=== PATIENT | male | born 1950 | race Caucasian/White ===

== ENCOUNTER 2016-12-30 20:23 | Emergency (ER) | payer MEDICARE, OTHER ==
[2016-12-30 20:31] VITALS: PULSE 64
--- NOTE | 2016-12-30 20:36 | ERPHSYRPT ---
- History of Present Illness Time Seen by Provider: 12/30/16 20:31 Source: patient, family Exam Limitations: no limitations Physician History: pt struck his left forearm with a coke can swatting a wasp at noon and it swelled up afterward; does not think it was a sting but has rl when moving it; pt had prior stent but has no cardiac symptoms no CP or pressure or SOB , left arm pain is reproduced exactly by palpation of the erythematous swollen distal left arm upp joints nontender Occurred: this afternoon Method of Injury: direct blow Quality: constant Severity of Pain-Max: mild Severity of Pain-Current: mild Extremities Pain Location: forearm: left Modifying Factors: Improves With: cold therapy, immobilization, movement Associated Symptoms: none, No chest discomfort, No chest pain, No dyspnea, No jaw pain, No neck pain, No short of breath Allergies/Adverse Reactions: No Known Drug Allergies Allergy (Unverified 12/30/16 20:47) Home Medications: Aspirin 81 mg PO DAILY 03/31/15 [History] Buspirone HCl [Buspar] 7.5 mg PO 03/31/15 [History] Nitroglycerin 0.4 mg Tablet [Nitrostat 0.4 MG Tablet] 0.4 mg SL UD [History] Omeprazole 20 MG [Prilosec 20 mg] 20 mg PO DAILY 03/31/15 [History] Pravastatin Sodium 40 mg PO DAILY 03/31/15 [History] Ramipril [Altace] 2.5 mg PO DAILY 03/31/15 [History] Tamsulosin HCl 0.4 mg [Flomax 0.4 MG] 0.4 mg PO HS 03/31/15 [History] - Review of Systems Constitutional: No Fever, No Chills Eyes: No Symptoms Ears, Nose, & Throat: No Symptoms Respiratory: No Cough, No Dyspnea Cardiac: No Chest Pain, No Edema, No Syncope Abdominal/Gastrointestinal: No Abdominal Pain, No Nausea, No Vomiting, No Diarrhea Genitourinary Symptoms: No Dysuria Musculoskeletal: Injury (left forearm and reproduces pain exactly), No Back Pain , No Neck Pain Skin: No Rash Neurological: No Dizziness, No Focal Weakness, No Sensory Changes Psychological: No Symptoms Endocrine: No Symptoms All Other Systems: Reviewed and Negative - Past Medical History Pertinent Past Medical History: Yes Neurological History: No Pertinent History ENT History: No Pertinent History Cardiac History: High Cholesterol, Hypertension, Other Respiratory History: No Pertinent History Endocrine Medical History: No Pertinent History Musculoskeletal History: No Pertinent History GI Medical History: GERD History: No Pertinent History Psycho-Social History: No Pertinent History Male Reproductive Disorders: Other Other Medical History: states not sure why he takes flomax,denies prostate problems,heart attack 2006 - Past Surgical History Past Surgical History: Yes Neuro Surgical History: No Pertinent History Cardiac: Cardiac Stent Respiratory: No Pertinent History Gastrointestinal: Cholecystectomy Genitourinary: No Pertinent History Musculoskeletal: No Pertinent History Male Surgical History: No Pertinent History Other Surgical History: 2006 heart attack with stent placed, - Social History Smoking Status: Never smoker Exposure to second hand smoke: No Drug Use: none - Nursing Vital Signs Nursing Vital Signs: Initial Vital Signs Temperature 97.9 F 12/30/16 20:30 Pulse Rate 64 12/30/16 20:30 Respiratory Rate 18 12/30/16 20:30 Blood Pressure 141/77 12/30/16 20:30 O2 Sat by Pulse Oximetry 98 12/30/16 20:30 Pain Scale Pain Intensity 2 - Physical Exam General Appearance: no apparent distress, alert Eyes, Ears, Nose, Throat Exam: pharynx normal, moist mucous membranes, No pharyngeal erythema Neck Exam: non-tender, supple, No meningismus Cardiovascular/Respiratory Exam: chest non-tender, normal breath sounds, regular rate/rhythm, heart sounds normal, no respiratory distress, No rales, No rhonchi, No wheezing Abdominal Exam: non-tender, No guarding Back Exam: normal inspection, normal range of motion, No vertebral tenderness Shoulder Exam: normal inspection, non-tender, no evidence of injury, normal ROM Elbow/Forearm Exam: normal inspection, normal ROM, soft tissue tenderness, swelling (distal forearm ) Wrist Exam: normal inspection, non-tender, no evidence of injury, normal ROM Hand Exam: normal inspection, non-tender, no evidence of injury, normal ROM DTR - Upper Extremity Exam: bicep (R): 2+, bicep (L): 2+, tricep (R): 2+, tricep (L): 2+ Neuro/Tendon Exam: normal sensation, normal motor functions, normal tendon functions Mental Status Exam: alert, oriented x 3, cooperative Skin Exam: normal color, warm, dry, No rash SpO2 Interpretation: normal SpO2: 98 Oxygen Delivery: Room Air - Course Nursing assessment & vital signs reviewed: Yes - Radiology Exams Left Forearm X-ray Interpretation: Reviewed by me, No Fracture Ordered Tests: Active Orders 24 hr Category Date Time Status Ice Pack, Apply PRN Care 12/30/16 20:32 Active FOREARM Stat Exams 12/30/16 20:37 Taken Medication Summary Discontinued Medications Generic Name Dose Route Start Last Admin Trade Name Berta PRN Reason Stop Dose Admin Diphenhydramine HCl 50 mg 12/30/16 20:38 12/30/16 20:42 Benadryl 25 Mg Capsule PO 12/30/16 20:39 50 mg STAT ONE Administration Diphenhydramine HCl Confirm 12/30/16 20:41 Benadryl 25 Mg Capsule Administered 12/30/16 20:42 Dose 50 mg .ROUTE .STK-MED ONE - Progress Progress: improved, re-examined Progress Note: 12/30/16 21:23 swelling gradually decreasing no additional symptoms or concerns Counseled pt/family regarding: diagnosis, need for follow-up, rad results - Departure Time of Disposition: 21:29 Departure Disposition: Home Clinical Impression: Contusion of left forearm, beesting Condition: Good Critical Care Time: No Referrals: MAN [facility]ON [Primary Care Provider] - Instructions: Care for an Insect Bite or Sting, Insect Bites and Stings, Contusion Additional Instructions: followup your blood pressure with your Dr. continue to use intermittent ice , rest and elevate arm next 24 hours ; followup with your Dr. or return if not resolving next few days or if increased swelling or redness;
[2016-12-30] MEDS ORDERED: BENADRYL 25 MG CAPSULE PO ONE (20:38)
[2016-12-30] MEDS ORDERED: BENADRYL 25 MG CAPSULE ONE (20:41)
[2016-12-30 21:46] VITALS: BP 110/74; O2SAT 97
--- NOTE | 2016-12-31 09:54 | XRAY ---
Indication: Pain following injury. Comparison: None 2 views of the left forearm obtained. No bony, articular, or soft tissue abnormalities.
== END 2016-12-30 21:46 | disposition home or self-care (01) ==
LOC: ED 20:23
DX: S50.12XA Contusion of left forearm, initial encounter (principal); T63.441A Toxic effect of venom of bees, accidental (unintentional), initial encounter
CPT/HCPCS: 73090; 99283; A9270-GY

== ENCOUNTER 2019-11-11 15:58 | Observation (INO) | payer MEDICARE ==
--- NOTE | 2019-11-11 16:11 | ERPHSYRPT ---
- History of Present Illness Time Seen by Provider: 11/11/19 16:00 Source: patient Exam Limitations: no limitations Patient Subjective Stated Complaint: pt here for was outside for 15 mins today cutting boards and became dizzy and lightheaded, he states he worked outside y as well. denies any chest pain Triage Nursing Assessment: pt alert, arrived per ambulance, mask applied to pt, resp easy, skin warm,moist, pink, no pain,moves all ext well. no edema noted, Physician History: Patient is a 69-year-old male presents to our ED with complaints of dizziness lightheadedness and a headache. Patient was working outdoors in the hot weather cutting wood. Patient became symptomatic and sat down on the steps. Symptoms did not resolve. Patient called 911 for an evaluation. No associated chest pain. No nausea or vomiting. No diaphoresis. Symptoms are mild to moderate in intensity. No specific worsening or improving factors. Patient voices no other complaints at this time. Timing/Duration: today Severity: moderate Modifying Factors: Improves With: nothing Associated Symptoms: headaches, No shortness of breath, No rash, No syncope, No seizure Allergies/Adverse Reactions: acetaminophen [From [place]] Allergy (Verified 11/11/19 16:07) hydrocodone [From [place]] Allergy (Verified 11/11/19 16:07) Home Medications: Buspirone HCl [Buspar] 15 mg PO BID 03/31/15 [History] Nitroglycerin 0.4 mg Tablet [Nitrostat 0.4 MG Tablet] 0.4 mg SL UD PRN 03/31/15 [History] Pravastatin Sodium 40 mg PO HS 03/31/15 [History] Tamsulosin HCl 0.4 mg [Flomax 0.4 MG] 0.4 mg PO HS 03/31/15 [History] Diltiazem HCl [Diltiazem ER] 180 mg PO DAILY 06/30/19 [History] Omeprazole 10 mg PO DAILY 06/30/19 [History] Warfarin Sodium 5 mg PO SUMOWEFRSA@1800 06/30/19 [History] Warfarin Sodium 7.5 mg PO TUTH@1800 06/30/19 [History] Hx Tetanus, Diphtheria Vaccination/Date Given: Yes (2011) Hx Influenza Vaccination/Date Given: Yes Hx Pneumococcal Vaccination/Date Given: Yes Immunizations Up to Date: Yes Travel Risk - International Travel Have you traveled outside of the country in past 3 weeks: No - Coronavirus Screening Are you exhibiting any of the following symptoms?: No Close contact with a COVID-19 positive Pt in past 14-21 Days: No - Review of Systems Constitutional: No Symptoms, No Fever, No Chills Eyes: No Symptoms Ears, Nose, & Throat: No Symptoms Respiratory: No Symptoms, No Cough, No Dyspnea Cardiac: No Symptoms, No Chest Pain, No Edema, No Syncope Abdominal/Gastrointestinal: No Symptoms, No Abdominal Pain, No Nausea, No Vomiting, No Diarrhea Genitourinary Symptoms: No Symptoms, No Dysuria Musculoskeletal: No Symptoms, No Back Pain, No Neck Pain Skin: No Symptoms, No Rash Neurological: No Symptoms, No Dizziness, No Focal Weakness, No Sensory Changes Psychological: No Symptoms Endocrine: No Symptoms Hematologic/Lymphatic: No Symptoms Immunological/Allergic: No Symptoms All Other Systems: Reviewed and Negative - Past Medical History Pertinent Past Medical History: Yes Neurological History: Migraines ENT History: No Pertinent History Cardiac History: Coronary Artery Disease, Myocardial Infarction ([place]) Respiratory History: Sleep Apnea Endocrine Medical History: No Pertinent History Musculoskeletal History: No Pertinent History GI Medical History: GERD History: No Pertinent History Psycho-Social History: No Pertinent History Male Reproductive Disorders: Other Other Medical History: [place] 2006, GALLBLADDER REMOVED 25+ YEARS AGO - Past Surgical History Past Surgical History: Yes Neuro Surgical History: No Pertinent History Cardiac: Cardiac Catheterization, Cardiac Stent Respiratory: No Pertinent History Gastrointestinal: Cholecystectomy Genitourinary: No Pertinent History Musculoskeletal: No Pertinent History Male Surgical History: No Pertinent History Other Surgical History: 2006 heart attack with stent placed, - Social History Smoking Status: Never smoker Exposure to second hand smoke: No Drug Use: none Patient Lives Alone: No - Nursing Vital Signs Nursing Vital Signs: Initial Vital Signs Temperature 97.9 F 11/11/19 15:59 Pulse Rate 63 11/11/19 15:59 Respiratory Rate 16 11/11/19 15:59 Blood Pressure 136/70 11/11/19 15:59 O2 Sat by Pulse Oximetry 97 11/11/19 15:59 Pain Scale Pain Intensity 0 - Physical Exam General Appearance: no apparent distress, alert Eye Exam: PERRL/EOMI, eyes nml inspection Ears, Nose, Throat Exam: normal ENT inspection, TMs normal, pharynx normal, moist mucous membranes Neck Exam: normal inspection, non-tender, supple, full range of motion Respiratory Exam: normal breath sounds, lungs clear, No respiratory distress Cardiovascular Exam: regular rate/rhythm, normal heart sounds, normal peripheral pulses Gastrointestinal/Abdomen Exam: soft, normal bowel sounds, No tenderness, No mass Male Genitalia Exam: normal genitalia Back Exam: normal inspection, normal range of motion, No CVA tenderness, No vertebral tenderness Extremity Exam: normal inspection, normal range of motion, pelvis stable Neurologic Exam: alert, oriented x 3, cooperative, normal mood/affect, nml cerebellar function, nml station & gait, sensation nml, No motor deficits Skin Exam: normal color, warm, dry, No rash Lymphatic Exam: No adenopathy SpO2 Interpretation: normal SpO2: 97 O2 Delivery: Room Air - Course Nursing assessment & vital signs reviewed: Yes EKG Interpreted by Me: RATE (59), Sinus Rhythm, NORMAL AXIS, NORMAL INTERVALS, Left Bundle Branch Block - Radiology Exams Chest X-ray Interpretation: Teleradiologist Report (Chest again demonstrates normal heart and lungs. Bony thorax intact with minimal degenerative changes. No new acute findings.) - CT Exams Head CT Interpretation: Tele-radiologist Report (Normal appearing brain parenchyma ventricles and bony calvarium. Visualized paranasal sinuses and mastoid air cells are clear.) Ordered Tests: Active Orders 24 hr Category Date Time Status Newspaper Peddler STAT Care 11/11/19 16:09 Active EKG-ER Only STAT Care 11/11/19 16:07 Active IV Insertion STAT Care 11/11/19 16:07 Active Pulse Oximetry (ED) STAT Care 11/11/19 16:07 Active CHEST 1 VIEW (PORTABLE) Stat Exams 11/11/19 16:09 Completed HEAD WITHOUT CONTRAST [CT] Stat Exams 11/11/19 16:11 Completed CBC W DIFF Stat Lab 11/11/19 16:07 Completed CMP Stat Lab 11/11/19 16:15 Completed MAGNESIUM Stat Lab 11/11/19 16:15 Completed PROTIME WITH INR Stat Lab 11/11/19 16:15 Received PTT Stat Lab 11/11/19 16:15 Received TROPONIN Q3H Lab 11/11/19 16:15 Completed TROPONIN Q3H Lab 11/11/19 19:15 Ordered TROPONIN Q3H Lab 11/11/19 22:15 Ordered TROPONIN Q3H Lab 11/12/19 01:15 Ordered TROPONIN Q3H Lab 11/12/19 04:15 Ordered UA W/RFX UR CULTURE Stat Lab 11/11/19 16:09 Uncollected Medication Summary Generic Name Dose Route Start Last Admin Trade Name Berta PRN Reason Stop Dose Admin Sodium Chloride 1,000 mls @ 100 mls/hr 11/11/19 16:15 11/11/19 16:25 Sodium Chloride 0.9% 1000 Ml IV 12/11/19 16:14 100 mls/hr .Q10H PETRA Administration Lab/Rad Data: Laboratory Result Diagrams 11/11/19 16:07 11/11/19 16:15 Laboratory Results 11/11/19 11/11/19 11/11/19 Range/Units 16:15 16:15 16:15 WBC (4.0-10.5) K/mm3 RBC (4.1-5.6) M/mm3 Hgb (12.5-18.0) gm/dl Hct (42-50) % MCV (78-100) fl MCH (26-32) pg MCHC (32-36) g/dl RDW (11.5-14.0) % Plt Count (150-450) K/mm3 MPV (7.5-11.0) fl Gran % (36.0-66.0) % Eos # (Auto) (0-0.5) Absolute Lymphs (auto) (1.0-4.6) Absolute Monos (auto) (0.0-1.3) Lymphocytes % (24.0-44.0) % Monocytes % (0.0-12.0) % Eosinophils % (0.00-5.0) % Basophils % (0.0-0.4) % Absolute Granulocytes (1.4-6.9) Basophils # (0-0.4) PT 22.2 H (8.83-12.87) SECONDS INR 1.95 (0.8-3.0) APTT 31.2 (24.1-36.1) SECONDS Sodium 141 (137-145) mmol/L Potassium 3.9 (3.5-5.1) mmol/L Chloride 106 (98-107) mmol/L Carbon Dioxide 28 (22-30) mmol/L Anion Gap 10.4 (5-15) MEQ/L BUN 23 H (9-20) mg/dL Creatinine 1.18 (0.66-1.25) mg/dL Estimated GFR > 60.0 ML/MIN Glucose 102 (74-106) mg/dL Calcium 9.0 (8.4-10.2) mg/dL Magnesium 2.1 (1.6-2.3) mg/dL Total Bilirubin 1.40 H (0.2-1.3) mg/dL AST 24 (17-59) U/L ALT 19 (0-50) U/L Alkaline Phosphatase 75 (38-126) U/L Troponin I < 0.012 (0.000-0.034) ng/mL Serum Total Protein 6.9 (6.3-8.2) g/dL Albumin 4.0 (3.5-5.0) g/dL // Range/Units 16:07 WBC 6.2 (4.0-10.5) K/mm3 RBC 4.26 (4.1-5.6) M/mm3 Hgb 13.5 (12.5-18.0) gm/dl Hct 41.0 L (42-50) % MCV 96.2 (78-100) fl MCH 31.7 (26-32) pg MCHC 32.9 (32-36) g/dl RDW 13.2 (11.5-14.0) % Plt Count 168 (150-450) K/mm3 MPV 12.0 H (7.5-11.0) fl Gran % 46.7 (36.0-66.0) % Eos # (Auto) 0.20 (0-0.5) Absolute Lymphs (auto) 2.42 (1.0-4.6) Absolute Monos (auto) 0.66 (0.0-1.3) Lymphocytes % 39.0 (24.0-44.0) % Monocytes % 10.6 (0.0-12.0) % Eosinophils % 3.2 (0.00-5.0) % Basophils % 0.5 (0.0-0.4) % Absolute Granulocytes 2.89 (1.4-6.9) Basophils # 0.03 (0-0.4) PT (8.83-12.87) SECONDS INR (0.8-3.0) APTT (24.1-36.1) SECONDS Sodium (137-145) mmol/L Potassium (3.5-5.1) mmol/L Chloride (98-107) mmol/L Carbon Dioxide (22-30) mmol/L Anion Gap (5-15) MEQ/L BUN (9-20) mg/dL Creatinine (0.66-1.25) mg/dL Estimated GFR ML/MIN Glucose (74-106) mg/dL Calcium (8.4-10.2) mg/dL Magnesium (1.6-2.3) mg/dL Total Bilirubin (0.2-1.3) mg/dL AST (17-59) U/L ALT (0-50) U/L Alkaline Phosphatase (38-126) U/L Troponin I (0.000-0.034) ng/mL Serum Total Protein (6.3-8.2) g/dL Albumin (3.5-5.0) g/dL - Departure Departure Disposition: Home, In-patient Admission Clinical Impression: Near syncope, LBBB (left bundle branch block) Condition: Stable Critical Care Time: No Referrals: [facility] [Primary Care Provider] -
[2019-11-11] MEDS ORDERED: Sodium Chloride 0.9% 1000 ML 1,000 ML IV SCH ×2 (16:15→20:19)
[2019-11-11 16:20] LABS: Absolute Neutrophil Ct (ANC) 2.89 (1.4-6.9); BASOPHIL % 0.5 % (0.0-0.4); Basophil (Absolute #) 0.03 (0-0.4); Eosinophil % 3.2 % (0.00-5.0); Hemoglobin 13.5 gm/dl (12.5-18.0); Lymphocyte (Absolute #) 2.42 (1.0-4.6); Mean Cell Volume 96.2 fl (78-100); Mean Corpuscular Hemoglobin 31.7 pg (26-32); Mean Corpuscular Hgb Concent. 32.9 g/dl (32-36); Monocyte (Absolute #) 0.66 (0.0-1.3); Monocytes % 10.6 % (0.0-12.0); Neutrophil % 46.7 % (36.0-66.0); Platelet Count 168 K/mm3 (150-450); Red Blood Count 4.26 M/mm3 (4.1-5.6); Red Cell Distribution Width 13.2 % (11.5-14.0); White Blood Count 6.2 K/mm3 (4.0-10.5)
[2019-11-11] MEDS ORDERED: Sodium Chloride 0.9% 1000 ML 1,000 ML ONE (16:20)
--- NOTE | 2019-11-11 16:31 | XRAY ---
Indication: Chest pain. Heat exhaustion. Comparison: May 11, 2014. Portable chest again demonstrates normal heart and lungs. Bony thorax intact again with minimal degenerative changes. No new/acute findings.
--- NOTE | 2019-11-11 16:31 | XRAY ---
Indication: Headache and dizziness. Heat exhaustion. Multiple contiguous axial images obtained through the head without contrast. Comparison: October 12, 2006. Again normal appearing brain parenchyma, ventricles, and bony calvarium. Visualized paranasal sinuses and mastoid air cells are clear. Impression: Continued normal CT head without contrast exam.
[2019-11-11 16:33] LABS: ALKALINE PHOSPHATASE 75 U/L (38-126); ANION GAP 10.4 MEQ/L (5-15); BLOOD UREA NITROGEN 23 mg/dL (9-20); CHLORIDE 106 mmol/L (98-107); Carbon Dioxide 28 mmol/L (22-30); Creatinine 1 1.18 mg/dL (0.66-1.25); Glucose 102 mg/dL (74-106); MAGNESIUM 2.1 mg/dL (1.6-2.3); Potassium 3.9 mmol/L (3.5-5.1); SGOT/AST 24 U/L (17-59); SGPT/ALT 19 U/L (0-50); SODIUM 141 mmol/L (137-145); Total Protein 6.9 g/dL (6.3-8.2)
[2019-11-11 16:35] LABS: INR 1.95 (0.8-3.0); PROTIME 22.2 SECONDS (8.83-12.87)
[2019-11-11 16:38] LABS: PTT 31.2 SECONDS (24.1-36.1)
[2019-11-11 19:21] LABS: Appearance CLEAR (CLEAR); Bilirubin NEGATIVE (NEGATIVE); Blood NEGATIVE Ery/ul (0-5); Glucose NEGATIVE (NEGATIVE); Ketones SMALL (NEGATIVE); Leukocyte Esterase NEGATIVE (NEGATIVE); Mucus SLIGHT /HPF (NEGATIVE); Nitrite NEGATIVE (NEGATIVE); Protein,Urine Dip NEGATIVE (Negative); Specific Gravity 1.017 (1.005-1.025); Urobilinogen 2 mg/dL (0-1)
[2019-11-11 19:27] LABS: Bacteria NONE SEEN /HPF (NEGATIVE); WBC NONE SEEN /HPF (0-5)
[2019-11-11] MEDS ORDERED: Nitrostat 0.4 MG Tablet SL PRN (20:37)
[2019-11-11] MEDS ORDERED: Coumadin 5 MG PO ONE (20:38)
[2019-11-11] MEDS ORDERED: Lactated Ringers 1,000 ML IV ONE (20:50)
[2019-11-11] MEDS ORDERED: ZOCOR 20MG PO SCH (22:00)
[2019-11-11] MEDS ORDERED: Flomax 0.4 MG PO SCH (22:00)
--- NOTE | 2019-11-11 22:00 | PCM.HP ---
History of Present Illness - Chief Complaint Chief Complaint: near syncope History of Present Illness: is a 69 year old male pt of mine from [facility] with CAD (hx RI and stent in 2006) who was seen in ER today for dizziness, found to have LBBB of undetermined age, and admitted for r/o RI. He was working outside for about 15 min and started having lightheadedness, band like pain around his head, and some nausea. He sat down; denies any chest pain or SOB, no palpitations. In ER his EKG was nsr, no ST changes, but LBBB and no old EKG to compare. First troponin is negative. In April of this year he apparently had some sort of arrhythmia and syncopal episode and was started on coumadin. I spoke with Dr. Bach, plastics seasoner operator for Dr. Duval, and he agreed with admitting the pt for serial troponins and overnight observation. - Review of Systems Abdominal/Gastrointestinal: Nausea Neurological: Dizziness, Headache All Other Systems: Reviewed and Negative Medications & Allergies Home Medications: Home Medication List Buspirone HCl [Buspar] 15 mg PO BID 03/31/15 [History Confirmed 11/11/19] Nitroglycerin 0.4 mg Tablet [Nitrostat 0.4 MG Tablet] 0.4 mg SL UD PRN 03/31/15 [History Confirmed 11/11/19] Pravastatin Sodium 40 mg PO HS 03/31/15 [History Confirmed 11/11/19] Tamsulosin HCl 0.4 mg [Flomax 0.4 MG] 0.4 mg PO HS 03/31/15 [History Confirmed 11/11/19] Diltiazem HCl [Diltiazem ER] 180 mg PO DAILY 06/30/19 [History Confirmed 11/11/19] Omeprazole 10 mg PO DAILY 06/30/19 [History Confirmed 11/11/19] Warfarin Sodium 5 mg PO SUMOWEFRSA@1800 06/30/19 [History Confirmed 11/11/19] Warfarin Sodium 7.5 mg PO TUTH@1800 06/30/19 [History Confirmed 11/11/19] Allergies/Adverse Reactions: Allergies Allergy/AdvReac Type Severity Reaction Status Date / Time acetaminophen [From [place]] Allergy Verified 11/11/19 16:07 hydrocodone [From [place]] Allergy Verified 11/11/19 16:07 - Past Medical History Past Medical History: Yes Neurological History: Migraines ENT History: No Pertinent History Cardiac History: Coronary Artery Disease, Myocardial Infarction (RI) Respiratory History: Sleep Apnea Endocrine Medical History: No Pertinent History Musculoskelatal History: No Pertinent History GI Medical History: GERD History: No Pertinent History Pyscho-Social History: Anxiety Male Reproductive Disorders: Other Comment: RI 2006, GALLBLADDER REMOVED 25+ YEARS AGO - Past Surgical History Past Surgical History: Yes Neuro Surgical History: No Pertinent History Cardiac History: Cardiac Catheterization, Cardiac Stent Respiratory Surgery: No Pertinent History GI Surgical History: Cholecystectomy Genitourinary Surgical Hx: No Pertinent History Musculskeletal Surgical Hx: No Pertinent History, Orthopedic Surgery Male Surgical History: No Pertinent History Other Surgical History: 2006 heart attack with stent placed, shoulder surgery may 2019 - Social History Smoking Status: Never smoker Exposure to second hand smoke: No Alcohol: Rarely Drug Use: none - Physical Exam Vital Signs: Vital Signs - 24 hr Temp Pulse Resp BP Pulse Ox 11/11/19 21:20 96 11/11/19 21:01 98.4 F 61 17 149/71 94 L 11/11/19 19:04 64 19 133/73 98 11/11/19 18:36 65 19 140/67 97 11/11/19 18:35 97 11/11/19 16:54 97 11/11/19 15:59 97.9 F 63 16 136/70 97 General Appearance: no apparent distress, alert Neurologic Exam: oriented x 3, cooperative Eye Exam: eyes nml inspection Ears, Nose, Throat Exam: moist mucous membranes Neck Exam: normal inspection, non-tender, No lymphadenopathy Respiratory Exam: normal breath sounds, lungs clear, No crackles/rales, No rhonchi, No wheezing Cardiovascular Exam: regular rate/rhythm, normal heart sounds, No murmur Back Exam: normal inspection, No rash Extremity Exam: No swelling, No tenderness Skin Exam: normal color, warm, dry, No rash Results - Labs Lab/Micro Results: Lab Results-Last 24 Hours 11/11/19 11/11/19 11/11/19 Range/Units 16:07 16:15 16:15 WBC 6.2 (4.0-10.5) K/mm3 RBC 4.26 (4.1-5.6) M/mm3 Hgb 13.5 (12.5-18.0) gm/dl Hct 41.0 L (42-50) % MCV 96.2 (78-100) fl MCH 31.7 (26-32) pg MCHC 32.9 (32-36) g/dl RDW 13.2 (11.5-14.0) % Plt Count 168 (150-450) K/mm3 MPV 12.0 H (7.5-11.0) fl Gran % 46.7 (36.0-66.0) % Eos # (Auto) 0.20 (0-0.5) Absolute Lymphs (auto) 2.42 (1.0-4.6) Absolute Monos (auto) 0.66 (0.0-1.3) Lymphocytes % 39.0 (24.0-44.0) % Monocytes % 10.6 (0.0-12.0) % Eosinophils % 3.2 (0.00-5.0) % Basophils % 0.5 (0.0-0.4) % Absolute Granulocytes 2.89 (1.4-6.9) Basophils # 0.03 (0-0.4) PT (8.83-12.87) SECONDS INR (0.8-3.0) APTT (24.1-36.1) SECONDS Sodium 141 (137-145) mmol/L Potassium 3.9 (3.5-5.1) mmol/L Chloride 106 (98-107) mmol/L Carbon Dioxide 28 (22-30) mmol/L Anion Gap 10.4 (5-15) MEQ/L BUN 23 H (9-20) mg/dL Creatinine 1.18 (0.66-1.25) mg/dL Estimated GFR > 60.0 ML/MIN Glucose 102 (74-106) mg/dL Calcium 9.0 (8.4-10.2) mg/dL Magnesium 2.1 (1.6-2.3) mg/dL Total Bilirubin 1.40 H (0.2-1.3) mg/dL AST 24 (17-59) U/L ALT 19 (0-50) U/L Alkaline Phosphatase 75 (38-126) U/L Troponin I < 0.012 (0.000-0.034) ng/mL Serum Total Protein 6.9 (6.3-8.2) g/dL Albumin 4.0 (3.5-5.0) g/dL Urine Color (YELLOW) Urine Appearance (CLEAR) Urine pH (5-6) Ur Specific [place] (1.005-1.025) Urine Protein (Negative) Urine Ketones (NEGATIVE) Urine Blood (0-5) Marquis/ul Urine Nitrite (NEGATIVE) Urine Bilirubin (NEGATIVE) Urine Urobilinogen (0-1) mg/dL Ur Leukocyte Esterase (NEGATIVE) Urine WBC (Auto) (0-5) /HPF Urine RBC (Auto) (0-2) /HPF U Epithel Cells (Auto) (FEW) /HPF Urine Bacteria (Auto) (NEGATIVE) /HPF Urine Mucus (Auto) (NEGATIVE) /HPF Urine Culture Reflexed (NO) Urine Glucose (NEGATIVE) mg/dL 11/11/19 11/11/19 Range/Units 16:15 19:06 WBC (4.0-10.5) K/mm3 RBC (4.1-5.6) M/mm3 Hgb (12.5-18.0) gm/dl Hct (42-50) % MCV (78-100) fl MCH (26-32) pg MCHC (32-36) g/dl RDW (11.5-14.0) % Plt Count (150-450) K/mm3 MPV (7.5-11.0) fl Gran % (36.0-66.0) % Eos # (Auto) (0-0.5) Absolute Lymphs (auto) (1.0-4.6) Absolute Monos (auto) (0.0-1.3) Lymphocytes % (24.0-44.0) % Monocytes % (0.0-12.0) % Eosinophils % (0.00-5.0) % Basophils % (0.0-0.4) % Absolute Granulocytes (1.4-6.9) Basophils # (0-0.4) PT 22.2 H (8.83-12.87) SECONDS INR 1.95 (0.8-3.0) APTT 31.2 (24.1-36.1) SECONDS Sodium (137-145) mmol/L Potassium (3.5-5.1) mmol/L Chloride (98-107) mmol/L Carbon Dioxide (22-30) mmol/L Anion Gap (5-15) MEQ/L BUN (9-20) mg/dL Creatinine (0.66-1.25) mg/dL Estimated GFR ML/MIN Glucose (74-106) mg/dL Calcium (8.4-10.2) mg/dL Magnesium (1.6-2.3) mg/dL Total Bilirubin (0.2-1.3) mg/dL AST (17-59) U/L ALT (0-50) U/L Alkaline Phosphatase (38-126) U/L Troponin I (0.000-0.034) ng/mL Serum Total Protein (6.3-8.2) g/dL Albumin (3.5-5.0) g/dL Urine Color YELLOW (YELLOW) Urine Appearance CLEAR (CLEAR) Urine pH 6.0 (5-6) Ur Specific [place] 1.017 (1.005-1.025) Urine Protein NEGATIVE (Negative) Urine Ketones SMALL (NEGATIVE) Urine Blood NEGATIVE (0-5) Marquis/ul Urine Nitrite NEGATIVE (NEGATIVE) Urine Bilirubin NEGATIVE (NEGATIVE) Urine Urobilinogen 2 (0-1) mg/dL Ur Leukocyte Esterase NEGATIVE (NEGATIVE) Urine WBC (Auto) NONE SEEN (0-5) /HPF Urine RBC (Auto) NONE (0-2) /HPF U Epithel Cells (Auto) NONE (FEW) /HPF Urine Bacteria (Auto) NONE SEEN (NEGATIVE) /HPF Urine Mucus (Auto) SLIGHT (NEGATIVE) /HPF Urine Culture Reflexed NO (NO) Urine Glucose NEGATIVE (NEGATIVE) mg/dL - Radiology Impressions Radiology Exams & Impressions: Radiology Procedures Category Date Time Status CHEST 1 VIEW (PORTABLE) Stat Exams 11/11/19 16:09 Completed HEAD WITHOUT CONTRAST [CT] Stat Exams 11/11/19 16:11 Completed - Other Procedures and Tests Respiratory Therapy 11/11/19 21:31 BiPap/CPAP ROUTINE Assessment/Plan (1) Near syncope Current Visit: Yes Status: Acute Assessment & Plan: admitting for serial troponins. If troponins #2 is elevated, Dr. Bach would like to know and would transfer pt up to [facility]. (2) LBBB (left bundle branch block) Current Visit: Yes Status: Acute Assessment & Plan: Unsure the chronicity, no old EKG available. Code(s): I44.7 - LEFT BUNDLE-BRANCH BLOCK, UNSPECIFIED
[2019-11-11] MEDS: BUSPAR 5 MG PO SCH (22:11)
[2019-11-12] MEDS ORDERED: Lactated Ringers 1,000 ML IV SCH (05:00)
[2019-11-12 05:17] LABS: Absolute Neutrophil Ct (ANC) 2.98 (1.4-6.9); BASOPHIL % 0.5 % (0.0-0.4); Basophil (Absolute #) 0.03 (0-0.4); Eosinophil % 3.4 % (0.00-5.0); Hematocrit 41.3 % (42-50); Hemoglobin 13.6 gm/dl (12.5-18.0); Lymphocytes % 33.6 % (24.0-44.0); Mean Cell Volume 96.5 fl (78-100); Mean Corpuscular Hemoglobin 31.8 pg (26-32); Mean Corpuscular Hgb Concent. 32.9 g/dl (32-36); Mean Platelet Volume 11.6 fl (7.5-11.0); Monocyte (Absolute #) 0.75 (0.0-1.3); Monocytes % 12.6 % (0.0-12.0); Neutrophil % 49.9 % (36.0-66.0); Platelet Count 148 K/mm3 (150-450); Red Blood Count 4.28 M/mm3 (4.1-5.6)
[2019-11-12 05:37] LABS: ALBUMIN 3.4 g/dL (3.5-5.0); ALKALINE PHOSPHATASE 64 U/L (38-126); ANION GAP 6.9 MEQ/L (5-15); BLOOD UREA NITROGEN 17 mg/dL (9-20); CHLORIDE 109 mmol/L (98-107); Calcium 8.9 mg/dL (8.4-10.2); Carbon Dioxide 29 mmol/L (22-30); Creatinine 1 0.81 mg/dL (0.66-1.25); Glucose 78 mg/dL (74-106); Potassium 4.1 mmol/L (3.5-5.1); SGOT/AST 22 U/L (17-59); SGPT/ALT 17 U/L (0-50); SODIUM 140 mmol/L (137-145); Total Protein 6.1 g/dL (6.3-8.2)
[2019-11-12 08:14] VITALS: PULSE 64
[2019-11-12] MEDS: BUSPAR 5 MG PO SCH (09:58)
[2019-11-12] MEDS ORDERED: Cardizem CD 180 MG PO SCH (10:00)
[2019-11-12] MEDS ORDERED: DILTIAZEM HCL 180 MG PO SCH (10:00)
[2019-11-12] MEDS ORDERED: OMEPRAZOLE 10 MG PO SCH (10:00)
[2019-11-12] MEDS ORDERED: Protonix 20MG Tablet PO SCH (10:00)
[2019-11-12 10:10] VITALS: O2SAT 97
[2019-11-12 13:04] VITALS: BP 115/56
--- NOTE | 2019-11-12 13:38 | PCM.DS ---
Discharge Summary Date of Admission: 11/11/19 19:58 Admitting Physician: MAN PINON Primary Care Provider: [facility] Allergies Allergies acetaminophen [From [place]] Allergy (Verified 11/11/19 16:07) hydrocodone [From [place]] Allergy (Verified 11/11/19 16:07) Hospital Summary - Hospital Course Hospital Course: Pt is a 69 yo male pt of mine with CAD who came in to ER with dizziness (lightheaded) and LBBB of unknown age and was admitted overnight to r/o [place]. His troponins were neg x 5. CT head neg. He had one episode of vertigo today that was momentary (has had in the past). Otherwise feeling great and ready to d/c to home. I spoke with Dr. Bach, component design engineer for Dr. Salazar, who agreed with admission at [facility] to watch the patient. Pt to f/u with Dr. Salazar on Dec 03 (first available). - Vitals & Intake/Output Vital Signs: Vital Signs Temperature 98.4 F 11/12/19 12:00 Pulse Rate 64 11/12/19 12:00 Respiratory Rate 18 11/12/19 12:00 Blood Pressure 115/56 11/12/19 12:00 O2 Sat by Pulse Oximetry 97 11/12/19 12:00 Intake & Output: Intake & Output 11/10/19 11/11/19 11/12/19 11/13/19 11:59 11:59 11:59 11:59 Intake Total 1534 480 Output Total 550 Balance 984 480 Weight 80.8 kg - Lab Result Diagrams: 11/12/19 05:00 11/12/19 05:00 Lab Results-Last 24 Hrs: Lab Results-Last 24 Hours 11/11/19 11/11/19 11/11/19 Range/Units 16:07 16:15 16:15 WBC 6.2 (4.0-10.5) K/mm3 RBC 4.26 (4.1-5.6) M/mm3 Hgb 13.5 (12.5-18.0) gm/dl Hct 41.0 L (42-50) % MCV 96.2 (78-100) fl MCH 31.7 (26-32) pg MCHC 32.9 (32-36) g/dl RDW 13.2 (11.5-14.0) % Plt Count 168 (150-450) K/mm3 MPV 12.0 H (7.5-11.0) fl Gran % 46.7 (36.0-66.0) % Eos # (Auto) 0.20 (0-0.5) Absolute Lymphs (auto) 2.42 (1.0-4.6) Absolute Monos (auto) 0.66 (0.0-1.3) Lymphocytes % 39.0 (24.0-44.0) % Monocytes % 10.6 (0.0-12.0) % Eosinophils % 3.2 (0.00-5.0) % Basophils % 0.5 (0.0-0.4) % Absolute Granulocytes 2.89 (1.4-6.9) Basophils # 0.03 (0-0.4) PT (8.83-12.87) SECONDS INR (0.8-3.0) APTT (24.1-36.1) SECONDS Sodium 141 (137-145) mmol/L Potassium 3.9 (3.5-5.1) mmol/L Chloride 106 (98-107) mmol/L Carbon Dioxide 28 (22-30) mmol/L Anion Gap 10.4 (5-15) MEQ/L BUN 23 H (9-20) mg/dL Creatinine 1.18 (0.66-1.25) mg/dL Estimated GFR > 60.0 ML/MIN Glucose 102 (74-106) mg/dL Calcium 9.0 (8.4-10.2) mg/dL Magnesium 2.1 (1.6-2.3) mg/dL Total Bilirubin 1.40 H (0.2-1.3) mg/dL AST 24 (17-59) U/L ALT 19 (0-50) U/L Alkaline Phosphatase 75 (38-126) U/L Troponin I < 0.012 (0.000-0.034) ng/mL Serum Total Protein 6.9 (6.3-8.2) g/dL Albumin 4.0 (3.5-5.0) g/dL Urine Color (YELLOW) Urine Appearance (CLEAR) Urine pH (5-6) Ur Specific [place] (1.005-1.025) Urine Protein (Negative) Urine Ketones (NEGATIVE) Urine Blood (0-5) Marquis/ul Urine Nitrite (NEGATIVE) Urine Bilirubin (NEGATIVE) Urine Urobilinogen (0-1) mg/dL Ur Leukocyte Esterase (NEGATIVE) Urine WBC (Auto) (0-5) /HPF Urine RBC (Auto) (0-2) /HPF U Epithel Cells (Auto) (FEW) /HPF Urine Bacteria (Auto) (NEGATIVE) /HPF Urine Mucus (Auto) (NEGATIVE) /HPF Urine Culture Reflexed (NO) Urine Glucose (NEGATIVE) mg/dL 11/11/19 11/11/19 11/11/19 Range/Units 16:15 19:06 19:55 WBC (4.0-10.5) K/mm3 RBC (4.1-5.6) M/mm3 Hgb (12.5-18.0) gm/dl Hct (42-50) % MCV (78-100) fl MCH (26-32) pg MCHC (32-36) g/dl RDW (11.5-14.0) % Plt Count (150-450) K/mm3 MPV (7.5-11.0) fl Gran % (36.0-66.0) % Eos # (Auto) (0-0.5) Absolute Lymphs (auto) (1.0-4.6) Absolute Monos (auto) (0.0-1.3) Lymphocytes % (24.0-44.0) % Monocytes % (0.0-12.0) % Eosinophils % (0.00-5.0) % Basophils % (0.0-0.4) % Absolute Granulocytes (1.4-6.9) Basophils # (0-0.4) PT 22.2 H (8.83-12.87) SECONDS INR 1.95 (0.8-3.0) APTT 31.2 (24.1-36.1) SECONDS Sodium (137-145) mmol/L Potassium (3.5-5.1) mmol/L Chloride (98-107) mmol/L Carbon Dioxide (22-30) mmol/L Anion Gap (5-15) MEQ/L BUN (9-20) mg/dL Creatinine (0.66-1.25) mg/dL Estimated GFR ML/MIN Glucose (74-106) mg/dL Calcium (8.4-10.2) mg/dL Magnesium (1.6-2.3) mg/dL Total Bilirubin (0.2-1.3) mg/dL AST (17-59) U/L ALT (0-50) U/L Alkaline Phosphatase (38-126) U/L Troponin I < 0.012 (0.000-0.034) ng/mL Serum Total Protein (6.3-8.2) g/dL Albumin (3.5-5.0) g/dL Urine Color YELLOW (YELLOW) Urine Appearance CLEAR (CLEAR) Urine pH 6.0 (5-6) Ur Specific [place] 1.017 (1.005-1.025) Urine Protein NEGATIVE (Negative) Urine Ketones SMALL (NEGATIVE) Urine Blood NEGATIVE (0-5) Marquis/ul Urine Nitrite NEGATIVE (NEGATIVE) Urine Bilirubin NEGATIVE (NEGATIVE) Urine Urobilinogen 2 (0-1) mg/dL Ur Leukocyte Esterase NEGATIVE (NEGATIVE) Urine WBC (Auto) NONE SEEN (0-5) /HPF Urine RBC (Auto) NONE (0-2) /HPF U Epithel Cells (Auto) NONE (FEW) /HPF Urine Bacteria (Auto) NONE SEEN (NEGATIVE) /HPF Urine Mucus (Auto) SLIGHT (NEGATIVE) /HPF Urine Culture Reflexed NO (NO) Urine Glucose NEGATIVE (NEGATIVE) mg/dL 11/11/19 11/12/19 11/12/19 Range/Units 22:22 01:15 05:00 WBC (4.0-10.5) K/mm3 RBC (4.1-5.6) M/mm3 Hgb (12.5-18.0) gm/dl Hct (42-50) % MCV (78-100) fl MCH (26-32) pg MCHC (32-36) g/dl RDW (11.5-14.0) % Plt Count (150-450) K/mm3 MPV (7.5-11.0) fl Gran % (36.0-66.0) % Eos # (Auto) (0-0.5) Absolute Lymphs (auto) (1.0-4.6) Absolute Monos (auto) (0.0-1.3) Lymphocytes % (24.0-44.0) % Monocytes % (0.0-12.0) % Eosinophils % (0.00-5.0) % Basophils % (0.0-0.4) % Absolute Granulocytes (1.4-6.9) Basophils # (0-0.4) PT (8.83-12.87) SECONDS INR (0.8-3.0) APTT (24.1-36.1) SECONDS Sodium (137-145) mmol/L Potassium (3.5-5.1) mmol/L Chloride (98-107) mmol/L Carbon Dioxide (22-30) mmol/L Anion Gap (5-15) MEQ/L BUN (9-20) mg/dL Creatinine (0.66-1.25) mg/dL Estimated GFR ML/MIN Glucose (74-106) mg/dL Calcium (8.4-10.2) mg/dL Magnesium (1.6-2.3) mg/dL Total Bilirubin (0.2-1.3) mg/dL AST (17-59) U/L ALT (0-50) U/L Alkaline Phosphatase (38-126) U/L Troponin I < 0.012 < 0.012 < 0.012 (0.000-0.034) ng/mL Serum Total Protein (6.3-8.2) g/dL Albumin (3.5-5.0) g/dL Urine Color (YELLOW) Urine Appearance (CLEAR) Urine pH (5-6) Ur Specific [place] (1.005-1.025) Urine Protein (Negative) Urine Ketones (NEGATIVE) Urine Blood (0-5) Marquis/ul Urine Nitrite (NEGATIVE) Urine Bilirubin (NEGATIVE) Urine Urobilinogen (0-1) mg/dL Ur Leukocyte Esterase (NEGATIVE) Urine WBC (Auto) (0-5) /HPF Urine RBC (Auto) (0-2) /HPF U Epithel Cells (Auto) (FEW) /HPF Urine Bacteria (Auto) (NEGATIVE) /HPF Urine Mucus (Auto) (NEGATIVE) /HPF Urine Culture Reflexed (NO) Urine Glucose (NEGATIVE) mg/dL 11/12/19 11/12/19 Range/Units 05:00 05:00 WBC 6.0 (4.0-10.5) K/mm3 RBC 4.28 (4.1-5.6) M/mm3 Hgb 13.6 (12.5-18.0) gm/dl Hct 41.3 L (42-50) % MCV 96.5 (78-100) fl MCH 31.8 (26-32) pg MCHC 32.9 (32-36) g/dl RDW 13.0 (11.5-14.0) % Plt Count 148 L (150-450) K/mm3 MPV 11.6 H (7.5-11.0) fl Gran % 49.9 (36.0-66.0) % Eos # (Auto) 0.20 (0-0.5) Absolute Lymphs (auto) 2.00 (1.0-4.6) Absolute Monos (auto) 0.75 (0.0-1.3) Lymphocytes % 33.6 (24.0-44.0) % Monocytes % 12.6 H (0.0-12.0) % Eosinophils % 3.4 (0.00-5.0) % Basophils % 0.5 (0.0-0.4) % Absolute Granulocytes 2.98 (1.4-6.9) Basophils # 0.03 (0-0.4) PT (8.83-12.87) SECONDS INR (0.8-3.0) APTT (24.1-36.1) SECONDS Sodium 140 (137-145) mmol/L Potassium 4.1 (3.5-5.1) mmol/L Chloride 109 H (98-107) mmol/L Carbon Dioxide 29 (22-30) mmol/L Anion Gap 6.9 (5-15) MEQ/L BUN 17 (9-20) mg/dL Creatinine 0.81 (0.66-1.25) mg/dL Estimated GFR > 60.0 ML/MIN Glucose 78 (74-106) mg/dL Calcium 8.9 (8.4-10.2) mg/dL Magnesium (1.6-2.3) mg/dL Total Bilirubin 0.90 (0.2-1.3) mg/dL AST 22 (17-59) U/L ALT 17 (0-50) U/L Alkaline Phosphatase 64 (38-126) U/L Troponin I (0.000-0.034) ng/mL Serum Total Protein 6.1 L (6.3-8.2) g/dL Albumin 3.4 L (3.5-5.0) g/dL Urine Color (YELLOW) Urine Appearance (CLEAR) Urine pH (5-6) Ur Specific [place] (1.005-1.025) Urine Protein (Negative) Urine Ketones (NEGATIVE) Urine Blood (0-5) Marquis/ul Urine Nitrite (NEGATIVE) Urine Bilirubin (NEGATIVE) Urine Urobilinogen (0-1) mg/dL Ur Leukocyte Esterase (NEGATIVE) Urine WBC (Auto) (0-5) /HPF Urine RBC (Auto) (0-2) /HPF U Epithel Cells (Auto) (FEW) /HPF Urine Bacteria (Auto) (NEGATIVE) /HPF Urine Mucus (Auto) (NEGATIVE) /HPF Urine Culture Reflexed (NO) Urine Glucose (NEGATIVE) mg/dL - Radiology Exams Ordered Rad Exams-Entire Visit: Radiology Procedures Category Date Time Status CHEST 1 VIEW (PORTABLE) Stat Exams 11/11/19 16:09 Completed HEAD WITHOUT CONTRAST [CT] Stat Exams 11/11/19 16:11 Completed - Procedures and Test Procedures and Tests throughout Hospitalization: Therapy Orders & Screens 11/11/19 21:31 BiPap/CPAP ROUTINE Comment: Diagnosis: near syncope Discharge Exam General Appearance: no apparent distress, alert, thin Neurologic Exam: oriented x 3, cooperative Eye Exam: eyes nml inspection Ears, Nose, Throat Exam: moist mucous membranes Neck Exam: normal inspection Respiratory Exam: normal breath sounds, lungs clear, No crackles/rales, No rhonchi, No wheezing Cardiovascular Exam: regular rate/rhythm, normal heart sounds, No murmur Gastrointestinal/Abdomen Exam: soft, normal bowel sounds, No tenderness Extremity Exam: normal inspection, No swelling, No tenderness Skin Exam: normal color, warm, dry, No rash Final Diagnosis/Problem List - Final Discharge Diagnosis/Problem (1) Near syncope Current Visit: Yes Status: Resolved Assessment & Plan: On telemetry overnight with no arrythmia or pauses. Had a syncopal episode in the past with arrhythmia and now on coumadin. F/u wiht Dr. Salazar. (2) LBBB (left bundle branch block) Current Visit: Yes Status: Acute Assessment & Plan: Unsure if new or old. Will be sending records to Dr. Salazar. Code(s): I44.7 - LEFT BUNDLE-BRANCH BLOCK, UNSPECIFIED - Discharge Disposition: Home, Self-Care Condition: Good Prescriptions: Continue Tamsulosin HCl 0.4 mg [Flomax 0.4 MG] 0.4 mg PO HS Pravastatin Sodium 40 mg PO HS Nitroglycerin 0.4 mg Tablet [Nitrostat 0.4 MG Tablet] 0.4 mg SL UD PRN PRN Reason: Chest Pain Buspirone HCl [Buspar] 15 mg PO BID Warfarin Sodium 7.5 mg PO TUTH@1800 Warfarin Sodium 5 mg PO SUMOWEFRSA@1800 Diltiazem HCl [Diltiazem 24Hr ER] 180 mg PO DAILY Omeprazole 10 mg PO DAILY Instructions: Syncope (Fainting) (DC) Additional Instructions: 's office will be calling back with an appointment for early next week. Follow up with: MAC SALAZAR [COURTESY STAFF] - 12/04/19 3:30 pm MAN PINON [ACTIVE STAFF] - 11/23/19 10:45 am
[2019-11-12] MEDS ORDERED: Coumadin 5 MG PO SCH (18:00)
[2019-11-13] MEDS ORDERED: Coumadin 5 MG PO SCH (18:00)
== END 2019-11-12 14:00 | disposition home or self-care (01) ==
LOC: ED 15:58 → INTOOBSV 19:58 → MED SURG 19:58
PROVIDERS: ADMIT Family Medicine; ATTEND Family Medicine
DX: R42 Dizziness and giddiness (principal); I44.7 Left bundle-branch block, unspecified; I25.10 Atherosclerotic heart disease of native coronary artery without angina pectoris; G47.30 Sleep apnea, unspecified; Z79.01 Long term (current) use of anticoagulants; I25.2 Old myocardial infarction; Z79.899 Other long term (current) drug therapy
CPT/HCPCS: 36000; 36415; 70450; 71045; 80053; 81001; 83735; 84484; 85025; 85610; 85730; 93005; 93041; 93268; 94660; 94760; 94762; 96360; 96361; 99285; G0378; A9270-GY

== ENCOUNTER 2021-08-17 13:32 | Emergency (ER) | payer MEDICARE, OTHER ==
[2021-08-17 13:44] VITALS: O2SAT 98
[2021-08-17] MEDS ORDERED: PROTONIX 40 MG IV IV ONE ×2 (14:09→14:37)
[2021-08-17] MEDS ORDERED: Sodium Chloride 0.9% 1000 ML 1,000 ML IV STA (14:09)
[2021-08-17] MEDS ORDERED: Zofran 4 MG/2 ML VIAL IV ONE (14:09)
--- NOTE | 2021-08-17 14:29 | ERPHSYRPT ---
- History of Present Illness Time Seen by Provider: 08/17/21 13:34 Historian: patient Exam Limitations: no limitations Patient Subjective Stated Complaint: Pt states "I have stomach pain. It started this morning. I took a stool softner at 9 am and drank prune juice." Triage Nursing Assessment: Pt presented alert and oriented X 3, skin pwd Pt amb ulates with an upright steady gait, able to speak in clear full sentences. PT in no apparent respiratory distress Physician History: 71 yo c/o upper abd pain since morning with nausea but no vomiting . questioanle constipation and has taken lasxative with prune juice with no relief. pain is without any significant aggravating/relieving factors . no abd distention. Timing/Duration: today, constant, gradual onset, improved Activities at Onset: rest Quality: aching, cramping, dullness Abdominal Pain Onset Location: RUQ, LUQ, epigastric Pain Radiation: no radiation Severity of Pain-Max: moderate Severity of Pain-Current: moderate Modifying Factors: Improves With: nothing Associated Symptoms: nausea, No diarrhea, No shortness of breath Previous symptoms: no prior history Allergies/Adverse Reactions: acetaminophen [From [place]] Allergy (Verified 11/11/19 16:07) hydrocodone [From [place]] Allergy (Verified 11/11/19 16:07) Home Medications: Buspirone HCl [Buspar] 5 mg PO BID 03/31/15 [History] Nitroglycerin 0.4 mg Tablet [Nitrostat 0.4 MG Tablet] 0.4 mg SL UD PRN 03/31/15 [History] Pravastatin Sodium 40 mg PO HS 03/31/15 [History] Tamsulosin HCl 0.4 mg [Flomax 0.4 MG] 0.4 mg PO HS 03/31/15 [History] Diltiazem HCl [Diltiazem 24Hr ER] 180 mg PO DAILY 06/30/19 [History] Omeprazole 10 mg PO DAILY 06/30/19 [History] Hx Tetanus, Diphtheria Vaccination/Date Given: Yes (2011) Hx Influenza Vaccination/Date Given: Yes Hx Pneumococcal Vaccination/Date Given: Yes Immunizations Up to Date: Yes Travel Risk - International Travel Have you traveled outside of the country in past 3 weeks: No - Coronavirus Screening Are you exhibiting any of the following symptoms?: No Close contact with a COVID-19 positive Pt in past 14-21 Days: No - Vaccine Status Have you recieved a Covid-19 vaccination: Yes 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[employer] - Vaccination Dates Date of 2cond Vaccination (if applicable): 07/2020 - Review of Systems Constitutional: No Symptoms Eyes: No Symptoms Ears, Nose, & Throat: No Symptoms Respiratory: No Symptoms Cardiac: No Symptoms Abdominal/Gastrointestinal: Abdominal Pain, Nausea, Constipation, No Diarrhea Genitourinary Symptoms: No Symptoms Musculoskeletal: No Symptoms Skin: No Symptoms Neurological: No Symptoms Psychological: No Symptoms Endocrine: No Symptoms Hematologic/Lymphatic: No Symptoms Immunological/Allergic: No Symptoms - Past Medical History Pertinent Past Medical History: Yes Neurological History: Migraines ENT History: No Pertinent History Cardiac History: Coronary Artery Disease, Myocardial Infarction ([place]) Respiratory History: Sleep Apnea Endocrine Medical History: No Pertinent History Musculoskeletal History: No Pertinent History GI Medical History: GERD History: No Pertinent History Psycho-Social History: Anxiety Male Reproductive Disorders: Other Other Medical History: [place] 2006, GALLBLADDER REMOVED 25+ YEARS AGO - Past Surgical History Past Surgical History: Yes Neuro Surgical History: No Pertinent History Cardiac: Cardiac Catheterization, Cardiac Stent Respiratory: No Pertinent History Gastrointestinal: Cholecystectomy Genitourinary: No Pertinent History Musculoskeletal: No Pertinent History, Orthopedic Surgery Male Surgical History: No Pertinent History Other Surgical History: 2006 heart attack with stent placed, shoulder surgery may 2019 - Social History Smoking Status: Never smoker Exposure to second hand smoke: No Drug Use: none Patient Lives Alone: No - Nursing Vital Signs Nursing Vital Signs: Initial Vital Signs Temperature 96.5 F 08/17/21 13:37 Pulse Rate 66 08/17/21 13:37 Respiratory Rate 20 08/17/21 13:37 Blood Pressure 168/80 08/17/21 13:37 O2 Sat by Pulse Oximetry 98 08/17/21 13:37 Pain Scale Pain Intensity 2 - Physical Exam General Appearance: no apparent distress, alert Eye Exam: PERRL/EOMI, eyes nml inspection Ears, Nose, Throat Exam: normal ENT inspection, pharynx normal Neck Exam: normal inspection, non-tender, supple, full range of motion Respiratory Exam: normal breath sounds, lungs clear Cardiovascular Exam: regular rate/rhythm, normal heart sounds Gastrointestinal/Abdomen Exam: soft, normal bowel sounds, tenderness (upper abd , negative duff sign) Back Exam: normal inspection, normal range of motion Extremity Exam: normal inspection, normal range of motion Neurologic Exam: alert, oriented x 3, cooperative Skin Exam: normal color SpO2 Interpretation: normal SpO2: 98 O2 Delivery: Room Air Ordered Tests: Active Orders 24 hr Category Date Time Status IV Insertion STAT Care 08/17/21 14:09 Completed NPO (ED) STAT Care 08/17/21 14:09 Completed ABDOMEN AND PELVIS W CONTRAST [CT] Stat Exams 08/17/21 14:10 Completed CBC W DIFF Stat Lab 08/17/21 14:20 Completed CMP Stat Lab 08/17/21 14:20 Completed LIPASE Stat Lab 08/17/21 14:20 Completed PROTIME WITH INR Stat Lab 08/17/21 14:20 Completed TROPONIN Q3H Lab 08/17/21 14:20 Completed TROPONIN Q3H Lab 08/17/21 17:15 Ordered TROPONIN Q3H Lab 08/17/21 20:15 Ordered TROPONIN Q3H Lab 08/17/21 23:15 Ordered Medication Summary Discontinued Medications Generic Name Dose Route Start Last Admin Trade Name Moisesq PRN Reason Stop Dose Admin Sodium Chloride 1,000 mls @ 999 mls/hr 08/17/21 14:09 08/17/21 15:40 Sodium Chloride 0.9% 1000 Ml IV 08/17/21 15:09 Infused .Q1H1M STA Infusion Sodium Chloride Confirm 08/17/21 14:37 Sodium Chloride 0.9% 1000 Ml Administered 08/17/21 14:38 Dose 1,000 mls @ ud .ROUTE .STK-MED ONE Ondansetron HCl 4 mg 08/17/21 14:09 08/17/21 14:37 Ondansetron Hcl 4 Mg/2 Ml Vial IV 08/17/21 14:10 4 mg STAT ONE Administration Ondansetron HCl Confirm 08/17/21 14:37 Ondansetron Hcl 4 Mg/2 Ml Vial Administered 08/17/21 14:38 Dose 4 mg .ROUTE .STK-MED ONE Pantoprazole Sodium 40 mg 08/17/21 14:09 08/17/21 14:38 Pantoprazole 40 Mg Vial IV 08/17/21 14:10 40 mg STAT ONE Administration Pantoprazole Sodium Confirm 08/17/21 14:37 Pantoprazole 40 Mg Vial Administered 08/17/21 14:38 Dose 40 mg IV .STK-MED ONE Lab/Rad Data: Laboratory Result Diagrams 08/17/21 14:20 08/17/21 14:20 Laboratory Results 08/17/21 08/17/21 08/17/21 Range/Units 16:35 14:20 14:20 WBC (4.0-10.5) K/mm3 RBC (4.1-5.6) M/mm3 Hgb (12.5-18.0) gm/dl Hct (42-50) % MCV (78-100) fl MCH (26-32) pg MCHC (32-36) g/dl RDW (11.5-14.0) % Plt Count (150-450) K/mm3 MPV (7.5-11.0) fl Gran % (36.0-66.0) % Eos # (Auto) (0-0.5) Absolute Lymphs (auto) (1.0-4.6) Absolute Monos (auto) (0.0-1.3) Lymphocytes % (24.0-44.0) % Monocytes % (0.0-12.0) % Eosinophils % (0.00-5.0) % Basophils % (0.0-0.4) % Absolute Granulocytes (1.4-6.9) Basophils # (0-0.4) PT 21.5 H (9.4-12.5) SECONDS INR 1.82 (0.8-3.0) Sodium (137-145) mmol/L Potassium (3.5-5.1) mmol/L Chloride (98-107) mmol/L Carbon Dioxide (22-30) mmol/L Anion Gap (5-15) MEQ/L BUN (9-20) mg/dL Creatinine (0.66-1.25) mg/dL Estimated GFR ML/MIN Glucose (74-106) mg/dL Calcium (8.4-10.2) mg/dL Total Bilirubin (0.2-1.3) mg/dL AST (17-59) U/L ALT (0-50) U/L Alkaline Phosphatase (38-126) U/L Troponin I < 0.012 (0.000-0.034) ng/mL Serum Total Protein (6.3-8.2) g/dL Albumin (3.5-5.0) g/dL Lipase (23-300) U/L Urinalys Dipstick Clnc MAIN LAB Urine Color YELLOW (YELLOW) Urine Appearance CLEAR (CLEAR) Urine pH 7.5 (5-6) Ur Specific [place] 1.015 (1.005-1.025) POC Urine Protein Conf NEGATIVE (Negative) Urine Ketones MODERATE-40 (NEGATIVE) Urine Nitrite NEGATIVE (NEGATIVE) Urine Bilirubin NEGATIVE (NEGATIVE) Urine Urobilinogen 0.2 (0-1) mg/dL Urine Leukocytes NEGATIVE (NEGATIVE) Urine WBC (Auto) NONE (0-5) /HPF Urine RBC (Auto) NONE (0-2) /HPF U Epithel Cells (Auto) NONE (FEW) /HPF Urine Bacteria (Auto) NONE (NEGATIVE) /HPF Urine RBC NEGATIVE (0-5) Marquis/ul Urine Mucus (Auto) SLIGHT (NEGATIVE) /HPF Ur Culture Indicated? NO Urine Glucose NEGATIVE (NEGATIVE) mg/dL 08/17/21 08/17/21 Range/Units 14:20 14:20 WBC 12.4 H (4.0-10.5) K/mm3 RBC 4.81 (4.1-5.6) M/mm3 Hgb 15.6 (12.5-18.0) gm/dl Hct 46.6 (42-50) % MCV 96.9 (78-100) fl MCH 32.4 H (26-32) pg MCHC 33.5 (32-36) g/dl RDW 13.6 (11.5-14.0) % Plt Count 212 (150-450) K/mm3 MPV 12.1 H (7.5-11.0) fl Gran % 78.8 H (36.0-66.0) % Eos # (Auto) 0.17 (0-0.5) Absolute Lymphs (auto) 1.60 (1.0-4.6) Absolute Monos (auto) 0.82 (0.0-1.3) Lymphocytes % 12.9 L (24.0-44.0) % Monocytes % 6.6 (0.0-12.0) % Eosinophils % 1.4 (0.00-5.0) % Basophils % 0.3 (0.0-0.4) % Absolute Granulocytes 9.73 H (1.4-6.9) Basophils # 0.04 (0-0.4) PT (9.4-12.5) SECONDS INR (0.8-3.0) Sodium 139 (137-145) mmol/L Potassium 4.1 (3.5-5.1) mmol/L Chloride 99 (98-107) mmol/L Carbon Dioxide 31 H (22-30) mmol/L Anion Gap 14.0 (5-15) MEQ/L BUN 23 H (9-20) mg/dL Creatinine 0.90 (0.66-1.25) mg/dL Estimated GFR > 60.0 ML/MIN Glucose 103 (74-106) mg/dL Calcium 10.0 (8.4-10.2) mg/dL Total Bilirubin 1.20 (0.2-1.3) mg/dL AST 32 (17-59) U/L ALT 25 (0-50) U/L Alkaline Phosphatase 94 (38-126) U/L Troponin I (0.000-0.034) ng/mL Serum Total Protein 7.5 (6.3-8.2) g/dL Albumin 4.6 (3.5-5.0) g/dL Lipase 106 (23-300) U/L Urinalys Dipstick Clnc Urine Color (YELLOW) Urine Appearance (CLEAR) Urine pH (5-6) Ur Specific [place] (1.005-1.025) POC Urine Protein Conf (Negative) Urine Ketones (NEGATIVE) Urine Nitrite (NEGATIVE) Urine Bilirubin (NEGATIVE) Urine Urobilinogen (0-1) mg/dL Urine Leukocytes (NEGATIVE) Urine WBC (Auto) (0-5) /HPF Urine RBC (Auto) (0-2) /HPF U Epithel Cells (Auto) (FEW) /HPF Urine Bacteria (Auto) (NEGATIVE) /HPF Urine RBC (0-5) Marquis/ul Urine Mucus (Auto) (NEGATIVE) /HPF Ur Culture Indicated? Urine Glucose (NEGATIVE) mg/dL - Progress Progress: improved, re-examined Progress Note: 08/17/21 16:51 Given fluids with protonix , refused painmeds and is feeling better , has mildly hyperactive bowel sounds but no peritoneal signs. wbc 12 and grossly unremarkable chemistries. CT showed findings consistent with GE vs ileus VS partial SBO with diffuse constipation. dont think is SBO , and is more of constpation with some element of GE . recommended miralax and outpatient follow up. discussed sx/sn of worsening needing return which he seems understanding Counseled pt/family regarding: lab results, diagnosis, need for follow-up, rad results - Departure Departure Disposition: Home Clinical Impression: Upper abdominal pain, Constipation Condition: Stable Critical Care Time: No Referrals: MAN GUADARRAMA [Primary Care Provider] - Follow up/PCP as directed (1-2 days for re evaluation) Instructions: Acute Abdomen (Belly Pain), Adult (DC) Additional Instructions: drink plenty of fluids , take miralax regularly , return to ER FOR WORSENING PAIN , OR IF DEVELOP INTRACTABLE VOMITING/FEVER ETC. Prescriptions: Polyethylene Glycol 3350 [Miralax] 17 gm PO DAILY 10 Days #1 unit Polyethylene Glycol 3350 17 gm [Miralax Powder 17GM PACKET] 17 gm PO DAILY #30 packet Ondansetron ODT 4 MG [Zofran Odt 4 mg] 1 ea PO QIDPRN PRN #5 tablet PRN Reason: n/v
[2021-08-17] MEDS ORDERED: Zofran 4 MG/2 ML VIAL ONE (14:37)
[2021-08-17] MEDS ORDERED: Sodium Chloride 0.9% 1000 ML 1,000 ML ONE (14:37)
[2021-08-17 14:40] LABS: Absolute Neutrophil Ct (ANC) 9.73 (1.4-6.9); Basophil (Absolute #) 0.04 (0-0.4); Eosinophil % 1.4 % (0.00-5.0); Eosinophil (Absolute #) 0.17 (0-0.5); Hematocrit 46.6 % (42-50); Hemoglobin 15.6 gm/dl (12.5-18.0); INR 1.82 (0.8-3.0); Lymphocytes % 12.9 % (24.0-44.0); Mean Cell Volume 96.9 fl (78-100); Mean Corpuscular Hemoglobin 32.4 pg (26-32); Mean Corpuscular Hgb Concent. 33.5 g/dl (32-36); Mean Platelet Volume 12.1 fl (7.5-11.0); Monocyte (Absolute #) 0.82 (0.0-1.3); Monocytes % 6.6 % (0.0-12.0); Neutrophil % 78.8 % (36.0-66.0); PROTIME 21.5 SECONDS (9.4-12.5); Platelet Count 212 K/mm3 (150-450); Red Blood Count 4.81 M/mm3 (4.1-5.6); Red Cell Distribution Width 13.6 % (11.5-14.0); White Blood Count 12.4 K/mm3 (4.0-10.5)
[2021-08-17 14:45] LABS: ALBUMIN 4.6 g/dL (3.5-5.0); ALKALINE PHOSPHATASE 94 U/L (38-126); BLOOD UREA NITROGEN 23 mg/dL (9-20); CHLORIDE 99 mmol/L (98-107); Carbon Dioxide 31 mmol/L (22-30); EST GLOMERULAR FILTRATION RATE > 60.0 ML/MIN; Glucose 103 mg/dL (74-106); LIPASE 106 U/L (23-300); Potassium 4.1 mmol/L (3.5-5.1); SGOT/AST 32 U/L (17-59); SGPT/ALT 25 U/L (0-50); SODIUM 139 mmol/L (137-145); Total Protein 7.5 g/dL (6.3-8.2)
--- NOTE | 2021-08-17 16:29 | XRAY ---
Indication: Right upper quadrant pain. Nausea and constipation. Multiple contiguous axial images obtained through the abdomen and pelvis using 80 cc Isovue 370 contrast. Comparison: None Lung bases demonstrates mild dependent atelectasis. Heart not enlarged. Stomach is moderately fluid distended. Duodenal and jejunal bowel loops are also fluid distended uniformly up to 3.5 cm diameter with synchronous fluid leveling. Ileal bowel loops are more normal in caliber and there is normal bowel gas throughout the colon. Findings either ileus versus gastroenteritis versus partial distal small bowel obstruction. No free fluid/air. Normal appendix. Remaining colon demonstrates mild diffuse scattered fecal debris and diverticulosis. Right kidney demonstrates 4.3 cm cyst. Previous cholecystectomy. Remaining liver, pancreas, spleen, adrenal glands, kidneys, ureters, and bladder are unremarkable. Mild scattered aortoiliac calcifications. No AAA or pathologic retroperitoneal lymphadenopathy. Osseous structures demonstrates mild degenerative spondylosis throughout the thoracolumbar spine. Also bilateral L5 spondylolysis with 9 mm spondylolisthesis. Impression: 1. Abnormal fluid distended stomach and proximal small bowel loops, ileus versus gastroenteritis. Partial distal small bowel obstruction not completely excluded. 2. Mild diffuse fecal stasis and diffuse colonic diverticulosis. 3. Incidental right renal cyst, arteriosclerotic disease, mild multilevel degenerative spondylosis, and L5 spondylolysis with grade 1-2 spondylolisthesis.
[2021-08-17 16:51] LABS: Appearance CLEAR (CLEAR); Bilirubin NEGATIVE (NEGATIVE); Dipstick done @ ? MAIN LAB; Glucose NEGATIVE (NEGATIVE); Ketones MODERATE-40 (NEGATIVE); Nitrite NEGATIVE (NEGATIVE); Ph 7.5 (5-6); Protein,Urine Dip NEGATIVE (Negative); RBC NEGATIVE Ery/ul (0-5); Specific Gravity 1.015 (1.005-1.025); Urobilinogen 0.2 mg/dL (0-1)
[2021-08-17 16:56] VITALS: BP 147/85; PULSE 78
[2021-08-17 16:59] LABS: Mucus SLIGHT /HPF (NEGATIVE); Urine Cultured Indicated? NO
== END 2021-08-17 17:11 | disposition home or self-care (01) ==
LOC: ED 13:32
DX: K59.00 Constipation, unspecified (principal); R10.10 Upper abdominal pain, unspecified; R11.0 Nausea; K21.9 Gastro-esophageal reflux disease without esophagitis; Z79.899 Other long term (current) drug therapy
CPT/HCPCS: 36000; 36415; 74177; 80053; 81015; 83690; 84484; 85025; 85610; 96360; 96374; 96375; 99284; J2405

== ENCOUNTER 2021-09-23 10:01 | Emergency (ER) | payer MEDICARE, OTHER ==
[2021-09-23 10:27] VITALS: O2SAT 97
[2021-09-23] MEDS ORDERED: Tylenol #3 Tablet PO ONE (10:27)
[2021-09-23] MEDS ORDERED: Tylenol #3 Tablet ONE (10:31)
--- NOTE | 2021-09-23 11:16 | ERPHSYRPT ---
- History of Present Illness Time Seen by Provider: 09/23/21 10:02 Source: patient Exam Limitations: no limitations Patient Subjective Stated Complaint: pt co right knee pain after last night, he states is was raining and unsre of how he hurt knee Triage Nursing Assessment: pt alert, resp easy, skin w/d/p. 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 No swelling. No direct trauma to the knee. Method of Injury: unknown Occurred: yesterday Quality: sharpness Severity of Pain-Max: moderate Severity of Pain-Current: moderate Lower Extremities Pain: knee: right Modifying Factors: Improves With: immobilization. Worsens With: movement Associated Symptoms: unable to bear weight Allergies/Adverse Reactions: hydrocodone [From [place]] Allergy (Verified 09/23/21 10:27) Home Medications: Buspirone HCl [Buspar] 5 mg PO BID 03/31/15 [History] Nitroglycerin 0.4 mg Tablet [Nitrostat 0.4 MG Tablet] 0.4 mg SL UD PRN 03/31/15 [History] Pravastatin Sodium 40 mg PO HS 03/31/15 [History] Tamsulosin HCl 0.4 mg [Flomax 0.4 MG] 0.4 mg PO HS 03/31/15 [History] Diltiazem HCl [Diltiazem 24Hr ER] 180 mg PO DAILY 06/30/19 [History] Omeprazole 10 mg PO DAILY 06/30/19 [History] lisinopriL [Lisinopril] 2.5 mg PO DAILY 09/23/21 [History] Hx Tetanus, Diphtheria Vaccination/Date Given: Yes (2011) Hx Influenza Vaccination/Date Given: Yes Hx Pneumococcal Vaccination/Date Given: Yes Immunizations Up to Date: Yes Travel Risk - International Travel Have you traveled outside of the country in past 3 weeks: No - Coronavirus Screening Are you exhibiting any of the following symptoms?: No - Vaccine Status Have you recieved a Covid-19 vaccination: Yes 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[employer] - Vaccination Dates Date of 2cond Vaccination (if applicable): 07/2020 - Review of Systems Constitutional: No Symptoms Eyes: No Symptoms Ears, Nose, & Throat: No Symptoms Respiratory: No Symptoms Cardiac: No Symptoms Abdominal/Gastrointestinal: No Symptoms Genitourinary Symptoms: No Symptoms Musculoskeletal: Joint Pain Skin: No Symptoms Neurological: No Symptoms Psychological: No Symptoms Endocrine: No Symptoms - Past Medical History Pertinent Past Medical History: Yes Neurological History: Migraines ENT History: No Pertinent History Cardiac History: Coronary Artery Disease, Myocardial Infarction ([place]) Respiratory History: Sleep Apnea Endocrine Medical History: No Pertinent History Musculoskeletal History: No Pertinent History GI Medical History: GERD History: No Pertinent History Psycho-Social History: Anxiety Male Reproductive Disorders: Other Other Medical History: [place] 2006, GALLBLADDER REMOVED 25+ YEARS AGO - Past Surgical History Past Surgical History: Yes Neuro Surgical History: No Pertinent History Cardiac: Cardiac Catheterization, Cardiac Stent Respiratory: No Pertinent History Gastrointestinal: Cholecystectomy Genitourinary: No Pertinent History Musculoskeletal: No Pertinent History, Orthopedic Surgery Male Surgical History: No Pertinent History Other Surgical History: 2006 heart attack with stent placed, shoulder surgery may 2019 - Social History Smoking Status: Never smoker Exposure to second hand smoke: No Drug Use: none Patient Lives Alone: No - Nursing Vital Signs Nursing Vital Signs: Initial Vital Signs Temperature 98.0 F 09/23/21 10:23 Pulse Rate 65 09/23/21 10:23 Respiratory Rate 18 09/23/21 10:23 Blood Pressure 125/73 09/23/21 10:23 O2 Sat by Pulse Oximetry 97 09/23/21 10:23 Pain Scale Pain Intensity 0 - Physical Exam General Appearance: no apparent distress, alert Eyes, Ears, Nose, Throat Exam: normal ENT inspection Neck Exam: normal inspection, non-tender, supple, full range of motion Cardiovascular/Respiratory Exam: normal breath sounds, regular rate/rhythm Back Exam: normal inspection, normal range of motion Legs Exam: bilateral leg: non-tender, normal inspection, normal range of motion, no evidence of injury Knees Exam: right knee: bone tenderness (Medial aspect of knee), pain, soft tissue tenderness, left knee: non-tender, normal range of motion, bilateral knee: normal inspection, no evidence of injury Neuro/Tendon Exam: normal sensation, normal motor functions Mental Status Exam: alert, oriented x 3, cooperative Skin Exam: normal color SpO2 Interpretation: normal SpO2: 97 O2 Delivery: Room Air Ordered Tests: Active Orders 24 hr Category Date Time Status KNEE (3 VIEWS) Stat Exams 09/23/21 11:23 Completed Medication Summary Discontinued Medications Generic Name Dose Route Start Last Admin Trade Name Freq PRN Reason Stop Dose Admin Acetaminophen/Codeine Phosphate 1 tab 09/23/21 10:27 09/23/21 10:34 Codeine Phosphate/Apap #3 PO 09/23/21 10:28 1 tab STAT ONE Administration Acetaminophen/Codeine Phosphate Confirm 09/23/21 10:31 Codeine Phosphate/Apap #3 Administered 09/23/21 10:32 Dose 1 tab .ROUTE .STK-MED ONE - Progress Progress: improved, pain not gone completely, re-examined Progress Note: 09/23/21 11:13 I have obtained x-rays which is negative, probably ligamentous strain, David wrap applied, recommended walker for ambulation and outpatient follow-up. Discussed signs symptoms of worsening needing return to ER which he seems understanding. Counseled pt/family regarding: diagnosis, need for follow-up, rad results - Departure Departure Disposition: Home Clinical Impression: Sprain, knee Condition: Stable Critical Care Time: No Referrals: MAN GUADARRAMA [Primary Care Provider] - Follow up/PCP as directed [facility] - LOPEZ LEYVA NP [NON-STAFF PHY W/O PRIVILEGES] - Follow up/PCP as directed (In 3 days for reevaluation) Instructions: Knee Sprain (DC) Additional Instructions: Pain medications as needed. Weightbearing only as tolerated. Use walker for ambulation. Return to ER for increasing pain swelling, difficulty movements etc. Follow-up with orthopedic surgery for reevaluation. Prescriptions: Codeine Phosphate/APAP #3 [Tylenol #3 Tablet] 1 tab PO Q4-6HPRN PRN 3 Days #12 tablet PRN Reason: Pain
[2021-09-23 11:17] VITALS: BP 122/84; PULSE 78
--- NOTE | 2021-09-23 20:12 | XRAY ---
Indication: Pain. No known injury. Comparison: None 3 view right knee demonstrates minimal medial joint space narrowing, small spurring patella/tibial tuberosity, and minimal vascular calcifications. No other bony, articular, or soft tissue abnormalities.
== END 2021-09-23 11:45 | disposition home or self-care (01) ==
LOC: ED 10:01
DX: S83.91XA Sprain of unspecified site of right knee, initial encounter (principal); Y93.01 Activity, walking, marching and hiking; Y92.481 Parking lot as the place of occurrence of the external cause; Z79.899 Other long term (current) drug therapy; Z79.891 Long term (current) use of opiate analgesic
CPT/HCPCS: 73562; 99284; A9270-GY

== ENCOUNTER 2023-07-24 21:55 | Emergency (ER) | payer MEDICARE, OTHER ==
[2023-07-24 22:30] VITALS: TEMP 99.1
[2023-07-24 23:17] LABS: Absolute Neutrophil Ct (ANC) 8.06 x10^3/uL (1.4-6.9); BASOPHIL % 0.5 % (0.0-0.4); Basophil (Absolute #) 0.05 x10^3/uL (0-0.4); Eosinophil % 0.5 % (0.00-5.0); Eosinophil (Absolute #) 0.05 x10^3/uL (0-0.5); Hematocrit 46.9 % (42-50); Hemoglobin 15.7 g/dL (12.5-18.0); IMMATURE GRAN # 0.04 x10^3u/L (0.00-0.03); IMMATURE GRAN % 0.4 % (0.00-0.4); Lymphocyte (Absolute #) 0.42 x10^3/uL (1.0-4.6); Lymphocytes % 4.4 % (24.0-44.0); Mean Cell Volume 97.3 fL (78-100); Mean Corpuscular Hemoglobin 32.6 pg (26-32); Mean Corpuscular Hgb Concent. 33.5 g/dL (32-36); Mean Platelet Volume 10.8 fL (7.5-11.0); Monocyte (Absolute #) 0.86 x10^3/uL (0.0-1.3); Monocytes % 9.1 % (0.0-12.0); Neutrophil % 85.1 % (36.0-66.0); Platelet Count 201 x10^3/uL (150-450); Red Blood Count 4.82 x10^6/uL (4.1-5.6); Red Cell Distribution Width 13.2 % (11.5-14.0); White Blood Count 9.5 x10^3/uL (4.0-10.5)
[2023-07-24] MEDS ORDERED: Zofran 4 MG/2 ML VIAL ONE (23:17)
[2023-07-24] MEDS ORDERED: Lactated Ringers 1,000 ML IV ONE (23:17)
[2023-07-24] MEDS: Lactated Ringers 1,000 ML IV ONE (23:21)
[2023-07-24] MEDS: Zofran 4 MG/2 ML VIAL IV ONE (23:21)
[2023-07-24 23:26] LABS: ALBUMIN 4.1 g/dL (3.5-5.0); ANION GAP 12.3 MEQ/L (5-15); BILIRUBIN,TOTAL 1.5 mg/dL (0.2-1.3); Calcium 9.2 mg/dL (8.4-10.2); Creatinine 1 1.03 mg/dL (0.66-1.25); EST GLOMERULAR FILTRATION RATE 76.2 ML/MIN; Potassium 4.1 mmol/L (3.5-5.1); Total Protein 7.3 g/dL (6.3-8.2)
[2023-07-24 23:38] LABS: INFLUENZA A NEGATIVE (NEGATIVE); INFLUENZA B NEGATIVE (NEGATIVE); RESPIRATORY SYNCTIAL VIRUS NEGATIVE (NEGATIVE); SARS-CoV-2 Xpert Express NEGATIVE (NEGATIVE)
--- NOTE | 2023-07-24 23:46 | ERPHSYRPT ---
- History of Present Illness Time Seen by Provider: 07/24/23 22:35 Source: patient Exam Limitations: no limitations Patient Subjective Stated Complaint: vomiting and diarrhea today Triage Nursing Assessment: Pt ambulated into ER without diff, daughter at bedside. Pt c/o diarrhea x3 times today that started at 0430 and ended by noon, pt did take imodium for it. Pt vomited x6 times today which started around noon. Abd soft with active bs x4 quad, tender on palpation, pt states, "I feel like my abd is tender from vomiting". Physician History: Patient is a 73-year-old male presents to our ED for evaluation of diarrhea x 3 days as well as nausea and vomiting. Patient took Imodium and diarrhea has since resolved. Patient vomited 6 times and reports that the vomiting is making his abdomen sore. No fever no trauma no rash no headache no chest pain or shortness of breath. Symptoms are mild to moderate in intensity. No specific worsening or improving factors. Patient voices no other complaints or concerns at this time. Portions of this note were created with voice recognition technology. There may be grammatical, spelling, punctuation or sound alike errors Timing/Duration: day(s) (3 days) Severity: moderate Modifying Factors: Improves With: nothing Associated Symptoms: denies symptoms Allergies/Adverse Reactions: hydrocodone [From [place]] Allergy (Verified 07/24/23 22:41) Vomiting Home Medications: Buspirone HCl [Buspar] 5 mg PO BID 03/31/15 [History] Nitroglycerin 0.4 mg Tablet [Nitrostat 0.4 MG Tablet] 0.4 mg SL UD PRN 03/31/15 [History] Tamsulosin HCl 0.4 mg [Flomax 0.4 MG] 0.4 mg PO HS 03/31/15 [History] Omeprazole 10 mg PO DAILY 06/30/19 [History] dilTIAZem HCL [Diltiazem 24Hr ER] 180 mg PO DAILY 06/30/19 [History] lisinopriL [Lisinopril] 2.5 mg PO DAILY 09/23/21 [History] Warfarin Sodium 5 mg PO MOWEFR 10/05/21 [History] buPROPion HCL [Wellbutrin Xl] 300 mg PO DAILY 10/05/21 [History] Ascorbate Calcium [Vitamin C] 500 mg PO DAILY 05/31/22 [History] Cholecalciferol (Vitamin D3) [Vitamin D3] 2,000 unit PO DAILY 05/31/22 [History] Loratadine 10 mg [Claritin 10 mg] 10 mg PO DAILY 05/31/22 [History] Zinc Gluconate [Zinc] 50 mg PO DAILY 05/31/22 [History] Albuterol Common Canister [Ventolin Common Canister] 2 puff IH Q4-6HPRN PRN 07/17/23 [History] Atorvastatin Calcium 40 mg PO HS 07/24/23 [History] Multivitamin 1 each PO DAILY 07/24/23 [History] Hx Tetanus, Diphtheria Vaccination/Date Given: Yes Hx Influenza Vaccination/Date Given: Yes Hx Pneumococcal Vaccination/Date Given: Yes Immunizations Up to Date: Yes Travel Risk - International Travel Have you traveled outside of the country in past 3 weeks: No - Emerging Infectious Disease Are you exhibiting symptoms associated with any current EIDs: Yes Symptoms: Abdominal Pain, Diarrhea, Headaches/Body Aches/, Vomitting - Review of Systems Constitutional: No Symptoms, No Fever, No Chills Eyes: No Symptoms Ears, Nose, & Throat: No Symptoms Respiratory: No Symptoms, No Cough, No Dyspnea Cardiac: No Symptoms, No Chest Pain, No Edema, No Syncope Abdominal/Gastrointestinal: No Symptoms, No Abdominal Pain, No Nausea, No Vomiting, No Diarrhea Genitourinary Symptoms: No Symptoms, No Dysuria Musculoskeletal: No Symptoms, No Back Pain, No Neck Pain Skin: No Symptoms, No Rash Neurological: No Symptoms, No Dizziness, No Focal Weakness, No Sensory Changes Psychological: No Symptoms Endocrine: No Symptoms Hematologic/Lymphatic: No Symptoms Immunological/Allergic: No Symptoms All Other Systems: Reviewed and Negative - Past Medical History Pertinent Past Medical History: Yes Neurological History: Migraines ENT History: No Pertinent History Cardiac History: Coronary Artery Disease, Myocardial Infarction (ND) Respiratory History: Sleep Apnea Endocrine Medical History: No Pertinent History Musculoskeletal History: No Pertinent History GI Medical History: GERD, Gallbladder Disease History: No Pertinent History Psycho-Social History: Anxiety Male Reproductive Disorders: Other Other Medical History: ND 2006, GALLBLADDER REMOVED 25+ YEARS AGO - Past Surgical History Past Surgical History: Yes Neuro Surgical History: No Pertinent History Cardiac: Cardiac Catheterization, Cardiac Stent Respiratory: No Pertinent History Gastrointestinal: Cholecystectomy Genitourinary: No Pertinent History Musculoskeletal: No Pertinent History, Orthopedic Surgery Male Surgical History: No Pertinent History Other Surgical History: 2006 heart attack with stent placed, shoulder surgery may 2019 - Social History Smoking Status: Never smoker Exposure to second hand smoke: No Drug Use: none Patient Lives Alone: No - Nursing Vital Signs Nursing Vital Signs: Initial Vital Signs Temperature 99.1 F 07/24/23 22:28 Pulse Rate 95 H 07/24/23 22:28 Respiratory Rate 18 07/24/23 22:28 Blood Pressure 125/67 07/24/23 22:28 O2 Sat by Pulse Oximetry 97 07/24/23 22:28 Pain Scale Pain Intensity 0 - Physical Exam General Appearance: no apparent distress, alert Eye Exam: PERRL/EOMI, eyes nml inspection Ears, Nose, Throat Exam: normal ENT inspection, TMs normal, pharynx normal, moist mucous membranes, other (Dry appearing oral mucous membranes) Neck Exam: normal inspection, non-tender, supple, full range of motion Respiratory Exam: normal breath sounds, lungs clear, airway intact, No respiratory distress Cardiovascular Exam: regular rate/rhythm, normal heart sounds, normal peripheral pulses Gastrointestinal/Abdomen Exam: soft, normal bowel sounds, other (Mild diffuse abdominal tenderness), No tenderness, No mass Back Exam: normal inspection, normal range of motion, No CVA tenderness, No vertebral tenderness Extremity Exam: normal inspection, normal range of motion, pelvis stable Neurologic Exam: alert, oriented x 3, cooperative, normal mood/affect, sensation nml, No motor deficits Skin Exam: normal color, warm, dry, No rash Lymphatic Exam: No adenopathy SpO2 Interpretation: normal SpO2: 96 O2 Delivery: Room Air - Course Nursing assessment & vital signs reviewed: Yes EKG Interpreted by Me: RATE (87), Sinus Rhythm, NORMAL AXIS, Left Bundle Branch Block - CT Exams Abdomen/Pelvis CT Interpretation: Tele-radiologist Report (Diverticulosis, mild acute diverticulitis, hiatal hernia, appendicolith, right renal exophytic cyst Bosniak type I and a bilateral L5 pars interarticularis fracture grade I anterolisthe sis. Enlarged prostate. Radiologist reports that the pars interarticularis fracture is chronic/old) Ordered Tests: Active Orders 24 hr Category Date Time Status EKG-ER Only STAT Care 07/24/23 22:41 Active IV Insertion STAT Care 07/24/23 22:41 Active ABDOMEN AND PELVIS W/0 CONTRAS [CT] Stat Exams 07/24/23 22:42 Completed CBC W DIFF Stat Lab 07/24/23 23:14 Completed CMP Stat Lab 07/24/23 23:14 Completed LIPASE Stat Lab 07/24/23 23:14 Completed TROPONIN Q4H Lab 07/24/23 23:14 Completed TROPONIN Q4H Lab 07/25/23 02:45 Ordered TROPONIN Q4H Lab 07/25/23 06:45 Ordered UA W/RFX UR CULTURE Stat Lab 07/24/23 01:21 Completed Medication Summary Generic Name Dose Route Start Last Admin Trade Name Freq PRN Reason Stop Dose Admin Lactated Ringer's 1,000 mls @ 999 mls/hr 07/25/23 01:00 07/25/23 00:33 Lactated Ringers IV 08/24/23 00:59 999 mls/hr .Q1H1M PETRA Administration Discontinued Medications Generic Name Dose Route Start Last Admin Trade Name Freq PRN Reason Stop Dose Admin Lactated Ringer's 1,000 mls @ 999 mls/hr 07/24/23 22:58 07/24/23 23:21 Lactated Ringers IV 07/24/23 23:58 999 mls/hr .Q1H1M ONE Administration Lactated Ringer's Confirm 07/24/23 23:17 Lactated Ringers Administered 07/24/23 23:18 Dose 1,000 mls @ ud IV .STK-MED ONE Ondansetron HCl 4 mg 07/24/23 22:43 07/24/23 23:21 Ondansetron Hcl 4 Mg/2 Ml Vial IV 07/24/23 22:44 4 mg STAT ONE Administration Ondansetron HCl Confirm 07/24/23 23:17 Ondansetron Hcl 4 Mg/2 Ml Vial Administered 07/24/23 23:18 Dose 4 mg .ROUTE .STK-MED ONE Lab/Rad Data: Laboratory Result Diagrams 07/24/23 23:14 07/24/23 23:14 Laboratory Results 07/24/23 07/24/23 07/24/23 Range/Units 23:14 23:14 23:14 WBC 9.5 (4.0-10.5) x10^3/uL RBC 4.82 (4.1-5.6) x10^6/uL Hgb 15.7 (12.5-18.0) g/dL Hct 46.9 (42-50) % MCV 97.3 (78-100) fL MCH 32.6 H (26-32) pg MCHC 33.5 (32-36) g/dL RDW 13.2 (11.5-14.0) % Plt Count 201 (150-450) x10^3/uL MPV 10.8 (7.5-11.0) fL Gran % 85.1 H (36.0-66.0) % Immature Gran % (Auto) 0.4 (0.00-0.4) % Nucleat RBC Rel Count 0.0 (0.00-0.1) % Eos # (Auto) 0.05 (0-0.5) x10^3/uL Immature Gran # (Auto) 0.04 H (0.00-0.03) x10^3u/L Absolute Lymphs (auto) 0.42 L (1.0-4.6) x10^3/uL Absolute Monos (auto) 0.86 (0.0-1.3) x10^3/uL Absolute Nucleated RBC 0.00 (0.00-0.01) x10^3u/L Lymphocytes % 4.4 L (24.0-44.0) % Monocytes % 9.1 (0.0-12.0) % Eosinophils % 0.5 (0.00-5.0) % Basophils % 0.5 (0.0-0.4) % Absolute Granulocytes 8.06 H (1.4-6.9) x10^3/uL Basophils # 0.05 (0-0.4) x10^3/uL Sodium 140 (135-145) mmol/L Potassium 4.1 (3.5-5.1) mmol/L Chloride 103 (98-107) mmol/L Carbon Dioxide 29 (22-30) mmol/L Anion Gap 12.3 (5-15) MEQ/L BUN 27 H (9-20) mg/dL Creatinine 1.03 (0.66-1.25) mg/dL Estimated GFR 76.2 ML/MIN Glucose 121 H (74-106) mg/dL Calcium 9.2 (8.4-10.2) mg/dL Total Bilirubin 1.50 H (0.2-1.3) mg/dL AST 83 H (17-59) U/L ALT 98 H (0-50) U/L Alkaline Phosphatase 106 (38-126) U/L Troponin I < 0.012 (0.000-0.034) ng/mL Serum Total Protein 7.3 (6.3-8.2) g/dL Albumin 4.1 (3.5-5.0) g/dL Lipase 135 (23-300) U/L Urine Color (Yellow) Urine Appearance (Clear) Urine pH (4.6-8.0) Ur Specific [place] (1.005-1.030) Urine Protein (Negative) Urine Glucose (UA) (Negative) mg/dL Urine Ketones (Negative) Urine Blood (Negative) Urine Nitrite (Negative) Urine Bilirubin (Negative) Urine Urobilinogen (0.2) mg/dL Ur Leukocyte Esterase (Negative) U Hyaline Cast (Auto) (0-2) /LPF Urine Microscopic RBC (0-5) /HPF Urine Microscopic WBC (0-5) /HPF Ur Epithelial Cells (None Seen) /HPF Urine Bacteria (None Seen) /HPF Urine Culture Reflexed (NO) Influenza Type A Ag (NEGATIVE) Influenza Type B Ag (NEGATIVE) RSV (PCR) (NEGATIVE) SARS-CoV-2 (PCR) (NEGATIVE) Slides for Path Review YES 07/24/23 07/24/23 Range/Units 22:59 01:21 WBC (4.0-10.5) x10^3/uL RBC (4.1-5.6) x10^6/uL Hgb (12.5-18.0) g/dL Hct (42-50) % MCV (78-100) fL MCH (26-32) pg MCHC (32-36) g/dL RDW (11.5-14.0) % Plt Count (150-450) x10^3/uL MPV (7.5-11.0) fL Gran % (36.0-66.0) % Immature Gran % (Auto) (0.00-0.4) % Nucleat RBC Rel Count (0.00-0.1) % Eos # (Auto) (0-0.5) x10^3/uL Immature Gran # (Auto) (0.00-0.03) x10^3u/L Absolute Lymphs (auto) (1.0-4.6) x10^3/uL Absolute Monos (auto) (0.0-1.3) x10^3/uL Absolute Nucleated RBC (0.00-0.01) x10^3u/L Lymphocytes % (24.0-44.0) % Monocytes % (0.0-12.0) % Eosinophils % (0.00-5.0) % Basophils % (0.0-0.4) % Absolute Granulocytes (1.4-6.9) x10^3/uL Basophils # (0-0.4) x10^3/uL Sodium (135-145) mmol/L Potassium (3.5-5.1) mmol/L Chloride (98-107) mmol/L Carbon Dioxide (22-30) mmol/L Anion Gap (5-15) MEQ/L BUN (9-20) mg/dL Creatinine (0.66-1.25) mg/dL Estimated GFR ML/MIN Glucose (74-106) mg/dL Calcium (8.4-10.2) mg/dL Total Bilirubin (0.2-1.3) mg/dL AST (17-59) U/L ALT (0-50) U/L Alkaline Phosphatase (38-126) U/L Troponin I (0.000-0.034) ng/mL Serum Total Protein (6.3-8.2) g/dL Albumin (3.5-5.0) g/dL Lipase (23-300) U/L Urine Color Dark Yellow (Yellow) Urine Appearance Clear (Clear) Urine pH 7.0 (4.6-8.0) Ur Specific [place] 1.025 (1.005-1.030) Urine Protein Trace A (Negative) Urine Glucose (UA) Negative (Negative) mg/dL Urine Ketones 15 A (Negative) Urine Blood Negative (Negative) Urine Nitrite Negative (Negative) Urine Bilirubin Negative (Negative) Urine Urobilinogen 1.0 A (0.2) mg/dL Ur Leukocyte Esterase Trace A (Negative) U Hyaline Cast (Auto) NONE SEEN (0-2) /LPF Urine Microscopic RBC 0-2 (0-5) /HPF Urine Microscopic WBC 0-2 (0-5) /HPF Ur Epithelial Cells None Seen (None Seen) /HPF Urine Bacteria None Seen (None Seen) /HPF Urine Culture Reflexed NO (NO) Influenza Type A Ag NEGATIVE (NEGATIVE) Influenza Type B Ag NEGATIVE (NEGATIVE) RSV (PCR) NEGATIVE (NEGATIVE) SARS-CoV-2 (PCR) NEGATIVE (NEGATIVE) Slides for Path Review - Progress Progress: improved Progress Note: 73-year-old male presents to our ED for evaluation of nausea and vomiting. Phys ical exam showed dry oral mucous membranes. Workup reveals elevated specific gravity BUN/creatinine ratio greater than 20-1 coupled with history of diarrhea nausea and vomiting and physical exam highly suggestive of dehydration. Patient received 2 L of normal saline. Zofran administered. Nausea vomiting resolved. Patient had mild diffuse abdominal pain. CT scan revealed an enlarged prostate. There is a right exophytic renal cyst. There was also an area that could possibly be early mild diverticulitis. However patient has no left lower quadrant pain. We discussed managing this finding with antibiotics however in light of the fact that patient has no active pain at this site we decided to hold off on antibiotics and change his diet to clear liquids for the next few days and see how things progress. Patient understands that if he develops pain or concerning symptoms such as rectal bleeding patient is to return to our ED for reassessment. Vital stable. Daughter at bedside. They voiced no other complaints or concerns at this time. Portions of this note were created with voice recognition technology. There may be grammatical, spelling, punctuation or sound alike errors Complexity problem addressed is moderate acute complicated No critical care time Complexity of data reviewed and analyzed is moderate. Test ordered test reviewed results analyzed and correlated clinically with history and physical exam. Risk of complication and or risk of morbidity/mortality patient management is moderate. A prescription for Zofran forwarded to patient's pharmacy. Vital stable. Time spent to discharge patient is approximately 20 minutes. Plan of care established for shared decision making. No social determinants of health present impede follow-up. Portions of this note were created with voice recognition technology. There may be grammatical, spelling, punctuation or sound alike errors 07/25/23 02:14 Counseled pt/family regarding: lab results, diagnosis, need for follow-up, rad results - Departure Departure Disposition: Home Clinical Impression: Nausea and vomiting, Diverticulosis, Hiatal hernia, Appendicolith, Right renal exophytic cyst, L5 pars interarticularis fracture, Grade 1 anterolisthesis, Enlarged prostate, Dehydration Condition: Stable Critical Care Time: No Referrals: JOHANN HURTADO DO [Primary Care Provider] - Follow up/PCP as directed Additional Instructions: Discharge/Care Plan GENIA SHERIFF was seen on 07/25/23 in the Emergency Room. The patient was counseled regarding Diagnosis,Lab results, Imaging studies, need for follow up and when to return to the Emergency Room. Prescriptions given: Discharge Note I have spoken with the patient and/or caregivers. I have explained the patient's condition, diagnosis and treatment plan based on the information available to me at this time. I have answered the patient's and/or caregiver's questions and addressed any concerns. The patient and/or caregivers have as good understanding of the patient's diagnosis, condition and treatment plan as can be expected at this point. The vital signs have been stable. The patient's condition is stable and appropriate for discharge from the emergency department. The patient will pursue further outpatient evaluation with the primary care physician or other designated or consulting physician as outlined in the dischar ge instructions. The patient and/or caregivers are agreeable to this plan of care and follow-up instructions have been explained in detail. The patient and/or caregivers have received these instruction. The patient/and or caregivers are aware that any significant change in condition or worsening of symptoms should prompt an immediate return to this or the closest emergency department or call 911.
--- NOTE | 2023-07-24 23:50 | XRAY ---
CLINICAL HISTORY: pain COMPARISON: CT:08/17/2021. TECHNIQUE: CT scan of abdomen pelvis was performed without contrast. One of the following dose reduction techniques were utilized for this exam: Automated exposure control, adjustment of the mA and/or kV according to patient size, and use of iterative reconstruction. FINDINGS: Multiple outpouchings are identified along the descending and sigmoid colon representing features of colonic diverticulosis. An area of pericolonic fat stranding is identified along the junction of the descending and sigmoid colon. Possibility of mild acute diverticulitis needs to be excluded. Mild colonic fecal loading. There is suggestion of a sliding hiatus hernia with the intercrural distance measuring 26 mm on axial section. Few of the small bowel loops are placed lateral to the colon in the right side of the abdomen. Small and rest of the visualized large bowel loops appear normal without signs of bowel obstruction or perforation. Appendix is separately visualized and is normal in caliber without periappendiceal fat stranding or features of acute appendicitis. High density material is identified within the proximal appendiceal lumen likely representing intraluminal appendicolith/impacted food material. Liver is normal in size with normal parenchymal attenuation and regular margins. Multiple subcentimeter in size calcific densities are identified scattered in bilateral hepatic lobes likely representing calcified granulomas. Spleen appears normal in size with multiple punctate calcific foci scattered throughout its parenchyma likely calcified granulomas as a sequelae of prior infection. Gallbladder is not visualized with surgical clips in the gallbladder fossa consistent with history of status postcholecystectomy. Mild mesenteric hyperemia and congestion is identified in the mid abdomen. Pancreas shows age-related parenchymal atrophy without convincing features of pancreatic ductal dilatation or peripancreatic fat stranding. Bilateral adrenal glands appear normal. Atherosclerotic calcifications are identified in the abdominal aorta and some of its major branches. Both kidneys are normal in size, shape and orientation without nephrolithiasis or significant obstructive uropathy bilaterally. Mild nonspecific perinephric fat stranding is identified bilaterally. Large partly exophytic simple cortical cyst is identified in the right inferior renal pole measuring 49 x 45 mm on axial section. Urinary bladder is suboptimally distended on this examination. Prostate gland appears enlarged measuring 44 x 61 x 42 mm with a volume of approximately 56 mL. No evidence of ascites. No significant abdominal or pelvic lymphadenopathy is identified. Small fat-containing umbilical hernia is identified with the anterior abdominal wall defect measuring 5 mm on axial section. Using appropriate lung windows settings, mild bibasilar atelectasis is identified. There is suggestion of few subcentimeter in size partly calcified nodules in the right middle and left lower lung lobe. Using appropriate bone window settings, straightening of the lumbar spine is identified likely secondary to muscular spasm with multilevel degenerative changes as evident by multilevel osteophytosis. There is evidence of bilateral L5 pars interarticularis fracture with grade 1 anterolisthesis of L5 over S1 vertebral body. This is associated with degenerative changes as evident by reduced intervertebral disc space at L5-S1 level with intervertebral vacuum phenomena and facet arthropathy. This is resulting in mild canal stenosis. IMPRESSION: 1. Colonic diverticulosis with an area of pericolonic fat stranding at the junction of the descending and sigmoid colon raising suspicion of mild acute diverticulitis. Clinical and laboratory correlation and if indicated, a CT abdomen with IV and rectal contrast is recommended for further evaluation. 2. Mild mesenteric hyperemia and congestion in the mid abdomen. 3. Suggestion of a small hiatus hernia. 4. Appendicolith without CT features of acute appendicitis. 5. Redemonstration of numerous subcentimeter in size calcific foci scattered within the splenic and hepatic parenchyma likely representing calcified granulomas as a sequelae of prior infection. 6. Bosniak type I right renal cortical cyst. Stable finding. 7. Prostatomegaly. 8. Minimal bibasilar atelectasis with at leat two subcentimeter in size calcified nodules in the right middle and left lower lung lobe likely representing pulmonary granulomas. 9. Thoracolumbar spondylosis. 10. Bilateral L5 spondylolysis with grade 1 spondylolisthesis as detailed above. Stable finding. 11. Rest of the findings are stable and as detailed above. Electronically Signed by: Ivette Johnson MD. (07/24/2023 23:45:11 EDT)
[2023-07-25 00:15] LABS: Slide Review 1 YES
[2023-07-25] MEDS ORDERED: Lactated Ringers 1,000 ML IV ONE (00:32)
[2023-07-25] MEDS: Lactated Ringers 1,000 ML IV SCH (00:33)
[2023-07-25 01:30] LABS: Appearance Clear (Clear); Bacteria None Seen /HPF (None Seen); Bilirubin Negative (Negative); Blood Negative (Negative); Epithelial Cells None Seen /HPF (None Seen); Glucose, Urine Negative (Negative); Hyaline Casts NONE SEEN /LPF (0-2); Ketones 15 (Negative); Leukocyte Esterase Trace (Negative); Nitrite Negative (Negative); Protein,Urine Dip Trace (Negative); RBC 0-2 /HPF (0-5); Specific Gravity 1.025 (1.005-1.030); WBC 0-2 /HPF (0-5)
[2023-07-25 01:33] LABS: ADD URINE CULTURE? NO (NO)
[2023-07-25 02:24] VITALS: BP 122/74; PULSE 96; RESP 18; O2SAT 97
== END 2023-07-25 02:50 | disposition home or self-care (01) ==
LOC: ED 21:55
DX: R11.2 Nausea with vomiting, unspecified (principal); K57.90 Diverticulosis of intestine, part unspecified, without perforation or abscess without bleeding; K44.9 Diaphragmatic hernia without obstruction or gangrene; K38.1 Appendicular concretions; N28.1 Cyst of kidney, acquired; M43.16 Spondylolisthesis, lumbar region; N40.0 Benign prostatic hyperplasia without lower urinary tract symptoms; E86.0 Dehydration; R19.7 Diarrhea, unspecified; Z79.01 Long term (current) use of anticoagulants; Z79.899 Other long term (current) drug therapy
CPT/HCPCS: 0241U; 36000; 36415; 74176; 80053; 81001; 83690; 84484; 85025; 93005; 96374; 99284; J2405

== ENCOUNTER 2023-07-27 18:09 | Observation (INO) | payer MEDICARE, OTHER ==
[2023-07-27] MEDS ORDERED: BENADRYL 50 MG/ML ONE (18:35)
[2023-07-27 18:36] LABS: Absolute Neutrophil Ct (ANC) 4.02 x10^3/uL (1.4-6.9); BASOPHIL % 0.6 % (0.0-0.4); Basophil (Absolute #) 0.04 x10^3/uL (0-0.4); Eosinophil % 0.6 % (0.00-5.0); Eosinophil (Absolute #) 0.04 x10^3/uL (0-0.5); Hematocrit 45.6 % (42-50); Hemoglobin 15.3 g/dL (12.5-18.0); IMMATURE GRAN # 0.02 x10^3u/L (0.00-0.03); IMMATURE GRAN % 0.3 % (0.00-0.4); Lymphocyte (Absolute #) 1.72 x10^3/uL (1.0-4.6); Lymphocytes % 24.5 % (24.0-44.0); Mean Cell Volume 96.2 fL (78-100); Mean Corpuscular Hemoglobin 32.3 pg (26-32); Mean Corpuscular Hgb Concent. 33.6 g/dL (32-36); Mean Platelet Volume 10.9 fL (7.5-11.0); Monocyte (Absolute #) 1.18 x10^3/uL (0.0-1.3); Monocytes % 16.8 % (0.0-12.0); Neutrophil % 57.2 % (36.0-66.0); Platelet Count 196 x10^3/uL (150-450); Red Blood Count 4.74 x10^6/uL (4.1-5.6); Red Cell Distribution Width 13.2 % (11.5-14.0)
[2023-07-27] MEDS ORDERED: Sodium Chloride 0.9% 1000 ML 1,000 ML ONE (18:36)
[2023-07-27] MEDS ORDERED: SUBLIMAZE 100 MCG/2 ML ONE (18:36)
[2023-07-27] MEDS: Sodium Chloride 0.9% 1000 ML 1,000 ML IV STA (18:38)
[2023-07-27] MEDS: BENADRYL 50 MG/ML IV ONE (18:38)
--- NOTE | 2023-07-27 18:38 | ERPHSYRPT ---
- History of Present Illness Historian: patient, family Exam Limitations: no limitations Patient Subjective Stated Complaint: pt here for abd pain with nausea and vomiting since sat. loose stools today, no fever, able to eat and drink some Triage Nursing Assessment: pt alert, walked in, resp easy, skin w/d/p. abd distended, pain to lower abd.moves all ext well Timing/Duration: day(s) (3) Activities at Onset: none Quality: fullness, stabbing Abdominal Pain Onset Location: generalized abdomen Pain Radiation: no radiation Severity of Pain-Max: moderate Severity of Pain-Current: moderate Associated Symptoms: diarrhea, nausea, vomiting Hx Tetanus, Diphtheria Vaccination/Date Given: Yes Hx Influenza Vaccination/Date Given: Yes Hx Pneumococcal Vaccination/Date Given: Yes Immunizations Up to Date: Yes <OLEGARIO DANGELO - Last Filed: 07/27/23 18:33> <DIAZ CARREON - Last Filed: 07/27/23 23:02> - History of Present Illness Time Seen by Provider: 07/27/23 18:33 Physician History: Patient is a 73-year-old white male who was actually seen in our ER 3 days ago for evaluation of nausea and vomiting his workup at that time showed dry oral membranes and high specific gravity suggesting dehydration he did receive 2 L of normal saline and Zofran. The nausea and vomiting resolved he continued to have diffuse abdominal pain. A CT scan revealed an enlarged prostate and iced the area that could possibly be early mild diverticulitis. However he had no palpable pain in that quadrant and it was decided to not treat him with antibiotics and to see how things progressed over the next few days.Since his visit here he has vomited twice and his nausea has improved but he has continued to have severe diarrhea. Today he developed severe stomach cramps in the lower abdomen. (OLEGARIO DANGELO) Allergies/Adverse Reactions: hydrocodone [From [place]] Allergy (Verified 07/27/23 18:16) Vomiting Home Medications: Buspirone HCl [Buspar] 5 mg PO BID 03/31/15 [History] Nitroglycerin 0.4 mg Tablet [Nitrostat 0.4 MG Tablet] 0.4 mg SL UD PRN 03/31/15 [History] Tamsulosin HCl 0.4 mg [Flomax 0.4 MG] 0.4 mg PO HS 03/31/15 [History] Omeprazole 10 mg PO DAILY 06/30/19 [History] dilTIAZem HCL [Diltiazem 24Hr ER] 180 mg PO DAILY 06/30/19 [History] lisinopriL [Lisinopril] 2.5 mg PO DAILY 09/23/21 [History] Warfarin Sodium 5 mg PO MOWEFR 10/05/21 [History] buPROPion HCL [Wellbutrin Xl] 300 mg PO DAILY 10/05/21 [History] Ascorbate Calcium [Vitamin C] 500 mg PO DAILY 05/31/22 [History] Cholecalciferol (Vitamin D3) [Vitamin D3] 2,000 unit PO DAILY 05/31/22 [History] Loratadine 10 mg [Claritin 10 mg] 10 mg PO DAILY 05/31/22 [History] Zinc Gluconate [Zinc] 50 mg PO DAILY 05/31/22 [History] Albuterol Common Canister [Ventolin Common Canister] 2 puff IH Q4-6HPRN PRN 07/17/23 [History] Atorvastatin Calcium 40 mg PO HS 07/24/23 [History] Multivitamin 1 each PO DAILY 07/24/23 [History] Travel Risk - International Travel Have you traveled outside of the country in past 3 weeks: No - Emerging Infectious Disease Are you exhibiting symptoms associated with any current EIDs: Yes Symptoms: Abdominal Pain <OLEGARIO DANGELO - Last Filed: 07/27/23 18:33> - Review of Systems Constitutional: No Fever, No Chills Eyes: No Symptoms Ears, Nose, & Throat: No Symptoms Respiratory: No Cough, No Dyspnea Cardiac: No Chest Pain, No Edema, No Syncope Abdominal/Gastrointestinal: Abdominal Pain, Nausea, Vomiting, No Diarrhea Genitourinary Symptoms: No Dysuria Musculoskeletal: No Back Pain, No Neck Pain Skin: No Rash Neurological: No Dizziness, No Focal Weakness, No Sensory Changes Psychological: No Symptoms Endocrine: No Symptoms All Other Systems: Reviewed and Negative <OLEGARIO DANGELO - Last Filed: 07/27/23 18:33> - Past Medical History Pertinent Past Medical History: Yes Neurological History: Migraines ENT History: No Pertinent History Cardiac History: Coronary Artery Disease, Myocardial Infarction ([place]) Respiratory History: Sleep Apnea Endocrine Medical History: No Pertinent History Musculoskeletal History: No Pertinent History GI Medical History: GERD, Gallbladder Disease History: No Pertinent History Psycho-Social History: Anxiety Male Reproductive Disorders: Other Other Medical History: [place] 2006, GALLBLADDER REMOVED 25+ YEARS AGO - Past Surgical History Past Surgical History: Yes Neuro Surgical History: No Pertinent History Cardiac: Cardiac Catheterization, Cardiac Stent Respiratory: No Pertinent History Gastrointestinal: Cholecystectomy Genitourinary: No Pertinent History Musculoskeletal: No Pertinent History, Orthopedic Surgery Male Surgical History: No Pertinent History Other Surgical History: 2006 heart attack with stent placed, shoulder surgery may 2019 - Social History Smoking Status: Never smoker Exposure to second hand smoke: No Drug Use: none Patient Lives Alone: No <OLEGARIO DANGELO Filed: 07/27/23 18:33> - Physical Exam General Appearance: moderate distress, alert Eye Exam: PERRL/EOMI, eyes nml inspection Ears, Nose, Throat Exam: dry mucous membranes Neck Exam: normal inspection, non-tender, supple, full range of motion Respiratory Exam: normal breath sounds, lungs clear, No respiratory distress Cardiovascular Exam: regular rate/rhythm, normal heart sounds Gastrointestinal/Abdomen Exam: tenderness, distention, guarding, rebound (There is slight rebound in the lower abdomen), No normal bowel sounds (Bowel sounds are definitely decreased), No mass Back Exam: normal inspection, normal range of motion, No CVA tenderness, No vertebral tenderness Extremity Exam: normal inspection, normal range of motion, pelvis stable Neurologic Exam: alert, oriented x 3, cooperative, normal mood/affect, nml cerebellar function, sensation nml, No motor deficits Skin Exam: normal color, warm, dry SpO2 Interpretation: normal SpO2: 97 O2 Delivery: Room Air <JONHCASEYOLEGARIO Filed: 07/27/23 18:33> - Nursing Vital Signs Nursing Vital Signs: Initial Vital Signs Pulse Rate 75 07/27/23 18:13 Respiratory Rate 17 07/27/23 18:13 Blood Pressure 144/78 07/27/23 18:13 O2 Sat by Pulse Oximetry 97 07/27/23 18:13 Pain Scale Pain Intensity 2 - Course Nursing assessment & vital signs reviewed: Yes - CT Exams Abdomen/Pelvis CT Interpretation: Tele-radiologist Report (Interval dilatation of the jejunum, ileum as well as the ascending and transverse colon. Redemonstration of multiple diverticula in the descending and sigmoid colon with minimal adjacent fat- strandings in the sigmoid suggestive of an early inflammatory process.) <DIAZ CARREON - Last Filed: 07/27/23 23:02> Ordered Tests: Active Orders 24 hr Category Date Time Status EKG-ER Only STAT Care 07/27/23 18:26 Active IV Insertion STAT Care 07/27/23 18:26 Active ABDOMEN AND PELVIS W CONTRAST [CT] Stat Exams 07/27/23 18:27 Completed CHEST 1 VIEW (PORTABLE) Stat Exams 07/27/23 18:26 Completed AMYLASE Stat Lab 07/27/23 19:00 Completed CBC W DIFF Stat Lab 07/27/23 18:33 Completed CMP Stat Lab 07/27/23 18:33 Completed LIPASE Stat Lab 07/27/23 18:33 Completed Lactic Acid Stat Lab 07/27/23 18:33 Completed MONO SCREEN Stat Lab 07/27/23 19:00 Completed PROTIME WITH INR Stat Lab 07/27/23 18:33 Completed TROPONIN Q4H Lab 07/27/23 18:33 Completed TROPONIN Q4H Lab 07/27/23 22:30 Received TROPONIN Q4H Lab 07/28/23 02:30 Ordered UA W/RFX UR CULTURE Stat Lab 07/27/23 18:26 Ordered Medication Summary Discontinued Medications Generic Name Dose Route Start Last Admin Trade Name Freq PRN Reason Stop Dose Admin Diphenhydramine HCl 25 mg 07/27/23 18:26 07/27/23 18:38 Diphenhydramine Hcl 50 Mg/Ml Vial IV 07/27/23 18:27 25 mg STAT ONE Administration Diphenhydramine HCl Confirm 07/27/23 18:35 Diphenhydramine Hcl 50 Mg/Ml Vial Administered 07/27/23 18:36 Dose 50 mg .ROUTE .STK-MED ONE Fentanyl Citrate 100 mcg 07/27/23 18:26 07/27/23 18:39 Fentanyl Citrate 100 Mcg/2 Ml* Vial IV 07/27/23 18:27 100 mcg STAT ONE Administration Fentanyl Citrate Confirm 07/27/23 18:36 Fentanyl Citrate 100 Mcg/2 Ml* Vial Administered 07/27/23 18:37 Dose 100 mcg .ROUTE .STK-MED ONE Sodium Chloride 1,000 mls @ 999 mls/hr 07/27/23 18:26 07/27/23 18:38 Sodium Chloride 0.9% 1000 Ml IV 07/27/23 19:26 999 mls/hr .Q1H1M STA Administration Sodium Chloride Confirm 07/27/23 18:36 Sodium Chloride 0.9% 1000 Ml Administered 07/27/23 18:37 Dose 1,000 mls @ ud .ROUTE .STK-MED ONE Ondansetron HCl 4 mg 07/27/23 19:29 07/27/23 19:32 Ondansetron Hcl 4 Mg/2 Ml Vial IV 07/27/23 19:30 4 mg STAT ONE Administration Ondansetron HCl Confirm 07/27/23 19:31 Ondansetron Hcl 4 Mg/2 Ml Vial Administered 07/27/23 19:32 Dose 4 mg .ROUTE .STK-MED ONE Lab/Rad Data: Laboratory Result Diagrams 07/27/23 18:33 07/27/23 18:33 Laboratory Results 07/27/23 07/27/23 07/27/23 Range/Units 19:37 19:37 19:00 WBC (4.0-10.5) x10^3/uL RBC (4.1-5.6) x10^6/uL Hgb (12.5-18.0) g/dL Hct (42-50) % MCV (78-100) fL MCH (26-32) pg MCHC (32-36) g/dL RDW (11.5-14.0) % Plt Count (150-450) x10^3/uL MPV (7.5-11.0) fL Gran % (36.0-66.0) % Immature Gran % (Auto) (0.00-0.4) % Nucleat RBC Rel Count (0.00-0.1) % Eos # (Auto) (0-0.5) x10^3/uL Immature Gran # (Auto) (0.00-0.03) x10^3u/L Absolute Lymphs (auto) (1.0-4.6) x10^3/uL Absolute Monos (auto) (0.0-1.3) x10^3/uL Absolute Nucleated RBC (0.00-0.01) x10^3u/L Lymphocytes % (24.0-44.0) % Monocytes % (0.0-12.0) % Eosinophils % (0.00-5.0) % Basophils % (0.0-0.4) % Absolute Granulocytes (1.4-6.9) x10^3/uL Basophils # (0-0.4) x10^3/uL PT (9.4-12.5) SECONDS INR (0.8-3.0) Sodium (135-145) mmol/L Potassium (3.5-5.1) mmol/L Chloride (98-107) mmol/L Carbon Dioxide (22-30) mmol/L Anion Gap (5-15) MEQ/L BUN (9-20) mg/dL Creatinine (0.66-1.25) mg/dL Estimated GFR ML/MIN Glucose (74-106) mg/dL Lactic Acid (0.4-2.0) Calcium (8.4-10.2) mg/dL Total Bilirubin (0.2-1.3) mg/dL AST (17-59) U/L ALT (0-50) U/L Alkaline Phosphatase (38-126) U/L Troponin I (0.000-0.034) ng/mL Serum Total Protein (6.3-8.2) g/dL Albumin (3.5-5.0) g/dL Amylase (30-110) U/L Lipase (23-300) U/L Monoscreen NEGATIVE (NEGATIVE) Influenza Type A Ag NEGATIVE (NEGATIVE) Influenza Type B Ag NEGATIVE (NEGATIVE) RSV (PCR) NEGATIVE (NEGATIVE) SARS-CoV-2 (PCR) NEGATIVE (NEGATIVE) Group A Strep Antibody NOT DETECTED (NEGATIVE) 07/27/23 07/27/23 07/27/23 Range/Units 19:00 18:33 18:33 WBC (4.0-10.5) x10^3/uL RBC (4.1-5.6) x10^6/uL Hgb (12.5-18.0) g/dL Hct (42-50) % MCV (78-100) fL MCH (26-32) pg MCHC (32-36) g/dL RDW (11.5-14.0) % Plt Count (150-450) x10^3/uL MPV (7.5-11.0) fL Gran % (36.0-66.0) % Immature Gran % (Auto) (0.00-0.4) % Nucleat RBC Rel Count (0.00-0.1) % Eos # (Auto) (0-0.5) x10^3/uL Immature Gran # (Auto) (0.00-0.03) x10^3u/L Absolute Lymphs (auto) (1.0-4.6) x10^3/uL Absolute Monos (auto) (0.0-1.3) x10^3/uL Absolute Nucleated RBC (0.00-0.01) x10^3u/L Lymphocytes % (24.0-44.0) % Monocytes % (0.0-12.0) % Eosinophils % (0.00-5.0) % Basophils % (0.0-0.4) % Absolute Granulocytes (1.4-6.9) x10^3/uL Basophils # (0-0.4) x10^3/uL PT 65.7 H (9.4-12.5) SECONDS INR 6.84 H* (0.8-3.0) Sodium (135-145) mmol/L Potassium (3.5-5.1) mmol/L Chloride (98-107) mmol/L Carbon Dioxide (22-30) mmol/L Anion Gap (5-15) MEQ/L BUN (9-20) mg/dL Creatinine (0.66-1.25) mg/dL Estimated GFR ML/MIN Glucose (74-106) mg/dL Lactic Acid (0.4-2.0) Calcium (8.4-10.2) mg/dL Total Bilirubin (0.2-1.3) mg/dL AST (17-59) U/L ALT (0-50) U/L Alkaline Phosphatase (38-126) U/L Troponin I < 0.012 (0.000-0.034) ng/mL Serum Total Protein (6.3-8.2) g/dL Albumin (3.5-5.0) g/dL Amylase 79 (30-110) U/L Lipase (23-300) U/L Monoscreen (NEGATIVE) Influenza Type A Ag (NEGATIVE) Influenza Type B Ag (NEGATIVE) RSV (PCR) (NEGATIVE) SARS-CoV-2 (PCR) (NEGATIVE) Group A Strep Antibody (NEGATIVE) 07/27/23 07/27/23 07/27/23 Range/Units 18:33 18:33 18:33 WBC 7.0 (4.0-10.5) x10^3/uL RBC 4.74 (4.1-5.6) x10^6/uL Hgb 15.3 (12.5-18.0) g/dL Hct 45.6 (42-50) % MCV 96.2 (78-100) fL MCH 32.3 H (26-32) pg MCHC 33.6 (32-36) g/dL RDW 13.2 (11.5-14.0) % Plt Count 196 (150-450) x10^3/uL MPV 10.9 (7.5-11.0) fL Gran % 57.2 (36.0-66.0) % Immature Gran % (Auto) 0.3 (0.00-0.4) % Nucleat RBC Rel Count 0.0 (0.00-0.1) % Eos # (Auto) 0.04 (0-0.5) x10^3/uL Immature Gran # (Auto) 0.02 (0.00-0.03) x10^3u/L Absolute Lymphs (auto) 1.72 (1.0-4.6) x10^3/uL Absolute Monos (auto) 1.18 (0.0-1.3) x10^3/uL Absolute Nucleated RBC 0.00 (0.00-0.01) x10^3u/L Lymphocytes % 24.5 (24.0-44.0) % Monocytes % 16.8 H (0.0-12.0) % Eosinophils % 0.6 (0.00-5.0) % Basophils % 0.6 (0.0-0.4) % Absolute Granulocytes 4.02 (1.4-6.9) x10^3/uL Basophils # 0.04 (0-0.4) x10^3/uL PT (9.4-12.5) SECONDS INR (0.8-3.0) Sodium 137 (135-145) mmol/L Potassium 3.3 L (3.5-5.1) mmol/L Chloride 102 (98-107) mmol/L Carbon Dioxide 27 (22-30) mmol/L Anion Gap 11.1 (5-15) MEQ/L BUN 23 H (9-20) mg/dL Creatinine 1.05 (0.66-1.25) mg/dL Estimated GFR 74.5 ML/MIN Glucose 123 H (74-106) mg/dL Lactic Acid 1.6 (0.4-2.0) Calcium 8.7 (8.4-10.2) mg/dL Total Bilirubin 0.90 (0.2-1.3) mg/dL AST 73 H (17-59) U/L ALT 85 H (0-50) U/L Alkaline Phosphatase 129 H (38-126) U/L Troponin I (0.000-0.034) ng/mL Serum Total Protein 6.6 (6.3-8.2) g/dL Albumin 3.6 (3.5-5.0) g/dL Amylase (30-110) U/L Lipase 83 (23-300) U/L Monoscreen (NEGATIVE) Influenza Type A Ag (NEGATIVE) Influenza Type B Ag (NEGATIVE) RSV (PCR) (NEGATIVE) SARS-CoV-2 (PCR) (NEGATIVE) Group A Strep Antibody (NEGATIVE) - Progress Progress: unchanged Discussed with .: Amber (Spoke with & discussed pt with Dr. Fishman - obs.) Will see patient in: hospital (observation) Counseled pt/family regarding: lab results, diagnosis, rad results <DIAZ CARREON - Last Filed: 07/27/23 23:02> - Progress Progress Note: 07/27/23 19:[address] Carreon @ 1919: eomi, TM's not injected, pharynx mildly erythematous, lungs clear, no cardiac rub, abdominal B.S. mildly hyperactive with minimally increased pitch, mild abdominal distension without tenderness, no ankle edema, alert & cooperative. (DIAZ CARREON) Medical Desision Making - Diagnostic Testing Diagnostic test were ordered, analyzed, and reviewed by me: Yes Radiological Interpretation: Teleradiologist Report <DIAZ CARREON - Last Filed: 07/27/23 23:02> - Departure Departure Disposition: Observation Critical Care Time: No <OLEGARIO DANGELO - Last Filed: 07/27/23 18:33> <DIAZ CARREON - Last Filed: 07/27/23 23:02> - Departure Clinical Impression: Abdominal pain, Nausea and vomiting, Dehydration, Diarrhea, Diverticulitis, Elevated INR Condition: Stable Referrals: JOHANN HURTADO DO [Primary Care Provider] - Follow up/PCP as directed
[2023-07-27] MEDS: SUBLIMAZE 100 MCG/2 ML IV ONE (18:39)
[2023-07-27 18:53] LABS: ALBUMIN 3.6 g/dL (3.5-5.0); ANION GAP 11.1 MEQ/L (5-15); BILIRUBIN,TOTAL 0.9 mg/dL (0.2-1.3); Calcium 8.7 mg/dL (8.4-10.2); Creatinine 1 1.05 mg/dL (0.66-1.25); EST GLOMERULAR FILTRATION RATE 74.5 ML/MIN; Potassium 3.3 mmol/L (3.5-5.1); Total Protein 6.6 g/dL (6.3-8.2)
[2023-07-27 19:24] LABS: PROTIME 65.7 SECONDS (9.4-12.5)
[2023-07-27 19:25] LABS: INR 6.84 (0.8-3.0)
[2023-07-27] MEDS ORDERED: Zofran 4 MG/2 ML VIAL ONE (19:31)
[2023-07-27] MEDS: Zofran 4 MG/2 ML VIAL IV ONE (19:32)
--- NOTE | 2023-07-27 20:09 | XRAY ---
Indication: Pain. Comparison: March 14, 2023 Portable chest less inflated with now minimal bibasilar subsegmental atelectasis/scarring. Remaining heart and lungs unremarkable. Bony thorax intact again with osteopenia and mild degenerative changes..
[2023-07-27 20:17] LABS: INFLUENZA A NEGATIVE (NEGATIVE); INFLUENZA B NEGATIVE (NEGATIVE); RESPIRATORY SYNCTIAL VIRUS NEGATIVE (NEGATIVE); SARS-CoV-2 Xpert Express NEGATIVE (NEGATIVE)
--- NOTE | 2023-07-27 20:47 | XRAY ---
CLINICAL HISTORY: pain COMPARISON: 07/24/2023 TECHNIQUE: A CT scan of the abdomen and pelvis was performed without and with IV contrast. Coronal and sagittal reconstructive images were also obtained. One of the following dose reduction techniques were utilized for this exam: Automated exposure control, adjustment of the mA and/or kV according to patient size, use of iterative reconstruction. FINDINGS: Visualized lungs: Mild bibasilar atelectasis is identified. There are a few [id number] partly calcified nodules in the right middle and left lower lung lobe. Abdomen: There is interval dilatation of the jejunum, ileum as well as the ascending and transverse colon. The small bowel measures up to 3.7 cm. The colon measures up to 6.5 cm. Redemonstration of multiple diverticula in the descending and sigmoid colon with minimal adjacent fat-strandings in the sigmoid. The liver is normal in size measuring 16.0 cm craniocaudally. Multiple small parenchymal calcifications are seen. The portal vein is normal. The spleen appears normal in size with multiple punctate calcific foci scattered throughout its parenchyma. The pancreas and adrenal glands are unremarkable. The gallbladder is surgically absent with surgical clips in the gallbladder fossa. There is mild dilatation of the intra-and extrahepatic ducts, with the CBD measuring up to 1.1 cm. Both kidneys are normal in size and shape. No mass, calculi or hydronephrosis. Redemonstration of large partly exophytic simple cortical cyst in the right inferior renal pole measuring 49 x 45 mm on axial section. High-density material is identified within the proximal appendiceal lumen likely representing intraluminal appendicolith/impacted food material. Otherwise, unremarkable. There is no evidence of significant enlargement of the mesenteric or retroperitoneal lymph nodes. Small hiatal hernia is seen. Redemonstration of a small fat-containing umbilical hernia is identified with the anterior abdominal wall defect measuring 5 mm on the axial section. Atherosclerotic calcifications are identified in the abdominal aorta and some of its major branches. Pelvis: The urinary bladder is unremarkable. The prostate gland remains enlarged with an approximate volume of 56 ml. The pelvic vasculature is unremarkable. No evidence of pelvic lymphadenopathy. Mild degenerative osseous changes are seen in the spine and pelvic bones. There is evidence of bilateral L5 pars interarticularis fracture with grade 1 anterolisthesis of L5 over S1 vertebral body. IMPRESSION: 1. Interval dilatation of the jejunum, ileum as well as the ascending and transverse colon. The small bowel measures up to 3.7 cm. The colon measures up to 6.5 cm. No transition zone noted. The primary consideration is ileus. Follow-up is suggested. 2. Redemonstration of multiple diverticula in the descending and sigmoid colon with minimal adjacent fat-strandings in the sigmoid, suggestive of an early inflammatory process. 3. Rest of the findings are unchanged from the previous study dated 07/24/2023. Electronically Signed by: Ivette Johnson MD. (07/27/2023 20:42:21 EDT)
--- NOTE | 2023-07-27 23:27 | PCM.HP ---
History of Present Illness - Chief Complaint Chief Complaint: Nausea, vomiting History of Present Illness: is a 73 year old male presents with recurrent abdominal pain, nausea, vomiting and diarrhea. Denies fevers, travel, sick contacts. Was seen in the ED here a few days ago with similar symptoms and treated for dehydration. CT Interpretation: Tele-radiologist Report (Interval dilatation of the jejunum, ileum as well as the ascending and transverse colon. Redemonstration of multiple diverticula in the descending and sigmoid colon with minimal adjacent fat- strandings in the sigmoid suggestive of an early inflammatory process.) - Review of Systems Constitutional: No Fever, No Chills Eyes: No Symptoms Ears, Nose, & Throat: No Symptoms Respiratory: No Cough, No Short Of Breath Cardiac: No Chest Pain, No Edema, No Syncope Abdominal/Gastrointestinal: No Abdominal Pain, No Nausea, No Vomiting, No Diarrhea Genitourinary Symptoms: No Dysuria Musculoskeletal: No Back Pain, No Neck Pain Skin: No Rash Neurological: No Dizziness, No Focal Weakness, No Sensory Changes Psychological: No Symptoms Endocrine: No Symptoms Hematologic/Lymphatic: No Symptoms Immunological/Allergic: No Symptoms Medications & Allergies Home Medications: Home Medication List Buspirone HCl [Buspar] 5 mg PO BID 03/31/15 [History Confirmed 07/27/23] Nitroglycerin 0.4 mg Tablet [Nitrostat 0.4 MG Tablet] 0.4 mg SL UD PRN 03/31/15 [History Confirmed 07/27/23] Tamsulosin HCl 0.4 mg [Flomax 0.4 MG] 0.4 mg PO HS 03/31/15 [History Confirmed 07/27/23] Omeprazole 10 mg PO DAILY 06/30/19 [History Confirmed 07/27/23] dilTIAZem HCL [Diltiazem 24Hr ER] 180 mg PO DAILY 06/30/19 [History Confirmed 07/27/23] lisinopriL [Lisinopril] 2.5 mg PO DAILY 09/23/21 [History Confirmed 07/27/23] Warfarin Sodium 5 mg PO MOWEFR 10/05/21 [History Confirmed 07/27/23] buPROPion HCL [Wellbutrin Xl] 300 mg PO DAILY 10/05/21 [History Confirmed 07/27/23] Ascorbate Calcium [Vitamin C] 500 mg PO DAILY 05/31/22 [History Confirmed 07/27/23] Cholecalciferol (Vitamin D3) [Vitamin D3] 2,000 unit PO DAILY 05/31/22 [History Confirmed 07/27/23] Loratadine 10 mg [Claritin 10 mg] 10 mg PO DAILY 05/31/22 [History Confirmed 07/27/23] Zinc Gluconate [Zinc] 50 mg PO DAILY 05/31/22 [History Confirmed 07/27/23] Warfarin Sodium 7.5 mg PO SUTUTHSA 60 Days #60 tablet 12/17/22 [Rx Confirmed 07/27/23] Albuterol Common Canister [Ventolin Common Canister] 2 puff IH Q4-6HPRN PRN 07/17/23 [History Confirmed 07/27/23] Atorvastatin Calcium 40 mg PO HS 07/24/23 [History Confirmed 07/27/23] Multivitamin 1 each PO DAILY 07/24/23 [History Confirmed 07/27/23] Ondansetron ODT 4 MG [Zofran Odt 4 mg] 4 mg PO Q6H PRN PRN #10 tablet 07/25/23 [Rx Confirmed 07/27/23] Allergies/Adverse Reactions: Allergies Allergy/AdvReac Type Severity Reaction Status Date / Time hydrocodone [From [place]] Allergy Vomiting Verified 07/27/23 18:16 - Past Medical History Past Medical History: Yes Neurological History: Migraines ENT History: No Pertinent History Cardiac History: Coronary Artery Disease, Myocardial Infarction ([place]) Respiratory History: Sleep Apnea Endocrine Medical History: No Pertinent History Musculoskelatal History: No Pertinent History GI Medical History: GERD, Gallbladder Disease History: No Pertinent History Pyscho-Social History: Anxiety Male Reproductive Disorders: Other Comment: [place] 2006, GALLBLADDER REMOVED 25+ YEARS AGO - Past Surgical History Past Surgical History: Yes Neuro Surgical History: No Pertinent History Cardiac History: Cardiac Catheterization, Cardiac Stent Respiratory Surgery: No Pertinent History GI Surgical History: Cholecystectomy Genitourinary Surgical Hx: No Pertinent History Musculskeletal Surgical Hx: No Pertinent History, Orthopedic Surgery Male Surgical History: No Pertinent History Other Surgical History: 2006 heart attack with stent placed, shoulder surgery may 2019 - Social History Smoking Status: Never smoker Exposure to second hand smoke: No Alcohol: None Drug Use: none - Social Determinants of Health Will the patient participate in the screening: Declined to provide Do you worry about a steady place to live?: No In the past 12 months,have you had to go without utilities?: No Have you or anyone in your house had to go without enough: No Transportation Issues: No Has anyone in your support network made you feel unsafe?: No - Physical Exam Vital Signs: Vital Signs - 24 hr Temp Pulse Resp BP BP Pulse Ox 07/27/23 23:00 74 21 146/78 96 07/27/23 22:30 78 26 H 147/73 95 07/27/23 22:00 95 H 29 H 139/73 98 07/27/23 21:30 74 22 140/78 98 07/27/23 21:00 75 14 136/68 98 07/27/23 20:30 70 16 128/59 98 07/27/23 20:25 71 17 131/60 98 07/27/23 19:00 67 19 132/67 98 07/27/23 18:40 97 07/27/23 18:30 72 16 117/70 97 07/27/23 18:25 98.2 F 73 18 144/78 97 07/27/23 18:13 75 17 144/78 97 General Appearance: no apparent distress, alert Neurologic Exam: alert, oriented x 3, cooperative, normal mood/affect, nml cerebellar function, nml station & gait, sensation nml, No motor deficits Eye Exam: PERRL/EOMI, eyes nml inspection Ears, Nose, Throat Exam: normal ENT inspection, TMs normal, pharynx normal, [place] st mucous membranes Neck Exam: normal inspection, non-tender, supple, full range of motion Respiratory Exam: normal breath sounds, lungs clear, No respiratory distress Cardiovascular Exam: regular rate/rhythm, normal heart sounds, normal peripheral pulses Gastrointestinal/Abdomen Exam: soft, normal bowel sounds, No tenderness, No mass Back Exam: normal inspection, normal range of motion, No CVA tenderness, No vertebral tenderness Extremity Exam: normal inspection, normal range of motion, pelvis stable Skin Exam: normal color, warm, dry, No rash Lymphatic Exam: No adenopathy Results - Labs Lab/Micro Results: Lab Results-Last 24 Hours 07/27/23 07/27/23 07/27/23 Range/Units 18:33 18:33 18:33 WBC 7.0 (4.0-10.5) x10^3/uL RBC 4.74 (4.1-5.6) x10^6/uL Hgb 15.3 (12.5-18.0) g/dL Hct 45.6 (42-50) % MCV 96.2 (78-100) fL MCH 32.3 H (26-32) pg MCHC 33.6 (32-36) g/dL RDW 13.2 (11.5-14.0) % Plt Count 196 (150-450) x10^3/uL MPV 10.9 (7.5-11.0) fL Gran % 57.2 (36.0-66.0) % Immature Gran % (Auto) 0.3 (0.00-0.4) % Nucleat RBC Rel Count 0.0 (0.00-0.1) % Eos # (Auto) 0.04 (0-0.5) x10^3/uL Immature Gran # (Auto) 0.02 (0.00-0.03) x10^3u/L Absolute Lymphs (auto) 1.72 (1.0-4.6) x10^3/uL Absolute Monos (auto) 1.18 (0.0-1.3) x10^3/uL Absolute Nucleated RBC 0.00 (0.00-0.01) x10^3u/L Lymphocytes % 24.5 (24.0-44.0) % Monocytes % 16.8 H (0.0-12.0) % Eosinophils % 0.6 (0.00-5.0) % Basophils % 0.6 (0.0-0.4) % Absolute Granulocytes 4.02 (1.4-6.9) x10^3/uL Basophils # 0.04 (0-0.4) x10^3/uL PT (9.4-12.5) SECONDS INR (0.8-3.0) Sodium 137 (135-145) mmol/L Potassium 3.3 L (3.5-5.1) mmol/L Chloride 102 (98-107) mmol/L Carbon Dioxide 27 (22-30) mmol/L Anion Gap 11.1 (5-15) MEQ/L BUN 23 H (9-20) mg/dL Creatinine 1.05 (0.66-1.25) mg/dL Estimated GFR 74.5 ML/MIN Glucose 123 H (74-106) mg/dL Lactic Acid 1.6 (0.4-2.0) Calcium 8.7 (8.4-10.2) mg/dL Total Bilirubin 0.90 (0.2-1.3) mg/dL AST 73 H (17-59) U/L ALT 85 H (0-50) U/L Alkaline Phosphatase 129 H (38-126) U/L Troponin I (0.000-0.034) ng/mL Serum Total Protein 6.6 (6.3-8.2) g/dL Albumin 3.6 (3.5-5.0) g/dL Amylase (30-110) U/L Lipase 83 (23-300) U/L Monoscreen (NEGATIVE) Influenza Type A Ag (NEGATIVE) Influenza Type B Ag (NEGATIVE) RSV (PCR) (NEGATIVE) SARS-CoV-2 (PCR) (NEGATIVE) Group A Strep Antibody (NEGATIVE) 07/27/23 07/27/23 07/27/23 Range/Units 18:33 18:33 19:00 WBC (4.0-10.5) x10^3/uL RBC (4.1-5.6) x10^6/uL Hgb (12.5-18.0) g/dL Hct (42-50) % MCV (78-100) fL MCH (26-32) pg MCHC (32-36) g/dL RDW (11.5-14.0) % Plt Count (150-450) x10^3/uL MPV (7.5-11.0) fL Gran % (36.0-66.0) % Immature Gran % (Auto) (0.00-0.4) % Nucleat RBC Rel Count (0.00-0.1) % Eos # (Auto) (0-0.5) x10^3/uL Immature Gran # (Auto) (0.00-0.03) x10^3u/L Absolute Lymphs (auto) (1.0-4.6) x10^3/uL Absolute Monos (auto) (0.0-1.3) x10^3/uL Absolute Nucleated RBC (0.00-0.01) x10^3u/L Lymphocytes % (24.0-44.0) % Monocytes % (0.0-12.0) % Eosinophils % (0.00-5.0) % Basophils % (0.0-0.4) % Absolute Granulocytes (1.4-6.9) x10^3/uL Basophils # (0-0.4) x10^3/uL PT 65.7 H (9.4-12.5) SECONDS INR 6.84 H* (0.8-3.0) Sodium (135-145) mmol/L Potassium (3.5-5.1) mmol/L Chloride (98-107) mmol/L Carbon Dioxide (22-30) mmol/L Anion Gap (5-15) MEQ/L BUN (9-20) mg/dL Creatinine (0.66-1.25) mg/dL Estimated GFR ML/MIN Glucose (74-106) mg/dL Lactic Acid (0.4-2.0) Calcium (8.4-10.2) mg/dL Total Bilirubin (0.2-1.3) mg/dL AST (17-59) U/L ALT (0-50) U/L Alkaline Phosphatase (38-126) U/L Troponin I < 0.012 (0.000-0.034) ng/mL Serum Total Protein (6.3-8.2) g/dL Albumin (3.5-5.0) g/dL Amylase 79 (30-110) U/L Lipase (23-300) U/L Monoscreen (NEGATIVE) Influenza Type A Ag (NEGATIVE) Influenza Type B Ag (NEGATIVE) RSV (PCR) (NEGATIVE) SARS-CoV-2 (PCR) (NEGATIVE) Group A Strep Antibody (NEGATIVE) 07/27/23 07/27/23 07/27/23 Range/Units 19:00 19:37 19:37 WBC (4.0-10.5) x10^3/uL RBC (4.1-5.6) x10^6/uL Hgb (12.5-18.0) g/dL Hct (42-50) % MCV (78-100) fL MCH (26-32) pg MCHC (32-36) g/dL RDW (11.5-14.0) % Plt Count (150-450) x10^3/uL MPV (7.5-11.0) fL Gran % (36.0-66.0) % Immature Gran % (Auto) (0.00-0.4) % Nucleat RBC Rel Count (0.00-0.1) % Eos # (Auto) (0-0.5) x10^3/uL Immature Gran # (Auto) (0.00-0.03) x10^3u/L Absolute Lymphs (auto) (1.0-4.6) x10^3/uL Absolute Monos (auto) (0.0-1.3) x10^3/uL Absolute Nucleated RBC (0.00-0.01) x10^3u/L Lymphocytes % (24.0-44.0) % Monocytes % (0.0-12.0) % Eosinophils % (0.00-5.0) % Basophils % (0.0-0.4) % Absolute Granulocytes (1.4-6.9) x10^3/uL Basophils # (0-0.4) x10^3/uL PT (9.4-12.5) SECONDS INR (0.8-3.0) Sodium (135-145) mmol/L Potassium (3.5-5.1) mmol/L Chloride (98-107) mmol/L Carbon Dioxide (22-30) mmol/L Anion Gap (5-15) MEQ/L BUN (9-20) mg/dL Creatinine (0.66-1.25) mg/dL Estimated GFR ML/MIN Glucose (74-106) mg/dL Lactic Acid (0.4-2.0) Calcium (8.4-10.2) mg/dL Total Bilirubin (0.2-1.3) mg/dL AST (17-59) U/L ALT (0-50) U/L Alkaline Phosphatase (38-126) U/L Troponin I (0.000-0.034) ng/mL Serum Total Protein (6.3-8.2) g/dL Albumin (3.5-5.0) g/dL Amylase (30-110) U/L Lipase (23-300) U/L Monoscreen NEGATIVE (NEGATIVE) Influenza Type A Ag NEGATIVE (NEGATIVE) Influenza Type B Ag NEGATIVE (NEGATIVE) RSV (PCR) NEGATIVE (NEGATIVE) SARS-CoV-2 (PCR) NEGATIVE (NEGATIVE) Group A Strep Antibody NOT DETECTED (NEGATIVE) 07/27/23 Range/Units 22:30 WBC (4.0-10.5) x10^3/uL RBC (4.1-5.6) x10^6/uL Hgb (12.5-18.0) g/dL Hct (42-50) % MCV (78-100) fL MCH (26-32) pg MCHC (32-36) g/dL RDW (11.5-14.0) % Plt Count (150-450) x10^3/uL MPV (7.5-11.0) fL Gran % (36.0-66.0) % Immature Gran % (Auto) (0.00-0.4) % Nucleat RBC Rel Count (0.00-0.1) % Eos # (Auto) (0-0.5) x10^3/uL Immature Gran # (Auto) (0.00-0.03) x10^3u/L Absolute Lymphs (auto) (1.0-4.6) x10^3/uL Absolute Monos (auto) (0.0-1.3) x10^3/uL Absolute Nucleated RBC (0.00-0.01) x10^3u/L Lymphocytes % (24.0-44.0) % Monocytes % (0.0-12.0) % Eosinophils % (0.00-5.0) % Basophils % (0.0-0.4) % Absolute Granulocytes (1.4-6.9) x10^3/uL Basophils # (0-0.4) x10^3/uL PT (9.4-12.5) SECONDS INR (0.8-3.0) Sodium (135-145) mmol/L Potassium (3.5-5.1) mmol/L Chloride (98-107) mmol/L Carbon Dioxide (22-30) mmol/L Anion Gap (5-15) MEQ/L BUN (9-20) mg/dL Creatinine (0.66-1.25) mg/dL Estimated GFR ML/MIN Glucose (74-106) mg/dL Lactic Acid (0.4-2.0) Calcium (8.4-10.2) mg/dL Total Bilirubin (0.2-1.3) mg/dL AST (17-59) U/L ALT (0-50) U/L Alkaline Phosphatase (38-126) U/L Troponin I < 0.012 (0.000-0.034) ng/mL Serum Total Protein (6.3-8.2) g/dL Albumin (3.5-5.0) g/dL Amylase (30-110) U/L Lipase (23-300) U/L Monoscreen (NEGATIVE) Influenza Type A Ag (NEGATIVE) Influenza Type B Ag (NEGATIVE) RSV (PCR) (NEGATIVE) SARS-CoV-2 (PCR) (NEGATIVE) Group A Strep Antibody (NEGATIVE) - Radiology Impressions Radiology Exams & Impressions: Radiology Procedures CT Interpretation: Tele-radiologist Report (Interval dilatation of the jejunum, ileum as well as the ascending and transverse colon. Redemonstration of multiple diverticula in the descending and sigmoid colon with minimal adjacent fat- strandings in the sigmoid suggestive of an early inflammatory process.) Category Date Time Status ABDOMEN AND PELVIS W CONTRAST [CT] Stat Exams 07/27/23 18:27 Completed CHEST 1 VIEW (PORTABLE) Stat Exams 07/27/23 18:26 Completed Assessment/Plan (1) Abdominal pain Current Visit: Yes Status: Acute Assessment & Plan: 1. NPO 2. Zofran PRN 3. Treat with zosyn for concern for possible infectious process 4. IVF 5. Hold meds, including warfarin. Code(s): R10.9 - UNSPECIFIED ABDOMINAL PAIN Telemedicine Encounter - Telemedicine Encounter Telemedicine Encounter: The entirety of this encounter was performed via Telemedicine"
[2023-07-27] MEDS ORDERED: MORPHINE SULFATE 2 MG INJ ONE (23:47)
[2023-07-27] MEDS: MORPHINE SULFATE 2 MG INJ IV ONE (23:49)
[2023-07-28] MEDS ORDERED: Sodium Chloride 0.9% W/ 20 mEq KCl/LITER 1,000 ML IV ONE ×2 (01:30→01:38)
[2023-07-28] MEDS ORDERED: PIPERACILLIN/TAZOBACTAM IV ONE ×2 (01:37→06:16)
[2023-07-28] MEDS ORDERED: Sodium Chloride 100ML MINI-BAG PLUS 100 ML IV ONE ×2 (01:38→06:17)
[2023-07-28] MEDS: PIPERACILLIN/TAZOBACTAM 3.375 GM in Sodium Chloride 100ML MINI-BAG PLUS 100 ML IV SCH (01:42)
[2023-07-28] MEDS: Sodium Chloride 0.9% W/ 20 mEq KCl/LITER 1,000 ML IV SCH ×2 (01:44→07:54)
[2023-07-28] MEDS: Zofran 4 MG/2 ML VIAL IV PRN (02:56)
[2023-07-28 03:24] LABS: Absolute Neutrophil Ct (ANC) 5.96 x10^3/uL (1.4-6.9); BASOPHIL % 0.3 % (0.0-0.4); Basophil (Absolute #) 0.02 x10^3/uL (0-0.4); Eosinophil (Absolute #) 0 x10^3/uL (0-0.5); Hematocrit 41.5 % (42-50); Hemoglobin 14.2 g/dL (12.5-18.0); IMMATURE GRAN # 0.01 x10^3u/L (0.00-0.03); IMMATURE GRAN % 0.1 % (0.00-0.4); Lymphocyte (Absolute #) 1.06 x10^3/uL (1.0-4.6); Lymphocytes % 13.8 % (24.0-44.0); Mean Cell Volume 94.7 fL (78-100); Mean Corpuscular Hemoglobin 32.4 pg (26-32); Mean Corpuscular Hgb Concent. 34.2 g/dL (32-36); Mean Platelet Volume 10.9 fL (7.5-11.0); Monocyte (Absolute #) 0.64 x10^3/uL (0.0-1.3); Monocytes % 8.3 % (0.0-12.0); Neutrophil % 77.5 % (36.0-66.0); Platelet Count 177 x10^3/uL (150-450); Red Blood Count 4.38 x10^6/uL (4.1-5.6); Red Cell Distribution Width 13.2 % (11.5-14.0); White Blood Count 7.7 x10^3/uL (4.0-10.5)
[2023-07-28 03:38] LABS: ALBUMIN 3.2 g/dL (3.5-5.0); BILIRUBIN,TOTAL 1.1 mg/dL (0.2-1.3); Calcium 8.5 mg/dL (8.4-10.2); Creatinine 1 0.92 mg/dL (0.66-1.25); EST GLOMERULAR FILTRATION RATE 87.3 ML/MIN; Potassium 3.7 mmol/L (3.5-5.1); Total Protein 5.9 g/dL (6.3-8.2)
[2023-07-28 03:44] LABS: PROTIME 70.1 SECONDS (9.4-12.5); PTT 43.5 SECONDS (25.1-36.5)
[2023-07-28 03:52] LABS: INR 7.33 (0.8-3.0)
[2023-07-28] MEDS: Sodium Chloride 0.9% 1000 ML 1,000 ML IV SCH (05:05)
[2023-07-28] MEDS: PIPERACILLIN/TAZOBACTAM 3.375 GM in Sodium Chloride 100ML MINI-BAG PLUS 100 ML IV ONE (07:54)
[2023-07-28] MEDS: MAALOX ES 30 ML UNIT DOSE PO ONE (08:11)
[2023-07-28] MEDS: PROTONIX 40 MG IV IV SCH (08:11)
[2023-07-28] MEDS: Compazine 10 MG/2 ML IV ONE (08:11)
--- NOTE | 2023-07-28 08:20 | PCM.NOTE ---
Date and Time: 07/28/23811 Subjective Assessment: is a 73 year old male with PMHX of CAD, sleep apnea, GERD, anxiety, MD with stent placement. He presented to ER on07/26 with recurrent abdominal pain of LLQand RLQ regions, nausea, vomiting and diarrhea. Describes as dull achy pains. Denies fevers, travel, sick contacts. Was seen in the ED here a few days ago with similar symptoms and treated for dehydration. CT Interpretation: Tele- radiologist Report (Interval dilatation of the jejunum, ileum as well as the ascending and transverse colon. Redemonstration of multiple diverticula in the descending and sigmoid colon with minimal adjacent fat-strandings in the sigmoid suggestive of an early inflammatory process.) Pt c/o today of continued abd pain but above umbilicus that is constant and aching. He states he states he does have a hx of GERD and needs his home meds. Discussed he is NPO and Protonix to be given IV however will give some Maalox now for epigastric pain. Will continue antibiotics, IVF. He dnies CP, SOB. He did begin vomiting this AM and compazine added in addition to zofran. He denies Cp or SOB. - Review of Systems Constitutional: No Fever, No Chills Eyes: No Symptoms Ears, Nose, & Throat: No Symptoms Respiratory: No Cough, No Short Of Breath Cardiac: No Chest Pain, No Edema, No Syncope Abdominal/Gastrointestinal: Abdominal Pain, Nausea, Vomiting, No Diarrhea Genitourinary Symptoms: No Dysuria Musculoskeletal: No Back Pain, No Neck Pain Skin: No Rash Neurological: No Dizziness, No Focal Weakness, No Sensory Changes Psychological: No Symptoms Endocrine: No Symptoms Hematologic/Lymphatic: No Symptoms Immunological/Allergic: No Symptoms Objective Exam General Appearance: mild distress, alert Neurologic Exam: alert, oriented x 3, cooperative, normal mood/affect, nml cerebellar function, sensation nml, No motor deficits Skin Exam: normal color, warm, dry Eye Exam: PERRL, EOMI, eyes nml inspection Ears, Nose, Throat Exam: normal ENT inspection, pharynx normal, moist mucous membranes Neck Exam: normal inspection, non-tender, supple, full range of motion Respiratory Exam: normal breath sounds, lungs clear, No respiratory distress Cardiovascular Exam: regular rate/rhythm, normal heart sounds Gastrointestinal/Abdomen Exam: soft, tenderness (epigastic region), guarding, No mass Extremity Exam: normal inspection, normal range of motion Back Exam: normal inspection, normal range of motion, No CVA tenderness, No vertebral tenderness Male Genitalia Exam: deferred Rectal Exam: deferred Objective Data Vital Signs: Vital Signs - 24 hr Temp Pulse Resp BP BP Pulse Ox 07/28/23 07:03 98.5 F 78 19 143/72 95 07/28/23 04:00 96.4 F 76 24 147/70 96 07/28/23 00:30 97.2 F 73 25 H 144/72 98 07/27/23 23:00 74 21 146/78 96 07/27/23 22:30 78 26 H 147/73 95 07/27/23 22:00 95 H 29 H 139/73 98 07/27/23 21:30 74 22 140/78 98 07/27/23 21:00 75 14 136/68 98 07/27/23 20:30 70 16 128/59 98 07/27/23 20:25 71 17 131/60 98 07/27/23 19:00 67 19 132/67 98 07/27/23 18:40 97 07/27/23 18:30 72 16 117/70 97 07/27/23 18:25 98.2 F 73 18 144/78 97 07/27/23 18:13 75 17 144/78 97 Pain Assessment - Last Documented Pain Intensity 8 Pain Scale Used 0-10 Pain Scale Intake and Output: Intake & Output 07/25/23 07/26/23 07/27/23 07/28/23 11:59 11:59 11:59 11:59 Intake Total 0 Balance 0 Weight 82.3 kg Lab Results: Lab Results-Last 24 Hours 07/27/23 07/27/23 07/27/23 Range/Units 18:33 18:33 18:33 WBC 7.0 (4.0-10.5) x10^3/uL RBC 4.74 (4.1-5.6) x10^6/uL Hgb 15.3 (12.5-18.0) g/dL Hct 45.6 (42-50) % MCV 96.2 (78-100) fL MCH 32.3 H (26-32) pg MCHC 33.6 (32-36) g/dL RDW 13.2 (11.5-14.0) % Plt Count 196 (150-450) x10^3/uL MPV 10.9 (7.5-11.0) fL Gran % 57.2 (36.0-66.0) % Immature Gran % (Auto) 0.3 (0.00-0.4) % Nucleat RBC Rel Count 0.0 (0.00-0.1) % Eos # (Auto) 0.04 (0-0.5) x10^3/uL Immature Gran # (Auto) 0.02 (0.00-0.03) x10^3u/L Absolute Lymphs (auto) 1.72 (1.0-4.6) x10^3/uL Absolute Monos (auto) 1.18 (0.0-1.3) x10^3/uL Absolute Nucleated RBC 0.00 (0.00-0.01) x10^3u/L Lymphocytes % 24.5 (24.0-44.0) % Monocytes % 16.8 H (0.0-12.0) % Eosinophils % 0.6 (0.00-5.0) % Basophils % 0.6 (0.0-0.4) % Absolute Granulocytes 4.02 (1.4-6.9) x10^3/uL Basophils # 0.04 (0-0.4) x10^3/uL PT (9.4-12.5) SECONDS INR (0.8-3.0) APTT (25.1-36.5) SECONDS Sodium 137 (135-145) mmol/L Potassium 3.3 L (3.5-5.1) mmol/L Chloride 102 (98-107) mmol/L Carbon Dioxide 27 (22-30) mmol/L Anion Gap 11.1 (5-15) MEQ/L BUN 23 H (9-20) mg/dL Creatinine 1.05 (0.66-1.25) mg/dL Estimated GFR 74.5 ML/MIN Glucose 123 H (74-106) mg/dL Lactic Acid 1.6 (0.4-2.0) Calcium 8.7 (8.4-10.2) mg/dL Total Bilirubin 0.90 (0.2-1.3) mg/dL AST 73 H (17-59) U/L ALT 85 H (0-50) U/L Alkaline Phosphatase 129 H (38-126) U/L Troponin I (0.000-0.034) ng/mL Serum Total Protein 6.6 (6.3-8.2) g/dL Albumin 3.6 (3.5-5.0) g/dL Amylase (30-110) U/L Lipase 83 (23-300) U/L Monoscreen (NEGATIVE) Influenza Type A Ag (NEGATIVE) Influenza Type B Ag (NEGATIVE) RSV (PCR) (NEGATIVE) SARS-CoV-2 (PCR) (NEGATIVE) Group A Strep Antibody (NEGATIVE) 07/27/23 07/27/23 07/27/23 Range/Units 18:33 18:33 19:00 WBC (4.0-10.5) x10^3/uL RBC (4.1-5.6) x10^6/uL Hgb (12.5-18.0) g/dL Hct (42-50) % MCV (78-100) fL MCH (26-32) pg MCHC (32-36) g/dL RDW (11.5-14.0) % Plt Count (150-450) x10^3/uL MPV (7.5-11.0) fL Gran % (36.0-66.0) % Immature Gran % (Auto) (0.00-0.4) % Nucleat RBC Rel Count (0.00-0.1) % Eos # (Auto) (0-0.5) x10^3/uL Immature Gran # (Auto) (0.00-0.03) x10^3u/L Absolute Lymphs (auto) (1.0-4.6) x10^3/uL Absolute Monos (auto) (0.0-1.3) x10^3/uL Absolute Nucleated RBC (0.00-0.01) x10^3u/L Lymphocytes % (24.0-44.0) % Monocytes % (0.0-12.0) % Eosinophils % (0.00-5.0) % Basophils % (0.0-0.4) % Absolute Granulocytes (1.4-6.9) x10^3/uL Basophils # (0-0.4) x10^3/uL PT 65.7 H (9.4-12.5) SECONDS INR 6.84 H* (0.8-3.0) APTT (25.1-36.5) SECONDS Sodium (135-145) mmol/L Potassium (3.5-5.1) mmol/L Chloride (98-107) mmol/L Carbon Dioxide (22-30) mmol/L Anion Gap (5-15) MEQ/L BUN (9-20) mg/dL Creatinine (0.66-1.25) mg/dL Estimated GFR ML/MIN Glucose (74-106) mg/dL Lactic Acid (0.4-2.0) Calcium (8.4-10.2) mg/dL Total Bilirubin (0.2-1.3) mg/dL AST (17-59) U/L ALT (0-50) U/L Alkaline Phosphatase (38-126) U/L Troponin I < 0.012 (0.000-0.034) ng/mL Serum Total Protein (6.3-8.2) g/dL Albumin (3.5-5.0) g/dL Amylase 79 (30-110) U/L Lipase (23-300) U/L Monoscreen (NEGATIVE) Influenza Type A Ag (NEGATIVE) Influenza Type B Ag (NEGATIVE) RSV (PCR) (NEGATIVE) SARS-CoV-2 (PCR) (NEGATIVE) Group A Strep Antibody (NEGATIVE) 07/27/23 07/27/23 07/27/23 Range/Units 19:00 19:37 19:37 WBC (4.0-10.5) x10^3/uL RBC (4.1-5.6) x10^6/uL Hgb (12.5-18.0) g/dL Hct (42-50) % MCV (78-100) fL MCH (26-32) pg MCHC (32-36) g/dL RDW (11.5-14.0) % Plt Count (150-450) x10^3/uL MPV (7.5-11.0) fL Gran % (36.0-66.0) % Immature Gran % (Auto) (0.00-0.4) % Nucleat RBC Rel Count (0.00-0.1) % Eos # (Auto) (0-0.5) x10^3/uL Immature Gran # (Auto) (0.00-0.03) x10^3u/L Absolute Lymphs (auto) (1.0-4.6) x10^3/uL Absolute Monos (auto) (0.0-1.3) x10^3/uL Absolute Nucleated RBC (0.00-0.01) x10^3u/L Lymphocytes % (24.0-44.0) % Monocytes % (0.0-12.0) % Eosinophils % (0.00-5.0) % Basophils % (0.0-0.4) % Absolute Granulocytes (1.4-6.9) x10^3/uL Basophils # (0-0.4) x10^3/uL PT (9.4-12.5) SECONDS INR (0.8-3.0) APTT (25.1-36.5) SECONDS Sodium (135-145) mmol/L Potassium (3.5-5.1) mmol/L Chloride (98-107) mmol/L Carbon Dioxide (22-30) mmol/L Anion Gap (5-15) MEQ/L BUN (9-20) mg/dL Creatinine (0.66-1.25) mg/dL Estimated GFR ML/MIN Glucose (74-106) mg/dL Lactic Acid (0.4-2.0) Calcium (8.4-10.2) mg/dL Total Bilirubin (0.2-1.3) mg/dL AST (17-59) U/L ALT (0-50) U/L Alkaline Phosphatase (38-126) U/L Troponin I (0.000-0.034) ng/mL Serum Total Protein (6.3-8.2) g/dL Albumin (3.5-5.0) g/dL Amylase (30-110) U/L Lipase (23-300) U/L Monoscreen NEGATIVE (NEGATIVE) Influenza Type A Ag NEGATIVE (NEGATIVE) Influenza Type B Ag NEGATIVE (NEGATIVE) RSV (PCR) NEGATIVE (NEGATIVE) SARS-CoV-2 (PCR) NEGATIVE (NEGATIVE) Group A Strep Antibody NOT DETECTED (NEGATIVE) 07/27/23 07/28/23 07/28/23 Range/Units 22:30 03:20 03:20 WBC 7.7 (4.0-10.5) x10^3/uL RBC 4.38 (4.1-5.6) x10^6/uL Hgb 14.2 (12.5-18.0) g/dL Hct 41.5 L (42-50) % MCV 94.7 (78-100) fL MCH 32.4 H (26-32) pg MCHC 34.2 (32-36) g/dL RDW 13.2 (11.5-14.0) % Plt Count 177 (150-450) x10^3/uL MPV 10.9 (7.5-11.0) fL Gran % 77.5 H (36.0-66.0) % Immature Gran % (Auto) 0.1 (0.00-0.4) % Nucleat RBC Rel Count 0.0 (0.00-0.1) % Eos # (Auto) 0 (0-0.5) x10^3/uL Immature Gran # (Auto) 0.01 (0.00-0.03) x10^3u/L Absolute Lymphs (auto) 1.06 (1.0-4.6) x10^3/uL Absolute Monos (auto) 0.64 (0.0-1.3) x10^3/uL Absolute Nucleated RBC 0.00 (0.00-0.01) x10^3u/L Lymphocytes % 13.8 L (24.0-44.0) % Monocytes % 8.3 (0.0-12.0) % Eosinophils % 0.0 (0.00-5.0) % Basophils % 0.3 (0.0-0.4) % Absolute Granulocytes 5.96 (1.4-6.9) x10^3/uL Basophils # 0.02 (0-0.4) x10^3/uL PT (9.4-12.5) SECONDS INR (0.8-3.0) APTT (25.1-36.5) SECONDS Sodium 136 (135-145) mmol/L Potassium 3.7 (3.5-5.1) mmol/L Chloride 103 (98-107) mmol/L Carbon Dioxide 25 (22-30) mmol/L Anion Gap 11.0 (5-15) MEQ/L BUN 23 H (9-20) mg/dL Creatinine 0.92 (0.66-1.25) mg/dL Estimated GFR 87.3 ML/MIN Glucose 150 H (74-106) mg/dL Lactic Acid (0.4-2.0) Calcium 8.5 (8.4-10.2) mg/dL Total Bilirubin 1.10 (0.2-1.3) mg/dL AST 64 H (17-59) U/L ALT 77 H (0-50) U/L Alkaline Phosphatase 119 (38-126) U/L Troponin I < 0.012 (0.000-0.034) ng/mL Serum Total Protein 5.9 L (6.3-8.2) g/dL Albumin 3.2 L (3.5-5.0) g/dL Amylase (30-110) U/L Lipase (23-300) U/L Monoscreen (NEGATIVE) Influenza Type A Ag (NEGATIVE) Influenza Type B Ag (NEGATIVE) RSV (PCR) (NEGATIVE) SARS-CoV-2 (PCR) (NEGATIVE) Group A Strep Antibody (NEGATIVE) 07/28/23 Range/Units 03:20 WBC (4.0-10.5) x10^3/uL RBC (4.1-5.6) x10^6/uL Hgb (12.5-18.0) g/dL Hct (42-50) % MCV (78-100) fL MCH (26-32) pg MCHC (32-36) g/dL RDW (11.5-14.0) % Plt Count (150-450) x10^3/uL MPV (7.5-11.0) fL Gran % (36.0-66.0) % Immature Gran % (Auto) (0.00-0.4) % Nucleat RBC Rel Count (0.00-0.1) % Eos # (Auto) (0-0.5) x10^3/uL Immature Gran # (Auto) (0.00-0.03) x10^3u/L Absolute Lymphs (auto) (1.0-4.6) x10^3/uL Absolute Monos (auto) (0.0-1.3) x10^3/uL Absolute Nucleated RBC (0.00-0.01) x10^3u/L Lymphocytes % (24.0-44.0) % Monocytes % (0.0-12.0) % Eosinophils % (0.00-5.0) % Basophils % (0.0-0.4) % Absolute Granulocytes (1.4-6.9) x10^3/uL Basophils # (0-0.4) x10^3/uL PT 70.1 H (9.4-12.5) SECONDS INR 7.33 H* (0.8-3.0) APTT 43.5 H (25.1-36.5) SECONDS Sodium (135-145) mmol/L Potassium (3.5-5.1) mmol/L Chloride (98-107) mmol/L Carbon Dioxide (22-30) mmol/L Anion Gap (5-15) MEQ/L BUN (9-20) mg/dL Creatinine (0.66-1.25) mg/dL Estimated GFR ML/MIN Glucose (74-106) mg/dL Lactic Acid (0.4-2.0) Calcium (8.4-10.2) mg/dL Total Bilirubin (0.2-1.3) mg/dL AST (17-59) U/L ALT (0-50) U/L Alkaline Phosphatase (38-126) U/L Troponin I (0.000-0.034) ng/mL Serum Total Protein (6.3-8.2) g/dL Albumin (3.5-5.0) g/dL Amylase (30-110) U/L Lipase (23-300) U/L Monoscreen (NEGATIVE) Influenza Type A Ag (NEGATIVE) Influenza Type B Ag (NEGATIVE) RSV (PCR) (NEGATIVE) SARS-CoV-2 (PCR) (NEGATIVE) Group A Strep Antibody (NEGATIVE) Radiology Exams: Radiology Procedures Category Date Time Status ABDOMEN AND PELVIS W CONTRAST [CT] Stat Exams 07/27/23 18:27 Completed CHEST 1 VIEW (PORTABLE) Stat Exams 07/27/23 18:26 Completed Assessment/Plan (1) Abdominal pain Current Visit: Yes Status: Acute Assessment & Plan: - 2:2 Diverticulitis?, GERD -NPO - TELE - IVF - Compazine and Zofran PRN - Treat with zosyn for concern for possible infectious process as seen on CT - Pt reports no hx of diverticulitis - IVF - Hold meds, including warfarin - CT abd pelvis: IMPRESSION: 1. Interval dilatation of the jejunum, ileum as well as the ascending and transverse colon. The small bowel measures up to 3.7 cm. The colon measures up to 6.5 cm. No transition zone noted. The primary consideration is ileus. Follow-up is suggested. 2. Redemonstration of multiple diverticula in the descending and sigmoid colon with minimal adjacent fat-strandings in the sigmoid, suggestive of an early inflammatory process. 3. Rest of the findings are unchanged from the previous study dated 07/24/2023. Code(s): R10.9 - UNSPECIFIED ABDOMINAL PAIN (2) Diarrhea Current Visit: Yes Status: Acute Assessment & Plan: - resolved Code(s): R19.7 - DIARRHEA, UNSPECIFIED (3) Diverticulitis Current Visit: Yes Status: Acute Assessment & Plan: - Zosyn - IVF - Zofran - see above CT results Code(s): K57.92 - DVTRCLI OF INTEST, PART UNSP, W/O PERF OR ABSCESS W/O BLEED (4) Nausea and vomiting Current Visit: Yes Status: Acute Assessment & Plan: - Zofran and compazine PRN Code(s): R11.2 - NAUSEA WITH VOMITING, UNSPECIFIED (5) GERD (gastroesophageal reflux disease) Current Visit: Yes Status: Chronic Assessment & Plan: - Protonix IV - Maalox PO x1 now d/t GERD sxs Code(s): K21.9 - GASTRO-ESOPHAGEAL REFLUX DISEASE WITHOUT ESOPHAGITIS (6) Anticoagulated on Coumadin Current Visit: Yes Status: Acute Assessment & Plan: - For hx a-fib - Coumadin held for now- pharmacy to dose - INR 7.33- will give vitamin K 5mg po now VTE: Coumadin held for now, will start SCD's. PPI: Protonix Next of KIN: Spouse, Bertha Barnes [phone] D/C plan: 1-2 days Code status: Full Code(s): Z79.01 - SENIOR CARE (CURRENT) USE OF ANTICOAGULANTS
[2023-07-28] MEDS: Vitamin K 10 MG/ML PO ONE (10:12)
[2023-07-28] MEDS: PHARMACY DOSING REQUEST MC ONE (10:17)
[2023-07-28] MEDS: PIPERACILLIN/TAZOBACTAM 3.375 GM in Dextrose 5%/Water IV Soln. 100ML PLUS BAG 100 ML IV SCH (12:53)
[2023-07-28 13:09] LABS: Appearance Clear (Clear); Bacteria None Seen /HPF (None Seen); Bilirubin Negative (Negative); Blood Negative (Negative); Epithelial Cells None Seen /HPF (None Seen); Glucose, Urine Negative (Negative); Hyaline Casts NONE SEEN /LPF (0-2); Ketones 15 (Negative); Leukocyte Esterase Negative (Negative); Nitrite Negative (Negative); Ph 5.5 (4.6-8.0); Protein,Urine Dip 30 (Negative); RBC 0-2 /HPF (0-5); Specific Gravity >=1.030 (1.005-1.030); WBC 0-2 /HPF (0-5)
[2023-07-28 13:12] LABS: ADD URINE CULTURE? NO (NO)
[2023-07-28] MEDS: Tums EX 750 MG PO PRN (15:02)
--- NOTE | 2023-07-29 05:14 | PCM.NOTE ---
Date and Time: 07/29/23509 Subjective Assessment: 73 year old male with a pmhx of CAD, sleep apnea,AFIB (on coumadin),GERD, anxiety, [place] with stent placement admitted 07/27/23 with recurrent abdominal pain of the LLQ and RLQ initially, now epigastric, nausea, vomiting, and diarrhea. CT of the abdomen/pelvis demonstrating possible ileus and early inflammatory process. IP treatment with Zosyn as well as supportive therapies including bowel rest, anti-emetics, IVF, Maalox, and protonix. Diarrhea has resolved. INR has also been supratherapeutic, vitamin K given 07/28/23, now stabilizing, coumadin has been resumed. 07/29/23: Met with patient bedside. No overnight events noted. Nausea/vomiting/diarrhea have resolved. Of note, bradley placed 07/28/23 for urinary retention, we have discontinued the bradley at this time and patient has yet to void. Potassium level is low. Plan to replenish potassium. Patient may discharge tomorrow with bradley catheter, he will need urology follow up if this is the case. - Review of Systems Constitutional: No Symptoms Eyes: No Symptoms Ears, Nose, & Throat: No Symptoms Respiratory: No Symptoms Cardiac: No Symptoms Abdominal/Gastrointestinal: No Symptoms Genitourinary Symptoms: Urinary Retention Musculoskeletal: No Symptoms Skin: No Symptoms Neurological: No Symptoms Psychological: No Symptoms Endocrine: No Symptoms Hematologic/Lymphatic: No Symptoms Immunological/Allergic: No Symptoms Objective Exam General Appearance: no apparent distress Neurologic Exam: alert, oriented x 3, cooperative Skin Exam: normal color Eye Exam: PERRL Ears, Nose, Throat Exam: normal ENT inspection Neck Exam: normal inspection Respiratory Exam: normal breath sounds, lungs clear Cardiovascular Exam: regular rate/rhythm, normal heart sounds Gastrointestinal/Abdomen Exam: soft, normal bowel sounds Extremity Exam: normal inspection Back Exam: normal inspection Male Genitalia Exam: deferred Rectal Exam: deferred Objective Data Vital Signs: Vital Signs - 24 hr Temp Pulse Resp BP Pulse Ox 07/29/23 04:00 98.4 F 78 21 131/66 94 L 07/29/23 00:00 100.6 F 76 20 134/70 95 07/28/23 20:00 99.2 F 78 24 143/71 95 07/28/23 15:00 98 F 82 16 145/77 93 L 07/28/23 11:30 98.3 F 84 18 143/70 93 L 07/28/23 07:03 98.5 F 78 19 143/72 95 Pain Assessment - Last Documented Pain Intensity 0 Pain Scale Used 0-10 Pain Scale Intake and Output: Intake & Output 07/26/23 07/27/23 07/28/23 07/29/23 11:59 11:59 11:59 11:59 Intake Total 0 1548 Output Total 1200 Balance 0 348 Weight 82.3 kg Lab Results: Lab Results-Last 24 Hours 07/28/23 Range/Units 12:55 Urine Color Dark Yellow (Yellow) Urine Appearance Clear (Clear) Urine pH 5.5 (4.6-8.0) Ur Specific [place] >=1.030 A (1.005-1.030) Urine Protein 30 (Negative) Urine Glucose (UA) Negative (Negative) mg/dL Urine Ketones 15 A (Negative) Urine Blood Negative (Negative) Urine Nitrite Negative (Negative) Urine Bilirubin Negative (Negative) Urine Urobilinogen 1.0 A (0.2) mg/dL Ur Leukocyte Esterase Negative (Negative) U Hyaline Cast (Auto) NONE SEEN (0-2) /LPF Urine Microscopic RBC 0-2 (0-5) /HPF Urine Microscopic WBC 0-2 (0-5) /HPF Ur Epithelial Cells None Seen (None Seen) /HPF Urine Bacteria None Seen (None Seen) /HPF Urine Culture Reflexed NO (NO) Radiology Exams: Radiology Procedures Category Date Time Status ABDOMEN AND PELVIS W CONTRAST [CT] Stat Exams 07/27/23 18:27 Completed CHEST 1 VIEW (PORTABLE) Stat Exams 07/27/23 18:26 Completed Assessment/Plan (1) Diverticulitis Current Visit: Yes Status: Acute Assessment & Plan: - Zosyn changed to Augmentin -diarrhea, nausea, vomiting have resolved, resume diet as tolerated - IVF- d/c - Zofran - CT with Redemonstration of multiple diverticula in the descending and sigmoid colon with minimal adjacent fat-strandings in the sigmoid, suggestive of an early inflammatory process. Code(s): K57.92 - DVTRCLI OF INTEST, PART UNSP, W/O PERF OR ABSCESS W/O BLEED (2) Abdominal pain Current Visit: Yes Status: Acute Assessment & Plan: - 2:2 Diverticulitis?, GERD -NPO - TELE - IVF - Compazine and Zofran PRN - Treat with zosyn for concern for possible infectious process as seen on CT - Pt reports no hx of diverticulitis - IVF - Hold meds, including warfarin - CT abd pelvis: IMPRESSION: 1. Interval dilatation of the jejunum, ileum as well as the ascending and transverse colon. The small bowel measures up to 3.7 cm. The colon measures up to 6.5 cm. No transition zone noted. The primary consideration is ileus. Follow-up is suggested. 2. Redemonstration of multiple diverticula in the descending and sigmoid colon with minimal adjacent fat-strandings in the sigmoid, suggestive of an early inflammatory process. 3. Rest of the findings are unchanged from the previous study dated 07/24/2023. 07/29/23: -resolved Code(s): R10.9 - UNSPECIFIED ABDOMINAL PAIN (3) Anticoagulated on Coumadin Current Visit: Yes Status: Acute Assessment & Plan: - For hx a-fib - Coumadin held for now- pharmacy to dose - INR 7.33- will give vitamin K 5mg po now 07/29/23: -INR at 1.66, coumadin resumed at 10mg today, then he will take 7.5mg MWF, then 5mg [id number] Code(s): Z79.01 - EDUCATION DEPARTMENT REGISTRAR (CURRENT) USE OF ANTICOAGULANTS (4) Diarrhea Current Visit: Yes Status: Acute Assessment & Plan: - resolved Code(s): R19.7 - DIARRHEA, UNSPECIFIED (5) Nausea and vomiting Current Visit: Yes Status: Acute Assessment & Plan: - Zofran and compazine PRN Code(s): R11.2 - NAUSEA WITH VOMITING, UNSPECIFIED (6) GERD (gastroesophageal reflux disease) Current Visit: Yes Status: Chronic Assessment & Plan: - Protonix IV - Maalox PO x1 now d/t GERD sxs VTE: Coumadin held for now, will start SCD's. PPI: Protonix Next of KIN: Spouse, Bertha Barnes [phone] D/C plan: 1-2 days Code status: Full Code(s): K21.9 - GASTRO-ESOPHAGEAL REFLUX DISEASE WITHOUT ESOPHAGITIS
[2023-07-29 05:18] LABS: Hematocrit 40.2 % (42-50); Hemoglobin 13.4 g/dL (12.5-18.0); Mean Cell Volume 95.9 fL (78-100); Mean Corpuscular Hgb Concent. 33.3 g/dL (32-36); Mean Platelet Volume 10.8 fL (7.5-11.0); Platelet Count 165 x10^3/uL (150-450); Red Blood Count 4.19 x10^6/uL (4.1-5.6); Red Cell Distribution Width 13.1 % (11.5-14.0); White Blood Count 8.3 x10^3/uL (4.0-10.5)
[2023-07-29 05:33] LABS: INR 1.66 (0.8-3.0); PROTIME 17.5 SECONDS (9.4-12.5)
[2023-07-29 05:34] LABS: ALBUMIN 2.4 g/dL (3.5-5.0); BILIRUBIN,TOTAL 1.6 mg/dL (0.2-1.3); Calcium 7.5 mg/dL (8.4-10.2); Creatinine 1 0.81 mg/dL (0.66-1.25); EST GLOMERULAR FILTRATION RATE 92.5 ML/MIN; Potassium 3.1 mmol/L (3.5-5.1); Total Protein 4.7 g/dL (6.3-8.2)
[2023-07-29] MEDS ORDERED: ZOFRAN ODT 4 MG PO PRN (10:43)
[2023-07-29] MEDS ORDERED: Nitrostat 0.4 MG Tablet SL PRN (10:43)
[2023-07-29] MEDS ORDERED: VENTOLIN COMMON CANISTER IH PRN (10:43)
[2023-07-29] MEDS: Protonix 20MG Tablet PO SCH (12:11)
[2023-07-29] MEDS: BUSPAR 5 MG PO SCH (12:12)
[2023-07-29] MEDS: Zestril 5 MG PO SCH (12:12)
[2023-07-29] MEDS: CLARITIN 10 MG PO SCH (12:12)
[2023-07-29] MEDS: VITAMIN D PO SCH (12:12)
[2023-07-29] MEDS: Klor Con PO ONE (12:12)
[2023-07-29] MEDS: THERAGRAN MULTIVITAMIN PO SCH (12:12)
[2023-07-29] MEDS: Zinc Gluconate 50 MG PO SCH (12:13)
[2023-07-29] MEDS: Vitamin C 500 MG PO SCH (12:13)
[2023-07-29] MEDS: Wellbutrin XL 150 MG PO SCH (12:13)
[2023-07-29] MEDS: Cardizem CD PO SCH (12:13)
[2023-07-29] MEDS: Augmentin 875-125 Tablet PO SCH (12:35)
[2023-07-29] MEDS ORDERED: Protonix 20MG Tablet PO SCH (15:33)
[2023-07-29] MEDS: Klor Con PO SCH (18:34)
[2023-07-29] MEDS: COUMADIN PO SCH (18:34)
[2023-07-29] MEDS: TYLENOL 325 MG PO PRN (20:27)
[2023-07-29] MEDS: ZOCOR 20MG PO SCH (21:30)
[2023-07-29] MEDS ORDERED: LIPITOR 40MG PO SCH (22:00)
[2023-07-30 04:48] LABS: Absolute Neutrophil Ct (ANC) 4.66 x10^3/uL (1.4-6.9); BASOPHIL % 0.6 % (0.0-0.4); Basophil (Absolute #) 0.05 x10^3/uL (0-0.4); Eosinophil % 2.2 % (0.00-5.0); Eosinophil (Absolute #) 0.18 x10^3/uL (0-0.5); Hematocrit 41.1 % (42-50); Hemoglobin 13.9 g/dL (12.5-18.0); IMMATURE GRAN # 0.02 x10^3u/L (0.00-0.03); IMMATURE GRAN % 0.2 % (0.00-0.4); Lymphocyte (Absolute #) 2.34 x10^3/uL (1.0-4.6); Lymphocytes % 28.7 % (24.0-44.0); Mean Corpuscular Hemoglobin 32.5 pg (26-32); Mean Corpuscular Hgb Concent. 33.8 g/dL (32-36); Mean Platelet Volume 10.8 fL (7.5-11.0); Monocyte (Absolute #) 0.89 x10^3/uL (0.0-1.3); Monocytes % 10.9 % (0.0-12.0); Neutrophil % 57.4 % (36.0-66.0); Platelet Count 165 x10^3/uL (150-450); Red Blood Count 4.28 x10^6/uL (4.1-5.6); Red Cell Distribution Width 12.8 % (11.5-14.0); White Blood Count 8.1 x10^3/uL (4.0-10.5)
[2023-07-30 05:18] LABS: ANION GAP 6.8 MEQ/L (5-15); BILIRUBIN,TOTAL 1.3 mg/dL (0.2-1.3); Calcium 8.2 mg/dL (8.4-10.2); Creatinine 1 0.79 mg/dL (0.66-1.25); EST GLOMERULAR FILTRATION RATE 93.2 ML/MIN; Total Protein 5.7 g/dL (6.3-8.2)
[2023-07-30 06:42] VITALS: BP 132/62; RESP 14; TEMP 96.9
[2023-07-30 07:35] LABS: INR 1.4 (0.8-3.0); PROTIME 14.9 SECONDS (9.4-12.5)
[2023-07-30 08:09] VITALS: PULSE 71; O2SAT 95
--- NOTE | 2023-07-30 09:18 | PCM.DS ---
Discharge Summary Date of Admission: 07/27/23 23:41 Date of Discharge: 07/30/23 Admitting Physician: LUCIANA QIU MD Primary Care Provider: JOHANN HURTADO DO Allergies Allergies hydrocodone [From [facility]] Allergy (Verified 07/27/23 18:16) Vomiting Hospital Summary - Hospital Course Hospital Course: 73 year old male with a pmhx of CAD, sleep apnea,AFIB (on coumadin),GERD, anxiety, VT with stent placement admitted 07/27/23 with recurrent abdominal pain of the LLQ and RLQ initially, now epigastric, nausea, vomiting, and diarrhea. CT of the abdomen/pelvis demonstrating possible ileus and early inflammatory process. IP treatment with Zosyn as well as supportive therapies including bowel rest, anti-emetics, IVF, Maalox, and protonix. Diarrhea has resolved. No further episodes of abdominal pain. Able to tolerate a regular diet. INR has also been s upratherapeutic, vitamin K given 07/28/23, now stabilizing, coumadin has been resumed, [facility]. Patient did have urinary retention requiring a bradley cath. Bradley Cath was removed 07/29/23, patient has been able to urinate with PVR < 30. He does take flomax at home, he will continue this. Discharge Note New Diagnosis: Diverticulitis New Medications:Augmentin Follow Up: PCP/Urology Latest Assessment & Plan (1) Diverticulitis Current Visit: Yes Status: Acute Assessment & Plan: - Zosyn changed to Augmentin -diarrhea, nausea, vomiting have resolved, resume diet as tolerated - IVF- d/c - Zofran - CT with Redemonstration of multiple diverticula in the descending and sigmoid colon with minimal adjacent fat-strandings in the sigmoid, suggestive of an early inflammatory process. Code(s): K57.92 - DVTRCLI OF INTEST, PART UNSP, W/O PERF OR ABSCESS W/O BLEED (2) Abdominal pain Current Visit: Yes Status: Acute Assessment & Plan: - 2:2 Diverticulitis?, GERD -NPO - TELE - IVF - Compazine and Zofran PRN - Treat with zosyn for concern for possible infectious process as seen on CT - Pt reports no hx of diverticulitis - IVF - Hold meds, including warfarin - CT abd pelvis: IMPRESSION: 1. Interval dilatation of the jejunum, ileum as well as the ascending and transverse colon. The small bowel measures up to 3.7 cm. The colon measures up to 6.5 cm. No transition zone noted. The primary consideration is ileus. Follow-up is suggested. 2. Redemonstration of multiple diverticula in the descending and sigmoid colon with minimal adjacent fat-strandings in the sigmoid, suggestive of an early inflammatory process. 3. Rest of the findings are unchanged from the previous study dated 07/24/2023. 07/29/23: -resolved Code(s): R10.9 - UNSPECIFIED ABDOMINAL PAIN (3) Anticoagulated on Coumadin Current Visit: Yes Status: Acute Assessment & Plan: - For hx a-fib - Coumadin held for now- pharmacy to dose - INR 7.33- will give vitamin K 5mg po now 07/29/23: -INR at 1.66, coumadin resumed at 10mg today, then he will take 7.5mg MWF, then 5mg TTHSASU Code(s): Z79.01 - [employer]LL[employer] (CURRENT) USE OF ANTICOAGULANTS (4) Diarrhea Current Visit: Yes Status: Acute Assessment & Plan: - resolved Code(s): R19.7 - DIARRHEA, UNSPECIFIED (5) Nausea and vomiting Current Visit: Yes Status: Acute Assessment & Plan: - Zofran and compazine PRN Code(s): R11.2 - NAUSEA WITH VOMITING, UNSPECIFIED (6) GERD (gastroesophageal reflux disease) Current Visit: Yes Status: Chronic Assessment & Plan: - Protonix IV - Maalox PO x1 now d/t GERD sxs (7) urinary Retention -F/C placed with 900mls out, later d/c'd, patient able to urinate normal amounts without hesitency, this has been an issue in the past for the patient, he was placed on Flomax, will set him up with urology for OP evaluation I spent 35 minutes [id number] with the patient on the day of discharge performing discharge exam, discussing hospital stay and discharge instructions with patient and caregivers, preparation of discharge records, prescriptions & referral forms and addressing any questions/concerns the patient had as documented above. - Vitals & Intake/Output Vital Signs: Vital Signs Temperature 96.9 F 04/02/24 06:41 Pulse Rate 71 07/30/23 08:07 Respiratory Rate 14 07/30/23 08:07 Blood Pressure 132/62 07/30/23 06:41 O2 Sat by Pulse Oximetry 95 07/30/23 08:09 Intake & Output: Intake & Output 07/27/23 07/28/23 07/29/23 07/30/23 11:59 11:59 11:59 11:59 Intake Total 0 3162 1020 Output Total 2400 650 Balance 0 762 370 Weight 82.3 kg 80.8 kg 81.3 kg - Lab Result Diagrams: 07/30/23 04:36 07/30/23 04:36 Lab Results-Last 24 Hrs: Lab Results-Last 24 Hours 07/29/23 07/29/23 07/29/23 Range/Units 14:35 18:40 22:40 WBC (4.0-10.5) x10^3/uL RBC (4.1-5.6) x10^6/uL Hgb (12.5-18.0) g/dL Hct (42-50) % MCV (78-100) fL MCH (26-32) pg MCHC (32-36) g/dL RDW (11.5-14.0) % Plt Count (150-450) x10^3/uL MPV (7.5-11.0) fL Gran % (36.0-66.0) % Immature Gran % (Auto) (0.00-0.4) % Nucleat RBC Rel Count (0.00-0.1) % Eos # (Auto) (0-0.5) x10^3/uL Immature Gran # (Auto) (0.00-0.03) x10^3u/L Absolute Lymphs (auto) (1.0-4.6) x10^3/uL Absolute Monos (auto) (0.0-1.3) x10^3/uL Absolute Nucleated RBC (0.00-0.01) x10^3u/L Lymphocytes % (24.0-44.0) % Monocytes % (0.0-12.0) % Eosinophils % (0.00-5.0) % Basophils % (0.0-0.4) % Absolute Granulocytes (1.4-6.9) x10^3/uL Basophils # (0-0.4) x10^3/uL PT (9.4-12.5) SECONDS INR (0.8-3.0) Sodium (135-145) mmol/L Potassium 3.2 L 3.5 3.5 (3.5-5.1) mmol/L Chloride (98-107) mmol/L Carbon Dioxide (22-30) mmol/L Anion Gap (5-15) MEQ/L BUN (9-20) mg/dL Creatinine (0.66-1.25) mg/dL Estimated GFR ML/MIN Glucose (74-106) mg/dL Calcium (8.4-10.2) mg/dL Magnesium (1.6-2.3) mg/dL Total Bilirubin (0.2-1.3) mg/dL AST (17-59) U/L ALT (0-50) U/L Alkaline Phosphatase (38-126) U/L Serum Total Protein (6.3-8.2) g/dL Albumin (3.5-5.0) g/dL 07/30/23 07/30/23 07/30/23 Range/Units 04:36 04:36 04:36 WBC 8.1 (4.0-10.5) x10^3/uL RBC 4.28 (4.1-5.6) x10^6/uL Hgb 13.9 (12.5-18.0) g/dL Hct 41.1 L (42-50) % MCV 96.0 (78-100) fL MCH 32.5 H (26-32) pg MCHC 33.8 (32-36) g/dL RDW 12.8 (11.5-14.0) % Plt Count 165 (150-450) x10^3/uL MPV 10.8 (7.5-11.0) fL Gran % 57.4 (36.0-66.0) % Immature Gran % (Auto) 0.2 (0.00-0.4) % Nucleat RBC Rel Count 0.0 (0.00-0.1) % Eos # (Auto) 0.18 (0-0.5) x10^3/uL Immature Gran # (Auto) 0.02 (0.00-0.03) x10^3u/L Absolute Lymphs (auto) 2.34 (1.0-4.6) x10^3/uL Absolute Monos (auto) 0.89 (0.0-1.3) x10^3/uL Absolute Nucleated RBC 0.00 (0.00-0.01) x10^3u/L Lymphocytes % 28.7 (24.0-44.0) % Monocytes % 10.9 (0.0-12.0) % Eosinophils % 2.2 (0.00-5.0) % Basophils % 0.6 (0.0-0.4) % Absolute Granulocytes 4.66 (1.4-6.9) x10^3/uL Basophils # 0.05 (0-0.4) x10^3/uL PT (9.4-12.5) SECONDS INR (0.8-3.0) Sodium 136 (135-145) mmol/L Potassium 4.0 (3.5-5.1) mmol/L Chloride 105 (98-107) mmol/L Carbon Dioxide 28 (22-30) mmol/L Anion Gap 6.8 (5-15) MEQ/L BUN 13 (9-20) mg/dL Creatinine 0.79 (0.66-1.25) mg/dL Estimated GFR 93.2 ML/MIN Glucose 83 (74-106) mg/dL Calcium 8.2 L (8.4-10.2) mg/dL Magnesium 2.1 (1.6-2.3) mg/dL Total Bilirubin 1.30 (0.2-1.3) mg/dL AST 45 (17-59) U/L ALT 48 (0-50) U/L Alkaline Phosphatase 96 (38-126) U/L Serum Total Protein 5.7 L (6.3-8.2) g/dL Albumin 3.0 L (3.5-5.0) g/dL 07/30/23 Range/Units 07:11 WBC (4.0-10.5) x10^3/uL RBC (4.1-5.6) x10^6/uL Hgb (12.5-18.0) g/dL Hct (42-50) % MCV (78-100) fL MCH (26-32) pg MCHC (32-36) g/dL RDW (11.5-14.0) % Plt Count (150-450) x10^3/uL MPV (7.5-11.0) fL Gran % (36.0-66.0) % Immature Gran % (Auto) (0.00-0.4) % Nucleat RBC Rel Count (0.00-0.1) % Eos # (Auto) (0-0.5) x10^3/uL Immature Gran # (Auto) (0.00-0.03) x10^3u/L Absolute Lymphs (auto) (1.0-4.6) x10^3/uL Absolute Monos (auto) (0.0-1.3) x10^3/uL Absolute Nucleated RBC (0.00-0.01) x10^3u/L Lymphocytes % (24.0-44.0) % Monocytes % (0.0-12.0) % Eosinophils % (0.00-5.0) % Basophils % (0.0-0.4) % Absolute Granulocytes (1.4-6.9) x10^3/uL Basophils # (0-0.4) x10^3/uL PT 14.9 H (9.4-12.5) SECONDS INR 1.40 (0.8-3.0) Sodium (135-145) mmol/L Potassium (3.5-5.1) mmol/L Chloride (98-107) mmol/L Carbon Dioxide (22-30) mmol/L Anion Gap (5-15) MEQ/L BUN (9-20) mg/dL Creatinine (0.66-1.25) mg/dL Estimated GFR ML/MIN Glucose (74-106) mg/dL Calcium (8.4-10.2) mg/dL Magnesium (1.6-2.3) mg/dL Total Bilirubin (0.2-1.3) mg/dL AST (17-59) U/L ALT (0-50) U/L Alkaline Phosphatase (38-126) U/L Serum Total Protein (6.3-8.2) g/dL Albumin (3.5-5.0) g/dL - Procedures and Test Procedures and Tests throughout Hospitalization: Therapy Orders & Screens 07/28/23 01:42 BiPap/CPAP ROUTINE Comment: Diagnosis: Nausea, vomiting 07/29/23 13:23 Respiratory Therapy Assessment DAILY Comment: Diagnosis: Nausea, vomiting Discharge Exam General Appearance: no apparent distress Neurologic Exam: alert, oriented x 3, cooperative Eye Exam: PERRL Ears, Nose, Throat Exam: normal ENT inspection Neck Exam: normal inspection Respiratory Exam: normal breath sounds, lungs clear Cardiovascular Exam: regular rate/rhythm, normal heart sounds Gastrointestinal/Abdomen Exam: soft, normal bowel sounds Male Genitalia Exam: deferred Rectal Exam: deferred Back Exam: normal inspection Extremity Exam: normal inspection Skin Exam: normal color Final Diagnosis/Problem List - Final Discharge Diagnosis/Problem (1) Diverticulitis Current Visit: Yes Status: Acute Code(s): K57.92 - DVTRCLI OF INTEST, PART UNSP, W/O PERF OR ABSCESS W/O BLEED (2) Abdominal pain Current Visit: Yes Status: Resolved Code(s): R10.9 - UNSPECIFIED ABDOMINAL PAIN (3) Anticoagulated on Coumadin Current Visit: Yes Status: Chronic Code(s): Z79.01 - PENITENTIARY (CURRENT) USE OF ANTICOAGULANTS (4) Diarrhea Current Visit: Yes Status: Resolved Code(s): R19.7 - DIARRHEA, UNSPECIFIED (5) Nausea and vomiting Current Visit: Yes Status: Resolved Code(s): R11.2 - NAUSEA WITH VOMITING, UNSPECIFIED (6) GERD (gastroesophageal reflux disease) Current Visit: Yes Status: Chronic Code(s): K21.9 - GASTRO-ESOPHAGEAL REFLUX DISEASE WITHOUT ESOPHAGITIS - Discharge Disposition: Home, Self-Care Condition: Stable Prescriptions: New Amox Tr/Potass Clav. 875 mg [Augmentin 875-125 Tablet] 875 mg PO Q12H 9 Days #18 tablet Continue Tamsulosin HCl 0.4 mg [Flomax 0.4 MG] 0.4 mg PO HS Nitroglycerin 0.4 mg Tablet [Nitrostat 0.4 MG Tablet] 0.4 mg SL UD PRN PRN Reason: Chest Pain Buspirone HCl [Buspar] 5 mg PO BID dilTIAZem HCL [Diltiazem 24Hr ER] 180 mg PO DAILY Omeprazole 10 mg PO DAILY lisinopriL [Lisinopril] 2.5 mg PO DAILY Warfarin Sodium 5 mg PO MOWEFR buPROPion HCL [Wellbutrin Xl] 300 mg PO DAILY Zinc Gluconate [Zinc] 50 mg PO DAILY Loratadine 10 mg [Claritin 10 mg] 10 mg PO DAILY Cholecalciferol (Vitamin D3) [Vitamin D3] 2,000 unit PO DAILY Ascorbate Calcium [Vitamin C] 500 mg PO DAILY Warfarin Sodium 7.5 mg PO SUTUTHSA 60 Days #60 tablet Albuterol Common Canister [Ventolin Common Canister] 2 puff IH Q4-6HPRN PRN PRN Reason: Shortness Of Breath Multivitamin 1 each PO DAILY Atorvastatin Calcium 40 mg PO HS Ondansetron ODT 4 MG [Zofran Odt 4 mg] 4 mg PO Q6H PRN PRN #10 tablet PRN Reason: Vomiting Follow up with: PIERO ESCOBAR [COURTESY STAFF] - JOHANN HURTADO DO [Primary Care Provider] - 1 Week
[2023-07-30] MEDS ORDERED: NON-FORMULARY ITEM (Zinc Gluconate 50 MG Tablet) PO SCH (10:00)
[2023-07-30] MEDS ORDERED: NON-FORMULARY ITEM (Omeprazole [Omeprazole] 10 MG Capsule.Dr) PO SCH (10:00)
[2023-07-30] MEDS ORDERED: ASCORBATE CALCIUM 500 MG PO SCH (10:00)
[2023-07-30] MEDS ORDERED: NON-FORMULARY ITEM (Cholecalciferol (Vitamin D3) [Vitamin D3] 50 MCG Tablet) PO SCH (10:00)
[2023-07-30] MEDS ORDERED: DILTIAZEM HCL 180 MG PO SCH (10:00)
[2023-07-30] MEDS ORDERED: NON-FORMULARY ITEM (Multivitamin [Multivitamin] 1 EACH Tablet) PO SCH (10:00)
[2023-07-30] MEDS ORDERED: NON-FORMULARY ITEM (Bupropion Hcl [Wellbutrin Xl] 300 MG Tab.Er.24h) PO SCH (10:00)
[2023-07-30] MEDS: Protonix 40MG Tablet PO SCH (10:14)
[2023-07-30] MEDS ORDERED: COUMADIN PO SCH (18:00)
== END 2023-07-30 11:00 | disposition home or self-care (01) ==
LOC: ED 18:09 → MED SURG 23:41
PROVIDERS: ADMIT Student in an Organized Health Care Education/Training Program; ATTEND Student in an Organized Health Care Education/Training Program
DX: K57.92 Diverticulitis of intestine, part unspecified, without perforation or abscess without bleeding (principal); R10.9 Unspecified abdominal pain; R19.7 Diarrhea, unspecified; R11.2 Nausea with vomiting, unspecified; K21.9 Gastro-esophageal reflux disease without esophagitis; R33.9 Retention of urine, unspecified; I25.2 Old myocardial infarction; I25.10 Atherosclerotic heart disease of native coronary artery without angina pectoris; Z79.01 Long term (current) use of anticoagulants; Z79.899 Other long term (current) drug therapy; Z20.828 Contact with and (suspected) exposure to other viral communicable diseases
CPT/HCPCS: 0241U; 36000; 36415; 71045; 74177; 80053; 81001; 82150; 83605; 83690; 83735; 84132; 84484; 85025; 85027; 85610; 85730; 86308; 87651; 93005; 93268; 94660; 94760; 96374; 96375; 99285; G0378; Q3014; J1200; J2270; J2405; J3010; J3430; A9270-GY